=== PATIENT | female | born 1965 | race Caucasian/White ===

== ENCOUNTER 2020-09-20 07:42 | Outpatient (REF) | payer BC, SELFPAY ==
[2020-09-20 12:08] LABS: Alanine Aminotransferase 19 U/L (0-31); Alkaline Phosphatase 105 U/L (39-117); Anion Gap 14 (12-20); Aspartate Amino Transferase 20 U/L (5-31); Bilirubin Total 0.4 mg/dL (0.0-1.0); Blood Urea Nitrogen 12 mg/dL (9-16); Carbon Dioxide 26 mmol/L (22-29); Chloride 103 mmol/L (96-108); Cholesterol 165 mg/dL; Estimated Glomerular Filt Rate > 60; Glucose Fasting 215 mg/dL (60-99); HDL Cholesterol 42 mg/dL; LDL Cholesterol Calculated 73 mg/dl; Potassium 4.7 mmol/l (3.3-5.1); Sodium 138 mmol/L (135-145); Total Protein 6.6 g/dL (6.5-8.0); Triglycerides 250 mg/dL
[2020-09-20 12:29] LABS: Vitamin D 25-OH Total 38.4 ng/mL (>30)
[2020-09-20 12:39] LABS: Creatinine Urine 179.74 mg/dL; Microalbum/Creatinine Ratio Ur 31.1 ug/mg cr
== END 2020-09-20 07:43 | disposition home or self-care (01) ==
LOC: HO.HMGCLDS 07:42
PROVIDERS: PCP Internal Medicine; Visit Provider Internal Medicine
DX: E11.65 Type 2 diabetes mellitus with hyperglycemia (principal); E89.40 Asymptomatic postprocedural ovarian failure; E78.5 Hyperlipidemia, unspecified; I10 Essential (primary) hypertension
CPT/HCPCS: 80053; 80061; 82043; 82306

== ENCOUNTER 2020-10-05 15:12 | Outpatient (REF) | payer BC, SELFPAY ==
[2020-10-05 16:39] LABS: MANUAL DIFF FLAG NO
[2020-10-05 16:48] LABS: Basophils Percent Auto 0.4 % (0-2); Eosinophils Absolute Auto 0.2 X10*3/uL (0.0-0.4); Eosinophils Percent Auto 2.4 % (0-4); Hematocrit 39.3 % (37-47); Hemoglobin 13.3 g/dl (12.0-16.0); Imm Gran Abs Auto 0.04 X10*3/uL (0.00-0.03); Imm Gran Pct Auto 0.5 % (0.0-0.4); Lymphocytes Absolute Auto 1.9 X10*3/uL (1.2-4.9); Lymphocytes Percent Auto 22.2 % (20-40); Mean Corpuscular HGB Conc 33.8 g/dl (31.0-35.0); Mean Corpuscular Hemoglobin 29.1 pg (27.0-33.0); Mean Platelet Volume 9.9 fL (9.4-12.3); Monocytes Absolute Auto 0.9 X10*3/uL (0.1-1.2); Monocytes Percent Auto 10.9 % (2-11); Neutrophils Absolute Auto 5.4 X10*3/uL (2.0-8.3); Neutrophils Percent Auto 63.6 % (45-73); Platelet Count 289 X10*3/uL (160-400); Red Blood Count 4.57 X10*6/uL (4.20-5.50); Red Cell Distribution Width 12.4 % (11.0-16.0); White Blood Count 8.4 X10*3/uL (4.8-10.8)
[2020-10-05 17:05] LABS: Anion Gap 17 (12-20); Blood Urea Nitrogen 15 mg/dL (9-16); Calcium 9.6 mg/dL (8.4-10.2); Carbon Dioxide 25 mmol/L (22-29); Chloride 103 mmol/L (96-108); Estimated Glomerular Filt Rate > 60; Glucose Random 98 mg/dL (60-115); Potassium 5.1 mmol/l (3.3-5.1); Sodium 140 mmol/L (135-145)
== END 2020-10-05 15:13 | disposition home or self-care (01) ==
LOC: HO.HMGCLDS 15:12
PROVIDERS: PCP Internal Medicine; Visit Provider Nurse Practitioner Family
DX: R10.9 Unspecified abdominal pain (principal); Z13.9 Encounter for screening, unspecified
CPT/HCPCS: 36415; 80048; 85025

== ENCOUNTER 2020-10-07 11:13 | Outpatient (REF) | payer BC, SELFPAY ==
--- NOTE | 2020-10-07 11:16 | US_ITS ---
EXAMINATION: US RETROPERITONEAL LIMITED (RENAL ONLY) CLINICAL INFORMATION: Left flank pain. COMPARISON: CT abdomen and pelvis without and with contrast 05/09/2012 TECHNIQUE: Ultrasound of the kidneys and bladder is performed. FINDINGS: RIGHT KIDNEY: 11.1 x 6.3 x 4.8 cm (SAG x AP x TRV). The kidney is normal in size, contour, and echogenicity. Renal cortical thickness is normal. No calculi or focal parenchymal lesions. No hydronephrosis. LEFT KIDNEY: 14.1 x 6.2 x 4.6 cm (SAG x AP x TRV). There is mild to moderate left hydronephrosis. There is mild proximal hydroureter. Obstructing calculus is not identified by ultrasound. No visible intrarenal calculi. No perinephric fluid. The kidney is normal in size, contour, and echogenicity. Renal cortical thickness is normal. No calculi or focal parenchymal lesions. BLADDER: Nondistended. Visualized lumen shows no debris or bladder calculus. US/US renal BI IMPRESSION: 1. Left: Mild to moderate left hydronephrosis and proximal hydroureter. No visible calculi by ultrasound. 2. Right kidney unremarkable. Bladder not distended.
== END 2020-10-07 11:14 | disposition home or self-care (01) ==
LOC: HO.HMGCX 11:13
PROVIDERS: PCP Internal Medicine; Visit Provider Nurse Practitioner Family
DX: R31.9 Hematuria, unspecified (principal); R10.9 Unspecified abdominal pain
CPT/HCPCS: 76775

== ENCOUNTER 2020-10-10 09:32 | Emergency (ER) | payer BC, SELFPAY ==
[2020-10-10 09:47] VITALS: BP 171/83; PULSE 87; RESP 20; TEMP 36.7; O2SAT 98; BMI 28.5
--- NOTE | 2020-10-10 10:00 | ED.ABDPAIN ---
HPI - Abdominal Pain General Chief Complaint: Abdominal Pain Stated Complaint: kidney pain Time Seen by Provider: 10/10/20 09:59 Source: patient Mode of arrival: ambulatory Limitations: no limitations History of Present Illness HPI narrative: patient with history of kidney stones had lithotripsy in the past last stone was 8 years ago been having pain in left flank area for last 10 days off and on for last few days is getting worse and since 04:00 o'clock in the morning pain got worse now radiating to the front with lewis hematuria patient denies any nausea or vomiting no fever no dysuria MD elicited complaint: flank pain Pertinent past history: kidney stones Onset (ago): day(s) (10) Pain Consistency: intermittent Location: L flank Severity: moderate Quality: stabbing Radiation: LLQ Migration to: no migration Exacerbating factors: nothing Context: history of similar episodes Associated symptoms: denies other symptoms Related Data Home Medications Medication Instructions Recorded Confirmed biotin 10,000 mcg capsule mcg PO 09/17/20 cholecalciferol (vitamin D3) 50 50 mcg PO DAILY 09/17/20 mcg (2,000 unit) capsule chromium picolinate 400 mcg tablet 800 mcg PO DAILY 09/17/20 cinnamon bark 500 mg capsule 1,000 mg PO DAILY 09/17/20 flu vac qs 2019(4 yr up)CD(PF) ml IM 09/17/20 multivit,mineral-folic acid 800 tab PO 09/17/20 mcg-vit K 100 mcg-herbal no.289 tablet pravastatin 80 mg tablet 80 mg PO DAILY 09/17/20 Previous Rx's Medication Instructions Recorded glipizide 5 mg tablet, extended 5 mg PO .BID with meals Days 09/17/20 release 24 hr #180 tab losartan 50 mg tablet 50 mg PO DAILY 90 Days #90 tab 09/17/20 metformin 1,000 mg tablet 1,000 mg PO BID 90 Days #180 tab 09/17/20 naproxen 500 mg tablet 500 mg PO BID PRN #60 tab 10/07/20 ondansetron 4 mg PO Q6-8H PRN #10 tab 10/10/20 oxycodone 5 mg PO Q6H PRN #20 tab 10/10/20 Allergies Allergy/AdvReac Type Severity Reaction Status Date / Time No Known Allergies Allergy Verified 09/17/20 11:05 Review of Systems Review of Systems REVIEW OF SYSTEMS: Pertinent positives and negatives are stated above in the history. GEN: no fevers, chills, fatigue HEENT: no nasal congestion, sore throat, ear pain NEURO: no headache, dizziness, focal weakness PULM: no cough, shortness of breath CV: no chest pain, palpitations, LE edema ABD: no nausea, vomiting, diarrhea : no dysuria, urgency, frequency SKIN: no rash ROS otherwise negative x 10 Physical Exam Vital Signs: Vital Signs: Last Vital Signs Temp 97.7 F 10/10/20 11:34 Pulse 81 10/10/20 11:34 Resp 18 10/10/20 11:34 BP 178/94 H 10/10/20 11:34 Pulse Ox 100 10/10/20 11:34 Body Mass Index 28.5 Appearance: Alert. Oriented X3. in moderate distress. Eyes: Pupils equal, round and reactive to light. ENT: Pharynx normal. Neck: Normal inspection. Neck supple. CVS: Normal heart rate and rhythm. Pulses normal. Respiratory: No respiratory distress. Breath sounds normal. Abdomen: Soft and nontender. tenderness + left flank area , bowel sounds are present no mass palpable no hernia palpable Skin: Skin warm and dry. Normal skin color. Normal skin turgor. Extremities: No lower extremity edema. Good range of movement Neuro: Oriented X 3. No motor deficit. No sensory deficit. MDM - Abdominal Pain MDM Narrative Medical decision making narrative: Patient with left flank pain with history of kidney stone hematuria in her urine. CT scan of the abdomen showed 4 mm distal left ureteric stone with moderate hydronephrosis patient received pain medication IV fluids feeling much better now will discharge her home on pain management and follow-up with urologist Differential Diagnosis Differential diagnosis: Likely calculus of kidney Medical Records Attestation: I reviewed the patient's medical records. Lab Data Attestation: I reviewed the patient's lab results. Result diagrams: 10/10/20 10:11 10/10/20 10:11 Labs: Lab Results 10/10/20 10/10/20 10/10/20 Range/Units 10:11 10:11 10:11 WBC 9.6 (4.8-10.8) X10*3/uL RBC 4.54 (4.20-5.50) X10*6/uL Hgb 13.2 (12.0-16.0) g/dl Hct 38.8 (37-47) % MCV 85.5 (80-98) fL MCH 29.1 (27.0-33.0) pg MCHC 34.0 (31.0-35.0) g/dl RDW 12.2 (11.0-16.0) % Plt Count 299 (160-400) X10*3/uL MPV 9.3 L (9.4-12.3) fL Immature Gran % (Auto) 0.5 H (0.0-0.4) % Neut % (Auto) 71.6 (45-73) % Lymph % (Auto) 17.3 L (20-40) % [place] % (Auto) 7.6 (2-11) % Eos % (Auto) 2.6 (0-4) % Baso % (Auto) 0.4 (0-2) % Lymph # (Auto) 1.7 (1.2-4.9) X10*3/uL [place] # (Auto) 0.7 (0.1-1.2) X10*3/uL Eos # (Auto) 0.3 (0.0-0.4) X10*3/uL Baso # (Auto) 0.0 (0.0-0.2) X10*3/uL Abs Immat Gran (auto) 0.05 H (0.00-0.03) X10*3/uL Absolute Neuts (auto) 6.9 (2.0-8.3) X10*3/uL Absolute Nucleated RBC 0.000 (0.0-0.012) X10*3/uL Nucleated RBC % (auto) 0.0 (0.0-0.2) /100WBC PT 10.5 L (10.8-13.0) SEC INR 0.9 (0.9-1.1) Sodium 138 (135-145) mmol/L Potassium 4.5 (3.3-5.1) mmol/l Chloride 100 (96-108) mmol/L Carbon Dioxide 24 (22-29) mmol/L Anion Gap 19 (12-20) BUN 21 H (9-16) mg/dL Creatinine 1.14 (0.5-1.4) mg/dL Estim Creat Clear Calc 44.2 Estimated GFR 49 Random Glucose 272 H D (60-115) mg/dL Calcium 9.5 (8.4-10.2) mg/dL Urine Color Urine Appearance Urine pH (5.0-8.0) Ur Specific [place] (1.005-1.025) Urine Protein (NEG-TRACE) MG/DL Urine Glucose (UA) (NEG) MG/DL Urine Ketones (NEG) MG/DL Urine Blood (NEG) Urine Nitrite (NEG) Ur Leukocyte Esterase (NEG) Urine RBC (0) /HPF Urine WBC (0-4) /HPF Ur Squamous Epith Cells /LPF Urine Bacteria /LPF 10/10/20 Range/Units 11:37 WBC (4.8-10.8) X10*3/uL RBC (4.20-5.50) X10*6/uL Hgb (12.0-16.0) g/dl Hct (37-47) % MCV (80-98) fL MCH (27.0-33.0) pg MCHC (31.0-35.0) g/dl RDW (11.0-16.0) % Plt Count (160-400) X10*3/uL MPV (9.4-12.3) fL Immature Gran % (Auto) (0.0-0.4) % Neut % (Auto) (45-73) % Lymph % (Auto) (20-40) % [place] % (Auto) (2-11) % Eos % (Auto) (0-4) % Baso % (Auto) (0-2) % Lymph # (Auto) (1.2-4.9) X10*3/uL [place] # (Auto) (0.1-1.2) X10*3/uL Eos # (Auto) (0.0-0.4) X10*3/uL Baso # (Auto) (0.0-0.2) X10*3/uL Abs Immat Gran (auto) (0.00-0.03) X10*3/uL Absolute Neuts (auto) (2.0-8.3) X10*3/uL Absolute Nucleated RBC (0.0-0.012) X10*3/uL Nucleated RBC % (auto) (0.0-0.2) /100WBC PT (10.8-13.0) SEC INR (0.9-1.1) Sodium (135-145) mmol/L Potassium (3.3-5.1) mmol/l Chloride (96-108) mmol/L Carbon Dioxide (22-29) mmol/L Anion Gap (12-20) BUN (9-16) mg/dL Creatinine (0.5-1.4) mg/dL Estim Creat Clear Calc Estimated GFR Random Glucose (60-115) mg/dL Calcium (8.4-10.2) mg/dL Urine Color YELLOW Urine Appearance CLOUDY Urine pH 6.5 (5.0-8.0) Ur Specific [place] 1.020 (1.005-1.025) Urine Protein NEG (NEG-TRACE) MG/DL Urine Glucose (UA) >=1000 H (NEG) MG/DL Urine Ketones NEG (NEG) MG/DL Urine Blood 3+ H (NEG) Urine Nitrite NEG (NEG) Ur Leukocyte Esterase NEG (NEG) Urine RBC TNTC H (0) /HPF Urine WBC 0-2 (0-4) /HPF Ur Squamous Epith Cells NONE /LPF Urine Bacteria NONE /LPF Discharge Plan Discharge Clinical Impression: Kidney stone on left side Patient Disposition: Home, Self-Care Instructions: Kidney Stones (ED) Additional Instructions: Take Flomax daily as advised till you have pain. Pain medication as prescribed. Follow-up with urologist Prescriptions: New oxycodone 5 mg tablet 5 mg PO Q6H PRN (Reason: pain) Qty: 20 RF: 0 ondansetron 4 mg tablet,disintegrating 4 mg PO Q6-8H PRN (Reason: nausea and vomiting) Qty: 10 RF: 0 No Action naproxen 500 mg tablet 500 mg PO BID PRN (Reason: pain) Qty: 60 RF: 0 pravastatin 80 mg tablet 80 mg PO DAILY RF: 0 Flucelvax Quad [id number] (PF) 60 mcg (15 mcg x 4)/0.5 mL syringe IM RF: 0 Alive Once Daily Women 50 Plus 800-100 mcg tablet PO RF: 0 cholecalciferol (vitamin D3) 50 mcg (2,000 unit) capsule 50 mcg PO DAILY RF: 0 biotin 10,000 mcg capsule PO RF: 0 cinnamon bark [Cinnamon] 500 mg capsule 1,000 mg PO DAILY RF: 0 chromium picolinate 400 mcg tablet 800 mcg PO DAILY RF: 0 glipizide 5 mg tablet extended release 24hr 5 mg PO .BID with meals 90 Days Qty: 180 RF: 0 metformin 1,000 mg tablet 1,000 mg PO BID 90 Days Qty: 180 RF: 0 losartan 50 mg tablet 50 mg PO DAILY 90 Days Qty: 90 RF: 0 Referrals: Case Castillo MD [Physician] - 3 days [facility] Past Medical History Medical History Diabetes mellitus with hyperglycemia, without long-term current use of insulin Dyslipidemia Essential hypertension Osteoarthritis of left knee Surgical menopause Uterine fibroid Surgical History History of partial hysterectomy Family History Family History Father Diabetes Hypertension Pacemaker Stroke Mother No problems noted. Brother Diabetes Heart disease Brother No problems noted. Sister Family hx-anemia Social History Social History Alcohol intake: never Smoking Status: Never smoker Use of substances other than those prescribed or required for medical reasons: No Advance Directives: No Advance Directives Information Provided: No
--- NOTE | 2020-10-10 10:05 | CT_ITS ---
EXAMINATION: CT ABDOMEN AND PELVIS WITHOUT CONTRAST CLINICAL INFORMATION: Left flank pain with history of stone right COMPARISON: None TECHNIQUE: Multidetector volumetric imaging was performed from the superior aspect of the liver through the pubic symphysis. Sagittal and coronal reformatted images were obtained on the technologist's workstation. This CT examination was performed using dose optimization techniques as appropriate, variously including the following: *Automated exposure control *Adjustment of mA and/or kV according to patient size (this includes techniques or standardized protocols for targeted exams where dose is matched to indication/reason for exam; i.e. extremities or head) *Use of iterative reconstruction technique DLP: 570 mGy-cm FINDINGS: LUNG BASES: The visualized lung bases are unremarkable. LIVER, GALLBLADDER, AND BILIARY TREE: The liver is normal in size, shape, and attenuation. No focal hepatic lesion or biliary ductal dilatation is present. The gallbladder is unremarkable with no evidence of radiopaque gallstones, gallbladder wall thickening, or obvious pericholecystic inflammatory changes. PANCREAS: Unremarkable. SPLEEN: Unremarkable. ADRENAL GLANDS: Unremarkable. KIDNEYS AND URETERS: The kidneys are normal in size, shape, and attenuation. No radiopaque renal calculi seen in the kidneys. There is a 4 mm obstructive left distal ureter radiopaque calculi with mild to moderate hydroureteronephrosis and mild left perinephric stranding. A small extrarenal right kidney pelvises seen there is mild right perinephric stranding. BLADDER: Unremarkable. GASTROINTESTINAL TRACT: There is scattered stool in the right colon without distention. The small bowel loops are normal caliber. Appendix is normal caliber. No inflammatory process seen the abdomen. The stomach is distended recently ingested food. ABDOMINAL WALL: No significant hernia is appreciated. LYMPH NODES: Normal. VASCULAR: Unremarkable. PELVIC VISCERA: The uterus is unremarkable. No adnexal mass or inguinal hernia seen OSSEOUS STRUCTURES: Grade 1 anterolisthesis L4 over L5. There is degenerative disc changes at L4-L5 disc level with mild ventral spondylosis throughout lumbar spine. CT/CT abdomen pelvis wo con IMPRESSION: 4 mm obstructive left distal ureteral stone with mild to moderate hydroureteronephrosis. There is bilateral perinephric stranding without any radiopaque renal calculi. Normal appendix.
[2020-10-10 10:16] LABS: Basophils Percent Auto 0.4 % (0-2); Eosinophils Absolute Auto 0.3 X10*3/uL (0.0-0.4); Eosinophils Percent Auto 2.6 % (0-4); Hematocrit 38.8 % (37-47); Hemoglobin 13.2 g/dl (12.0-16.0); Imm Gran Abs Auto 0.05 X10*3/uL (0.00-0.03); Imm Gran Pct Auto 0.5 % (0.0-0.4); Lymphocytes Absolute Auto 1.7 X10*3/uL (1.2-4.9); Lymphocytes Percent Auto 17.3 % (20-40); Mean Corpuscular Hemoglobin 29.1 pg (27.0-33.0); Mean Corpuscular Volume 85.5 fL (80-98); Mean Platelet Volume 9.3 fL (9.4-12.3); Monocytes Absolute Auto 0.7 X10*3/uL (0.1-1.2); Monocytes Percent Auto 7.6 % (2-11); Neutrophils Absolute Auto 6.9 X10*3/uL (2.0-8.3); Neutrophils Percent Auto 71.6 % (45-73); Platelet Count 299 X10*3/uL (160-400); Red Blood Count 4.54 X10*6/uL (4.20-5.50); Red Cell Distribution Width 12.2 % (11.0-16.0); White Blood Count 9.6 X10*3/uL (4.8-10.8)
[2020-10-10 10:17] LABS: MANUAL DIFF FLAG NO
[2020-10-10] MEDS: Morphine Sulfate 4 MG/ML CARTRIDGE IVPUSH (10:19)
[2020-10-10] MEDS: 0.9 % Sodium Chloride 1,000 ML 999 ML IVCONT (10:19)
[2020-10-10] MEDS: ondansetron HCL 4 MG/2 ML VIAL IVPUSH (10:20)
[2020-10-10] MEDS: Ketorolac Tromethamine 30 MG/ML VIAL IVPUSH (10:20)
[2020-10-10 10:21] LABS: INTERNATIONAL NORM RATIO 0.9 (0.9-1.1); Prothrombin Time 10.5 SEC (10.8-13.0)
[2020-10-10 10:42] LABS: Anion Gap 19 (12-20); Blood Urea Nitrogen 21 mg/dL (9-16); Calcium 9.5 mg/dL (8.4-10.2); Carbon Dioxide 24 mmol/L (22-29); Chloride 100 mmol/L (96-108); Creatinine Clr Calc Pharmacy 44.2; Estimated Glomerular Filt Rate 49; Glucose Random 272 mg/dL (60-115); Potassium 4.5 mmol/l (3.3-5.1); Sodium 138 mmol/L (135-145)
--- NOTE | 2020-10-10 10:51 | PC.NURSE ---
pt reports feeling better after the medication, pain at 5/10
[2020-10-10 10:52] VITALS: BP 183/87; RESP 18
[2020-10-10 11:34] VITALS: BP 178/94; PULSE 81; RESP 18; TEMP 36.5; O2SAT 100
--- NOTE | 2020-10-10 11:38 | PC.NURSE ---
patient a&ox3, c/o low abd/pelvic area pain7-06/14, pt ambulated to bathroom/urine obtained, vss-pt continues to be hypertensive, will continue to monitor.
[2020-10-10 11:49] LABS: Glucose Urine UA >=1000 MG/DL (NEG); Leukocyte Esterase Urine NEG (NEG); Nitrite Urine NEG (NEG); PH 6.5 (5.0-8.0); Urine Blood 3+ (NEG); Urine Ketones NEG (NEG); Urine Protein NEG (NEG-TRACE)
[2020-10-10 11:51] LABS: Appearance Urine CLOUDY; Color Urine YELLOW
[2020-10-10 11:58] LABS: RBC Urine TNTC /HPF (0); WBC Urine 0-2 /HPF (0-4)
[2020-10-10] MEDS: oxyCODONE HCl Immed Release 5 MG TABLET 10 MG PO (13:00)
== END 2020-10-10 13:30 | disposition home or self-care (01) ==
PROVIDERS: Emergency Provider Internal Medicine; PCP Internal Medicine
DX: N20.0 Calculus of kidney (principal); R10.32 Left lower quadrant pain; Z79.899 Other long term (current) drug therapy
CPT/HCPCS: 36415; 74176; 80048; 81001; 85025; 85610; 96361; 96374; 96375; 99284; J1885; J2270; J2405

== ENCOUNTER 2020-12-20 14:22 | Outpatient (REF) | payer BC, SELFPAY | END 2020-12-20 14:23 | disposition home or self-care (01) | LOC: HO.LAB 14:22 | PROVIDERS: Visit Provider Nurse Practitioner Family | DX: N39.0 Urinary tract infection, site not specified (principal) | CPT/HCPCS: 87086 ==

== ENCOUNTER 2020-12-22 07:58 | Outpatient (REF) | payer BC, SELFPAY ==
--- NOTE | ~2020-12-22 | MM_ITS ---
EXAMINATION: MM SCREENING DIGITAL BREAST TOMOSYNTHESIS, BILATERAL CLINICAL INFORMATION: Screening. Asymptomatic. The lifetime risk of breast cancer based on the Tyrer-Cuzick Model is 6%. COMPARISON: Mammography: 11/19/2019, 11/13/2018, 10/18/2017 TECHNIQUE: Digital breast tomosynthesis is performed in both the craniocaudal and mediolateral oblique views along with computer-aided detection (CAD). Synthesized 2D images are generated from the tomosynthesis. Additional left CC view is provided. FINDINGS: There are scattered areas of fibroglandular density (ACR BI-RADS breast composition Category b). There are no significant masses, abnormal calcifications, or other abnormalities. Parenchymal pattern is similar to prior studies. No significant changes. MM/MM tomosynthesis screening BI IMPRESSION: No mammographic evidence of malignancy. ASSESSMENT: BI-RADS 1: Negative RECOMMENDATION: Routine annual mammography screening. This patient's information was entered into a reminder system with a target due date for their next mammogram.
== END 2020-12-22 07:59 | disposition home or self-care (01) ==
LOC: HO.MAMMO 07:58
PROVIDERS: PCP Internal Medicine; Visit Provider Internal Medicine
DX: Z12.31 Encounter for screening mammogram for malignant neoplasm of breast (principal)
CPT/HCPCS: 77063; 77067

== ENCOUNTER 2020-12-24 07:36 | Emergency (ER) | payer BC, SELFPAY ==
--- NOTE | ~2020-12-24 | CT_ITS ---
EXAMINATION: CT ABDOMEN AND PELVIS WITHOUT CONTRAST CLINICAL INFORMATION: Left flank pain COMPARISON: Previous CT October 2020 TECHNIQUE: Multidetector volumetric imaging was performed from the superior aspect of the liver through the pubic symphysis. Sagittal and coronal reformatted images were obtained on the technologist's workstation. This CT examination was performed using dose optimization techniques as appropriate, variously including the following: *Automated exposure control *Adjustment of mA and/or kV according to patient size (this includes techniques or standardized protocols for targeted exams where dose is matched to indication/reason for exam; i.e. extremities or head) *Use of iterative reconstruction technique DLP: 503 mGy-cm FINDINGS: LUNG BASES: The visualized lung bases are unremarkable. LIVER, GALLBLADDER, AND BILIARY TREE: The liver is normal in size, shape, and attenuation. No focal hepatic lesion or biliary ductal dilatation is present. The gallbladder is unremarkable with no evidence of radiopaque gallstones, gallbladder wall thickening, or obvious pericholecystic inflammatory changes. PANCREAS: Unremarkable. SPLEEN: Unremarkable. ADRENAL GLANDS: Unremarkable. KIDNEYS AND URETERS: There is mild left hydronephrosis and ureteral dilatation from a 3 x 4 mm left distal ureteral stone. There has been little movement of the stone compared to October 2020 exam. The right kidney is unremarkable. BLADDER: Unremarkable. GASTROINTESTINAL TRACT: The small and large bowel are unremarkable. The appendix is unremarkable. ABDOMINAL WALL: No significant hernia is appreciated. LYMPH NODES: Normal. VASCULAR: There is evidence of mild atherosclerotic disease. PELVIC VISCERA: Unremarkable. OSSEOUS STRUCTURES: There is mild anterior subluxation of L3-L4 with respect L5 probably due to facet arthritis. There are degenerative changes of the spine. CT/CT abdomen pelvis wo con IMPRESSION: Mild left hydronephrosis and ureteral dilatation from a 3 x 4 mm left distal ureteral stone. There is been little distal movement of the stone compared to previous exam October 2020.
[2020-12-24 07:47] VITALS: BP 157/79; PULSE 103; RESP 16; TEMP 36.1; O2SAT 100; BMI 29.2
--- NOTE | 2020-12-24 08:06 | ED.ABDPAIN ---
HPI - Abdominal Pain General Chief Complaint: Abdominal Pain Stated Complaint: VOMITING 3 DAYS Time Seen by Provider: 12/24/20 08:03 Source: patient Mode of arrival: ambulatory Limitations: no limitations History of Present Illness HPI narrative: 55 yo female here with epigastric pain and n/v just dx with UTI on Sunday by PCP started on macrobid which she has been able to keep down her antibiotic but then noted L flank pain on Sunday has hx of stones took oxycodone she had at home since then has had epigastric pain n/v since but can keep her antibiotics down MD elicited complaint: abdominal pain and flank pain Pertinent past history: past UTI Onset (ago): day(s) (4 days ago ) Pain Consistency: intermittent Location: epigastric and L flank Severity: moderate Quality: stabbing Radiation: none Migration to: no migration Exacerbating factors: eating Relieving factors: vomiting Context: recent antibiotic use Associated symptoms: nausea and vomiting Related Data Home Medications Medication Instructions Recorded Confirmed biotin 10,000 mcg capsule mcg PO 09/17/20 cholecalciferol (vitamin D3) 50 50 mcg PO DAILY 09/17/20 mcg (2,000 unit) capsule chromium picolinate 400 mcg tablet 800 mcg PO DAILY 09/17/20 cinnamon bark 500 mg capsule 1,000 mg PO DAILY 09/17/20 flu vac qs 2019(4 yr up)CD(PF) ml IM 09/17/20 multivit,mineral-folic acid 800 tab PO 09/17/20 mcg-vit K 100 mcg-herbal no.289 tablet pravastatin 80 mg tablet 80 mg PO DAILY 09/17/20 Previous Rx's Medication Instructions Recorded naproxen 500 mg tablet 500 mg PO BID PRN #60 tab 10/07/20 ondansetron 4 mg PO Q6-8H PRN #10 tab 10/10/20 oxycodone 5 mg PO Q6H PRN #20 tab 10/10/20 glipizide 5 mg tablet, extended 5 mg PO BID #60 tab 12/06/20 release 24 hr losartan 50 mg tablet 50 mg PO DAILY #30 tab 12/07/20 metformin 1,000 mg tablet 1,000 mg PO BID #60 tab 12/07/20 nitrofurantoin macrocrystal 100 mg 100 mg PO BID 7 Days #14 cap 12/20/20 capsule cyclobenzaprine 10 mg PO TID PRN #14 tab 12/24/20 metoclopramide HCl [Reglan] 10 mg PO Q6H PRN #20 tab 12/24/20 omeprazole 20 mg PO DAILY 10 Days #10 cap 12/24/20 ondansetron 4 mg PO Q8H PRN #20 tab 12/24/20 tamsulosin 0.4 mg PO DAILY 5 Days #5 cap 12/24/20 Allergies Allergy/AdvReac Type Severity Reaction Status Date / Time No Known Allergies Allergy Verified 09/17/20 11:05 Review of Systems Review of Systems Constitutional : No Weight loss, No Fever, No Chills ENT/Mouth : No sore throat, No Rhinorrhea Eyes: No Swelling, No Redness Cardiovascular : No Chest Pain, No SOB, NoEdema Respiratory : No Cough, No Sputum, No Wheezing Gastrointestinal : Positive Nausea, Positive Vomiting, no Diarrhea, positive abdominal Pain, No Hematochezia, No Melena Genitourinary : pos Dysuria, pos Urinary Frequency, No Hematuria, No Urgency Musculoskeletal : No joint pain, No Myalgias, No Joint Swelling Skin : No Skin Lesions, No rash Neuro : No Weakness, No Numbness, No Dizziness, No Headache Psych : No Anxiety/Panic, No Depression Heme/Lymph: No Bruising, No Lymphadenopathy Endocrine : No Polyuria, No Polydipsia All other systems reviewed and are negative. Physical Exam Vital Signs: Vital Signs: Last Vital Signs Temp 97.0 F 12/24/20 07:47 Pulse 85 12/24/20 13:13 Resp 16 12/24/20 13:12 BP 161/85 H 12/24/20 13:13 Pulse Ox 97 12/24/20 13:13 Body Mass Index 29.2 Appearance: Alert. Oriented X3. No acute distress. Eyes: Pupils equal, round and reactive to light. ENT: Pharynx normal. Neck: Normal inspection. Neck supple. CVS: Normal heart rate and rhythm. Pulses normal. Respiratory: No respiratory distress. Breath sounds normal. Abdomen: Soft and epigastric ttp no rebound or guarding. Skin: Skin warm and dry. Normal skin color. Normal skin turgor. Extremities: No lower extremity edema. No calf ttp Neuro: Oriented X 3. No motor deficit. No sensory deficit. Course Course Course Narrative: no movement of stone, normal renal function, she feels much better - will let Urology know as she will need a definitive procedure to correct her pain Dr. Castillo to come evaluate the patient feels better able to tolerate PO, patient states she is going to follow up next week MDM - Abdominal Pain MDM Narrative Medical decision making narrative: 55 yo female with hx of UTI, DM, HTN, HPL here with recent UTI and start of L flank pain then developed epigastric pain with n/v - at this time will need labs, CT scan for renal colic, IVF and IV medications for nausea/reflux, repeat UA dispo per results and findings. Lab Data Result diagrams: 12/24/20 08:24 12/24/20 08:24 Labs: Lab Results 12/24/20 12/24/20 12/24/20 Range/Units 08:24 08:24 08:24 WBC 8.2 (4.8-10.8) X10*3/uL RBC 4.84 (4.20-5.50) X10*6/uL Hgb 13.9 (12.0-16.0) g/dl Hct 41.1 (37-47) % MCV 84.9 (80-98) fL MCH 28.7 (27.0-33.0) pg MCHC 33.8 (31.0-35.0) g/dl RDW 12.8 (11.0-16.0) % Plt Count 315 (160-400) X10*3/uL MPV 9.6 (9.4-12.3) fL Immature Gran % (Auto) 0.5 H (0.0-0.4) % Neut % (Auto) 78.7 H (45-73) % Lymph % (Auto) 13.8 L (20-40) % Alexander % (Auto) 6.7 (2-11) % Eos % (Auto) 0.2 (0-4) % Baso % (Auto) 0.1 (0-2) % Lymph # (Auto) 1.1 L (1.2-4.9) X10*3/uL Alexander # (Auto) 0.6 (0.1-1.2) X10*3/uL Eos # (Auto) 0.0 (0.0-0.4) X10*3/uL Baso # (Auto) 0.0 (0.0-0.2) X10*3/uL Abs Immat Gran (auto) 0.04 H (0.00-0.03) X10*3/uL Absolute Neuts (auto) 6.4 (2.0-8.3) X10*3/uL Absolute Nucleated RBC 0.000 (0.0-0.012) X10*3/uL Nucleated RBC % (auto) 0.0 (0.0-0.2) /100WBC Hold Blue Top SEE NOTE Sodium 135 (135-145) mmol/L Potassium 4.8 (3.3-5.1) mmol/L Chloride 93 L (96-108) mmol/L Carbon Dioxide 31 H (22-29) mmol/L Anion Gap 16 (12-20) BUN 22 H (9-16) mg/dL Creatinine 0.81 (0.5-1.4) mg/dL Estim Creat Clear Calc 63.2 Estimated GFR > 60 Random Glucose 316 H (60-115) mg/dL Calcium 11.1 H D (8.4-10.2) mg/dL Magnesium 1.7 (1.6-2.6) mg/dL Total Bilirubin 0.7 (0.0-1.0) mg/dL Direct Bilirubin 0.3 (0.0-0.5) mg/dL AST 18 (5-31) U/L ALT 21 (0-31) U/L Alkaline Phosphatase 77 D (39-117) U/L Total Protein 7.6 (6.5-8.0) g/dL Albumin 4.7 (3.5-5.0) g/dL Lipase 13 (8-78) U/L Urine Color Urine Appearance Urine pH (5.0-8.0) Ur Specific [place] (1.005-1.025) Urine Protein (NEG-TRACE) MG/DL Urine Glucose (UA) (NEG) MG/DL Urine Ketones (NEG) MG/DL Urine Blood (NEG) Urine Nitrite (NEG) Ur Leukocyte Esterase (NEG) Urine RBC (0) /HPF Urine WBC (0-4) /HPF Ur Squamous Epith Cells /LPF Urine Bacteria /LPF COVID-19 (VY) (Negative) COVID-19 Clin Com 12/24/20 12/24/20 Range/Units 08:24 11:20 WBC (4.8-10.8) X10*3/uL RBC (4.20-5.50) X10*6/uL Hgb (12.0-16.0) g/dl Hct (37-47) % MCV (80-98) fL MCH (27.0-33.0) pg MCHC (31.0-35.0) g/dl RDW (11.0-16.0) % Plt Count (160-400) X10*3/uL MPV (9.4-12.3) fL Immature Gran % (Auto) (0.0-0.4) % Neut % (Auto) (45-73) % Lymph % (Auto) (20-40) % Alexander % (Auto) (2-11) % Eos % (Auto) (0-4) % Baso % (Auto) (0-2) % Lymph # (Auto) (1.2-4.9) X10*3/uL Alexander # (Auto) (0.1-1.2) X10*3/uL Eos # (Auto) (0.0-0.4) X10*3/uL Baso # (Auto) (0.0-0.2) X10*3/uL Abs Immat Gran (auto) (0.00-0.03) X10*3/uL Absolute Neuts (auto) (2.0-8.3) X10*3/uL Absolute Nucleated RBC (0.0-0.012) X10*3/uL Nucleated RBC % (auto) (0.0-0.2) /100WBC Hold Blue Top Sodium (135-145) mmol/L Potassium (3.3-5.1) mmol/L Chloride (96-108) mmol/L Carbon Dioxide (22-29) mmol/L Anion Gap (12-20) BUN (9-16) mg/dL Creatinine (0.5-1.4) mg/dL Estim Creat Clear Calc Estimated GFR Random Glucose (60-115) mg/dL Calcium (8.4-10.2) mg/dL Magnesium (1.6-2.6) mg/dL Total Bilirubin (0.0-1.0) mg/dL Direct Bilirubin (0.0-0.5) mg/dL AST (5-31) U/L ALT (0-31) U/L Alkaline Phosphatase (39-117) U/L Total Protein (6.5-8.0) g/dL Albumin (3.5-5.0) g/dL Lipase (8-78) U/L Urine Color YELLOW Urine Appearance CLEAR Urine pH 6.0 (5.0-8.0) Ur Specific [place] 1.015 (1.005-1.025) Urine Protein NEG (NEG-TRACE) MG/DL Urine Glucose (UA) 500 H (NEG) MG/DL Urine Ketones 15 (NEG) MG/DL Urine Blood TRACE (NEG) Urine Nitrite NEG (NEG) Ur Leukocyte Esterase NEG (NEG) Urine RBC 1-4 (0) /HPF Urine WBC 5-9 H (0-4) /HPF Ur Squamous Epith Cells 1+ /LPF Urine Bacteria TRACE /LPF COVID-19 (VY) Negative (Negative) COVID-19 Clin Com See Note ECG Data Attestation: I personally reviewed and interpreted this ECG as follows: ECG interpretation date: 12/24/20 ECG interpretation time: 08:27 Interpretation: Rate: 79 Rhythm: NSR [place]: normal Normal P waves. Normal DIDI. Normal QRS complex. ST T wave : normal no VALENTÍN qTC: normal prior studies: no acute ischemia The study has been interpreted contemporaneously by me. . Discharge Plan Discharge Clinical Impression: Flank pain, acute, Ureterolithiasis Vomiting Qualifiers: Vomiting type: unspecified Vomiting Intractability: non-intractable Nausea presence: with nausea Qualified Code(s): R11.2 - Nausea with vomiting, unspecified Patient Disposition: Home, Self-Care Instructions: Renal Colic (ED) Additional Instructions: return to ED for any worsening symptoms or concerns continue your antibiotics Prescriptions: New cyclobenzaprine 10 mg tablet 10 mg PO TID PRN (Reason: muscle spasm) Qty: 14 RF: 0 tamsulosin 0.4 mg capsule 0.4 mg PO DAILY 5 Days Qty: 5 RF: 0 ondansetron 4 mg tablet,disintegrating 4 mg PO Q8H PRN (Reason: nausea and vomiting) Qty: 20 RF: 0 omeprazole 20 mg capsule,delayed release(DR/EC) 20 mg PO DAILY 10 Days Qty: 10 RF: 0 metoclopramide HCl [Reglan] 10 mg tablet 10 mg PO Q6H PRN (Reason: nausea and vomiting) Qty: 20 RF: 0 No Action naproxen 500 mg tablet 500 mg PO BID PRN (Reason: pain) Qty: 60 RF: 0 glipizide 5 mg tablet extended release 24hr 5 mg PO BID Qty: 60 RF: 2 metformin 1,000 mg tablet 1,000 mg PO BID Qty: 60 RF: 2 losartan 50 mg tablet 50 mg PO DAILY Qty: 30 RF: 2 oxycodone 5 mg tablet 5 mg PO Q6H PRN (Reason: pain) Qty: 20 RF: 0 ondansetron 4 mg tablet,disintegrating 4 mg PO Q6-8H PRN (Reason: nausea and vomiting) Qty: 10 RF: 0 nitrofurantoin macrocrystal 100 mg capsule 100 mg PO BID 7 Days Qty: 14 RF: 0 pravastatin 80 mg tablet 80 mg PO DAILY RF: 0 Flucelvax Quad 2911-2725 (PF) 60 mcg (15 mcg x 4)/0.5 mL syringe IM RF: 0 Alive Once Daily Women 50 Plus 800-100 mcg tablet PO RF: 0 cholecalciferol (vitamin D3) 50 mcg (2,000 unit) capsule 50 mcg PO DAILY RF: 0 biotin 10,000 mcg capsule PO RF: 0 cinnamon bark [Cinnamon] 500 mg capsule 1,000 mg PO DAILY RF: 0 chromium picolinate 400 mcg tablet 800 mcg PO DAILY RF: 0 Referrals: Case Castillo MD [Physician] - 3 days (Sunday) Stand Alone Forms: Work/School Release [facility] Past Medical History Attestation statement: The following information was validated with the patient. Medical History Diabetes mellitus with hyperglycemia, without long-term current use of insulin Dyslipidemia Essential hypertension Osteoarthritis of left knee Surgical menopause Uterine fibroid Surgical History History of partial hysterectomy Family History Family History Father Diabetes Hypertension Pacemaker Stroke Mother No problems noted. Brother Diabetes Heart disease Brother No problems noted. Sister Family hx-anemia Social History Social History Alcohol intake: never Smoking Status: Never smoker Use of substances other than those prescribed or required for medical reasons: No Advance Directives: No Advance Directives Information Provided: Yes
--- NOTE | 2020-12-24 08:21 | ECG_ITS ---
Test Reason : EDMD Blood Pressure : / mmHG Vent. Rate : 079 BPM Atrial Rate : 079 BPM P-R Int : 134 ms QRS Dur : 080 ms QT Int : 384 ms P-R-T Axes : 041 -02 006 degrees QTc Int : 440 ms Normal sinus rhythm Normal ECG No previous ECGs available Referred By: Stefanie Jung Electronically Signed By:Troy Hunt
[2020-12-24 08:35] LABS: MANUAL DIFF FLAG NO
[2020-12-24 08:37] LABS: Basophils Percent Auto 0.1 % (0-2); Eosinophils Percent Auto 0.2 % (0-4); Hematocrit 41.1 % (37-47); Hemoglobin 13.9 g/dl (12.0-16.0); Imm Gran Abs Auto 0.04 X10*3/uL (0.00-0.03); Imm Gran Pct Auto 0.5 % (0.0-0.4); Lymphocytes Absolute Auto 1.1 X10*3/uL (1.2-4.9); Lymphocytes Percent Auto 13.8 % (20-40); Mean Corpuscular HGB Conc 33.8 g/dl (31.0-35.0); Mean Corpuscular Hemoglobin 28.7 pg (27.0-33.0); Mean Corpuscular Volume 84.9 fL (80-98); Mean Platelet Volume 9.6 fL (9.4-12.3); Monocytes Absolute Auto 0.6 X10*3/uL (0.1-1.2); Monocytes Percent Auto 6.7 % (2-11); Neutrophils Absolute Auto 6.4 X10*3/uL (2.0-8.3); Neutrophils Percent Auto 78.7 % (45-73); Platelet Count 315 X10*3/uL (160-400); Red Blood Count 4.84 X10*6/uL (4.20-5.50); Red Cell Distribution Width 12.8 % (11.0-16.0); White Blood Count 8.2 X10*3/uL (4.8-10.8)
[2020-12-24] MEDS: diphenhydrAMINE HCL 50 MG/ML VIAL 25 MG IVPUSH (08:50)
[2020-12-24] MEDS: Famotidine/PF 20 MG/2 ML VIAL IVPUSH (08:50)
[2020-12-24] MEDS: Metoclopramide HCl 10 MG/2 ML VIAL 5 MG IVPUSH (08:50)
[2020-12-24] MEDS: 0.9 % Sodium Chloride 1,000 ML 999 ML IVCONT ×2 (08:50→11:18)
[2020-12-24 08:56] LABS: COVID-19 Test Negative (Negative); IDNOW Serial# 9DD0AD1C
[2020-12-24 09:16] LABS: Alanine Aminotransferase 21 U/L (0-31); Albumin Level 4.7 g/dL (3.5-5.0); Alkaline Phosphatase 77 U/L (39-117); Anion Gap 16 (12-20); Aspartate Amino Transferase 18 U/L (5-31); Bilirubin Direct 0.3 mg/dL (0.0-0.5); Bilirubin Total 0.7 mg/dL (0.0-1.0); Blood Urea Nitrogen 22 mg/dL (9-16); Calcium 11.1 mg/dL (8.4-10.2); Carbon Dioxide 31 mmol/L (22-29); Chloride 93 mmol/L (96-108); Creatinine Clr Calc Pharmacy 63.2; Estimated Glomerular Filt Rate > 60; Glucose Random 316 mg/dL (60-115); Lipase 13 U/L (8-78); Magnesium 1.7 mg/dL (1.6-2.6); Potassium 4.8 mmol/L (3.3-5.1); Sodium 135 mmol/L (135-145); Total Protein 7.6 g/dL (6.5-8.0)
[2020-12-24 11:22] VITALS: BP 166/80; PULSE 89; RESP 15; O2SAT 97
[2020-12-24 11:50] LABS: Glucose Urine UA 500 MG/DL (NEG); Leukocyte Esterase Urine NEG (NEG); Nitrite Urine NEG (NEG); Specific Gravity - Urine 1.015 (1.005-1.025); Urine Blood TRACE (NEG); Urine Ketones 15 MG/DL (NEG); Urine Protein NEG (NEG-TRACE)
[2020-12-24 11:52] LABS: Appearance Urine CLEAR; Color Urine YELLOW
[2020-12-24 12:05] LABS: Bacteria Urine TRACE /LPF; Squamous Epithelial Cell Urine 1+ /LPF; UACC CULT YES
[2020-12-24 13:12] VITALS: RESP 16
[2020-12-24] MEDS: Morphine Sulfate 4 MG/ML CARTRIDGE IVPUSH (13:12)
[2020-12-24 13:13] VITALS: BP 161/85; PULSE 85; O2SAT 97
--- NOTE | 2020-12-24 13:47 | P.CNUR_ITS ---
History of Present Illness Consult details Consult date: 12/24/20 Narrative: Mayte is a 55-year-old female Had presented back in October with left-sided flank pain Concern regarding UTI Original imaging showed distal ureteric stone Repeat imaging today with distal ureteric stone Discussed with Mayte Recommend intervention based on failure to progress Will be organized for outpatient retrograde ureteroscopy laser lithotripsy stent placement Review of Systems Review of Systems: Yes all other systems are reviewed and are negative PMFSH Past Medical History Medical History Diabetes mellitus with hyperglycemia, without long-term current use of insulin Dyslipidemia Essential hypertension Osteoarthritis of left knee Surgical menopause Uterine fibroid Family History Family History Father Diabetes Hypertension Pacemaker Stroke Mother No problems noted. Brother Diabetes Heart disease Brother No problems noted. Sister Family hx-anemia Surgical History Surgical History History of partial hysterectomy Social History Social History Alcohol intake: never Smoking Status: Never smoker Use of substances other than those prescribed or required for medical reasons: No Advance Directives: No Advance Directives Information Provided: Yes Meds Allergies Allergy/AdvReac Type Severity Reaction Status Date / Time No Known Allergies Allergy Verified 09/17/20 11:05 Home Medications Medication Instructions Recorded Confirmed Last Taken Type biotin 10,000 mcg capsule mcg PO 09/17/20 Unknown History cholecalciferol (vitamin D3) 50 50 mcg PO DAILY 09/17/20 Unknown History mcg (2,000 unit) capsule chromium picolinate 400 mcg tablet 800 mcg PO DAILY 09/17/20 Unknown History cinnamon bark 500 mg capsule 1,000 mg PO DAILY 09/17/20 Unknown History flu vac qs 2019(4 yr up)CD(PF) ml IM 09/17/20 Unknown History multivit,mineral-folic acid 800 tab PO 09/17/20 Unknown History mcg-vit K 100 mcg-herbal no.289 tablet pravastatin 80 mg tablet 80 mg PO DAILY 09/17/20 Unknown History Physical Exam Vital Signs: Vital Signs: Last Vital Signs Temp 97.0 F 12/24/20 07:47 Pulse 85 12/24/20 13:13 Resp 16 12/24/20 13:12 BP 161/85 H 12/24/20 13:13 Pulse Ox 97 12/24/20 13:13 Body Mass Index 29.2 Const: General: cooperative, healthy appearing, comfortable and no acute distress Nutritional Appearance: average body habitus Orientation/consciousness: oriented to person, oriented to place and oriented to time Eyes: General: appearance normal, both eyes and all related structures Chest: Chest palpation & inspection: normal inspection of the chest Resp: Effort & Inspection: normal respiratory effort Cardio: Rate: regular rate GI: Inspection: Yes normal to inspection Skin: Hair: normal Neuro: General: oriented to person, oriented to place and oriented to time Extrem: General: Yes normal to inspection Results Labs Result diagrams: 12/24/20 08:24 12/24/20 08:24 Labs: Abnormal lab results 12/24/20 12/24/20 12/24/20 Range/Units 08:24 08:24 11:20 Immature Gran % (Auto) 0.5 H (0.0-0.4) % Neut % (Auto) 78.7 H (45-73) % Lymph % (Auto) 13.8 L (20-40) % Lymph # (Auto) 1.1 L (1.2-4.9) X10*3/uL Abs Immat Gran (auto) 0.04 H (0.00-0.03) X10*3/uL Chloride 93 L (96-108) mmol/L Carbon Dioxide 31 H (22-29) mmol/L BUN 22 H (9-16) mg/dL Random Glucose 316 H (60-115) mg/dL Calcium 11.1 H D (8.4-10.2) mg/dL Urine Glucose (UA) 500 H (NEG) MG/DL Urine WBC 5-9 H (0-4) /HPF Short CBC 12/24/20 Range/Units 08:24 WBC 8.2 (4.8-10.8) X10*3/uL Hgb 13.9 (12.0-16.0) g/dl Hct 41.1 (37-47) % Plt Count 315 (160-400) X10*3/uL BMP 12/24/20 08:24 Sodium 135 Potassium 4.8 Chloride 93 L Carbon Dioxide 31 H BUN 22 H Creatinine 0.81 Calcium 11.1 H D Liver Function 02/19/21 Range/Units 08:24 Total Bilirubin 0.7 (0.0-1.0) mg/dL Direct Bilirubin 0.3 (0.0-0.5) mg/dL AST 18 (5-31) U/L ALT 21 (0-31) U/L Alkaline Phosphatase 77 D (39-117) U/L Albumin 4.7 (3.5-5.0) g/dL Urine 12/24/20 Range/Units 11:20 Urine Color YELLOW Urine Appearance CLEAR Urine pH 6.0 (5.0-8.0) Ur Specific [place] 1.015 (1.005-1.025) Urine Protein NEG (NEG-TRACE) MG/DL Urine Glucose (UA) 500 H (NEG) MG/DL All other labs normal. KIDNEYS AND URETERS: There is mild left hydronephrosis and ureteral dilatation from a 3 x 4 mm left distal ureteral stone. There has been little movement of the stone compared to October 2020 exam. The right kidney is unremarkable. Assessment and Plan (1) Ureterolithiasis: Status: Acute Left distal ureteric stone plan for procedure Ureteroscopy We discussed the nature of the decision and reasonable alternatives for performing the above surgery. Interventions include chemical dissolution, ESWL, ureteroscopy with laser lithotripsy and stent placement, PCNL. Options such as medical therapy were discussed. The relative uncertainties and benefits related to each alternate procedure were adequately discussed. General surgical risks including, but not limited to, belen n, bleeding, infection, myocardial infarction, pulmonary embolus, deep vein thrombosis and cerebrovascular accident which may result in further hospitalization were discussed. Full disclosure of the procedure as well as all major risks, benefits and complications were discussed including but not limited to damage to the urethra, bladder and kidney infection, damage to the ureter, stent migration or malposition, scarring to the renal pelvis, remnant stone fragments, subsequent stone passage with need for secondary procedures. The overall secondary procedure rate is approximately 10-15%. The success rate of the procedure was discussed. Success of the procedure in the short-term does not necessarily guarantee that long-term success will be maintained. Suitable follow up will need to be maintained. The patient showed understanding of discussion and wishes to proceed with - cystoscopy, retrograde, ureteroscopy, possible lithotripsy/stone basketing and stent on the left side
[2020-12-24 14:01] VITALS: BP 144/76; PULSE 87; RESP 14; O2SAT 97
== END 2020-12-24 14:08 | disposition home or self-care (01) ==
PROVIDERS: Emergency Provider Emergency Medicine; PCP Internal Medicine
DX: N20.1 Calculus of ureter (principal); R10.13 Epigastric pain; R11.2 Nausea with vomiting, unspecified; Z20.822 Contact with and (suspected) exposure to COVID-19; Z79.899 Other long term (current) drug therapy
CPT/HCPCS: 36415; 74176; 80048; 80076; 81001; 83690; 83735; 85025; 87086; 87635; 93005; 99284; J1200; J2270; J2765

== ENCOUNTER 2020-12-30 07:25 | Outpatient (REF) | payer BC, SELFPAY ==
[2020-12-30 11:55] LABS: Alanine Aminotransferase 12 U/L (0-31); Anion Gap 13 (12-20); Aspartate Amino Transferase 12 U/L (5-31); Blood Urea Nitrogen 17 mg/dL (9-16); Calcium 8.8 mg/dL (8.4-10.2); Carbon Dioxide 27 mmol/L (22-29); Chloride 106 mmol/L (96-108); Cholesterol 138 mg/dL; Estimated Glomerular Filt Rate > 60; Glucose Fasting 164 mg/dL (60-99); HDL Cholesterol 31 mg/dL; LDL Cholesterol Calculated 74 mg/dl; Potassium 4.1 mmol/L (3.3-5.1); Sodium 142 mmol/L (135-145); Triglycerides 168 mg/dL
[2020-12-30 12:02] LABS: Vitamin D 25-OH Total 39.6 ng/mL (>30)
[2020-12-30 12:03] LABS: Estimated Average Glucose 169 mg/dL; Hemoglobin A1c % 7.5 %
== END 2020-12-30 07:26 | disposition home or self-care (01) ==
LOC: HO.HMGCLDS 07:25
PROVIDERS: PCP Internal Medicine; Visit Provider Internal Medicine
DX: E11.65 Type 2 diabetes mellitus with hyperglycemia (principal); E78.5 Hyperlipidemia, unspecified; E89.40 Asymptomatic postprocedural ovarian failure; I10 Essential (primary) hypertension
CPT/HCPCS: 36415; 80048; 80061; 82306; 83036; 84450; 84460

== ENCOUNTER 2021-01-03 10:02 | Day surgery (SDC) | payer BC, SELFPAY ==
--- NOTE | 2020-12-31 13:34 | P.CONAN_ITS ---
Documented by User: Floresita Kinsey 12/31/20 13:38 HPI - Anesthesia Eval Consult details Narrative: 55yo F for Cystoscopy, Ureteroroscopy, Retro, Laser PMFSH Active Problems Active Problems: All Active Problems (Updated 12/27/20 @ 15:16 by Catalina Tavares MD) Nephrolithiasis (Acute) UTI (urinary tract infection) (Acute) Hematuria (Acute) Flank pain, acute (Acute) Osteoarthritis of left knee (Acute) Diabetes mellitus with hyperglycemia, without long-term current use of insulin (Acute) Surgical menopause (Acute) Dyslipidemia (Acute) Essential hypertension (Acute) Past Medical History Medical History Diabetes mellitus with hyperglycemia, without long-term current use of insulin Dyslipidemia Essential hypertension Nephrolithiasis Osteoarthritis of left knee Surgical menopause Uterine fibroid Family History Family History Father Diabetes Hypertension Pacemaker Stroke Mother No problems noted. Brother Diabetes Heart disease Brother No problems noted. Sister Family hx-anemia Surgical History Surgical History History of partial hysterectomy Social History Social History Alcohol intake: never Smoking Status: Never smoker Use of substances other than those prescribed or required for medical reasons: No Advance Directives: No Advance Directives Information Provided: Yes Meds Allergies Allergy/AdvReac Type Severity Reaction Status Date / Time No Known Allergies Allergy Verified 01/03/21 10:17 Home Medications Medication Instructions Recorded Confirmed Last Taken Type biotin 10,000 mcg capsule mcg PO 09/17/20 12/31/20 Unknown History cholecalciferol (vitamin D3) 50 50 mcg PO DAILY 09/17/20 12/31/20 Unknown History mcg (2,000 unit) capsule chromium picolinate 400 mcg tablet 800 mcg PO DAILY 09/17/20 12/31/20 Unknown History cinnamon bark 500 mg capsule 1,000 mg PO DAILY 09/17/20 12/31/20 Unknown History flu vac qs 2019(4 yr up)CD(PF) ml IM 09/17/20 12/31/20 Unknown History multivit,mineral-folic acid 800 tab PO 09/17/20 12/31/20 Unknown History mcg-vit K 100 mcg-herbal no.289 tablet pravastatin 80 mg tablet 80 mg PO DAILY 09/17/20 12/31/20 Unknown History Exam Exam Date and Time: December 31, 2020 1334 Pertinent Lab Results Pertinent Lab Results: Laboratory Tests 12/24/20 12/30/20 08:24 07:29 WBC 8.2 Hgb 13.9 Hct 41.1 Plt Count 315 Sodium 142 Potassium 4.1 Chloride 106 Carbon Dioxide 27 BUN 17 H Creatinine 0.73 Narrative Narrative: EKG 12/2020 Normal sinus rhythm Normal ECG No previous ECGs available Assessment and Plan Assessment Anesthesia Assessment: Chart Reviewed Documented by User: Susana Anti 01/03/21 11:14 [facility] Past Medical History Medical History Diabetes mellitus with hyperglycemia, without long-term current use of insulin Dyslipidemia Essential hypertension Nephrolithiasis Osteoarthritis of left knee Surgical menopause Uterine fibroid Family History Family History Father Diabetes Hypertension Pacemaker Stroke Mother No problems noted. Brother Diabetes Heart disease Brother No problems noted. Sister Family hx-anemia Surgical History Surgical History History of partial hysterectomy Social History Social History Alcohol intake: never Smoking Status: Never smoker Use of substances other than those prescribed or required for medical reasons: No Advance Directives: No Advance Directives Information Provided: Yes Meds Allergies Allergy/AdvReac Type Severity Reaction Status Date / Time No Known Allergies Allergy Verified 01/03/21 10:17 Home Medications Medication Instructions Recorded Confirmed Last Taken Type biotin 10,000 mcg capsule mcg PO 09/17/20 12/31/20 Unknown History cholecalciferol (vitamin D3) 50 50 mcg PO DAILY 09/17/20 12/31/20 Unknown H istory mcg (2,000 unit) capsule chromium picolinate 400 mcg tablet 800 mcg PO DAILY 09/17/20 12/31/20 Unknown History cinnamon bark 500 mg capsule 1,000 mg PO DAILY 09/17/20 12/31/20 Unknown History flu vac qs 2019(4 yr up)CD(PF) ml IM 09/17/20 12/31/20 Unknown History multivit,mineral-folic acid 800 tab PO 09/17/20 12/31/20 Unknown History mcg-vit K 100 mcg-herbal no.289 tablet pravastatin 80 mg tablet 80 mg PO DAILY 09/17/20 12/31/20 Unknown History
[2021-01-03] VITALS (7 sets, daily range): BP systolic 131–160; BP diastolic 77–90; PULSE 78–97; RESP 15–18; TEMP 36.1–36.6; O2SAT 97–99; BMI 28.5
--- NOTE | ~2021-01-03 | FL_ITS ---
EXAMINATION: XR FLUOROSCOPY WITH IMAGES CLINICAL INFORMATION: Left distal ureteral stone. COMPARISON: None. TECHNIQUE: Fluoroscopy performed by Dr. Case Castillo. Fluoroscopy time: 25.2 seconds DAP: 7.76 mGycm2 Images: 2 FINDINGS: Contrast-filled distal ureter reveals mild irregularity involving the left distal ureter with a small filling defect close to the left UVJ from known distal ureteral stone. FL/FL guidance in OR IMPRESSION: Small filling defect consistent with stone close to left UVJ. Mild irregularity along the left distal ureter lateral wall, likely spasm.
[2021-01-03 10:22] LABS: Glucose, Whole Blood 165 mg/dL (60-115)
[2021-01-03] MEDS: levoFLOXacin 500 MG TABLET PO (10:41)
[2021-01-03] MEDS: Lactated Ringers 1,000 ML 100 ML IVCONT (10:42)
--- NOTE | 2021-01-03 11:16 | HO.ANESPROP2 ---
[facility] Active Problems Active Problems: All Active Problems (Updated 12/27/20 @ 15:16 by Catalina Tavares MD) Nephrolithiasis (Acute) UTI (urinary tract infection) (Acute) Hematuria (Acute) Flank pain, acute (Acute) Osteoarthritis of left knee (Acute) Diabetes mellitus with hyperglycemia, without long-term current use of insulin (Acute) Surgical menopause (Acute) Dyslipidemia (Acute) Essential hypertension (Acute) Past Medical History Medical History Diabetes mellitus with hyperglycemia, without long-term current use of insulin Dyslipidemia Essential hypertension Nephrolithiasis Osteoarthritis of left knee Surgical menopause Uterine fibroid Family History Family History Father Diabetes Hypertension Pacemaker Stroke Mother No problems noted. Brother Diabetes Heart disease Brother No problems noted. Sister Family hx-anemia Surgical History Surgical History History of partial hysterectomy Social History Social History Alcohol intake: never Smoking Status: Never smoker Use of substances other than those prescribed or required for medical reasons: No Advance Directives: No Advance Directives Information Provided: Yes Meds Allergies Allergy/AdvReac Type Severity Reaction Status Date / Time No Known Allergies Allergy Verified 01/03/21 10:17 Active Medications: Current Medications Generic Name Dose Route Start Last Admin Trade Name Freq PRN Reason Stop Dose Admin Lactated Ringer's 1,000 mls @ 100 mls/hr 01/03/21 10:15 01/03/21 10:42 Lr IVCONT 100 mls/hr .Q10H ALLISON Administration Home Medications Medication Instructions Recorded Confirmed Last Taken Type biotin 10,000 mcg capsule mcg PO 09/17/20 12/31/20 Unknown History cholecalciferol (vitamin D3) 50 50 mcg PO DAILY 09/17/20 12/31/20 Unknown History mcg (2,000 unit) capsule chromium picolinate 400 mcg tablet 800 mcg PO DAILY 09/17/20 12/31/20 Unknown History cinnamon bark 500 mg capsule 1,000 mg PO DAILY 09/17/20 12/31/20 Unknown History flu vac qs 2019(4 yr up)CD(PF) ml IM 09/17/20 12/31/20 Unknown History multivit,mineral-folic acid 800 tab PO 09/17/20 12/31/20 Unknown History mcg-vit K 100 mcg-herbal no.289 tablet pravastatin 80 mg tablet 80 mg PO DAILY 09/17/20 12/31/20 Unknown History Exam Exam Date and Time: January 03, 2021 1116 Height,Weight and Vital Signs: Height 4 ft 11 in Weight 63.957 kg Last Vital Signs Temp 97.0 F 01/03/21 10:27 Pulse 90 01/03/21 10:27 Resp 18 01/03/21 10:27 BP 153/90 H 01/03/21 10:27 Pulse Ox 98 01/03/21 10:27 Pertinent Lab Results Pertinent Lab Results: Laboratory Tests 01/03/21 10:17 POC Glucose 165 H Airway Mallampati Class: II TM Dist: >3cm Neck ROM: Full Loose/Missing/Broken Teeth: No Heart: RRR Lungs: CTA Assessment and Plan Assessment Anesthesia Assessment: Anesthesia Plan Discussed and Chart Reviewed Final Anesthetic Review NPO: Yes ASA Class: II Final Preanesthetic Review: Meds/Allgs Chart Reviewed, Consent Obtained/Reviewed and Anes Risks/Benef Reviewed Patient Risk: Low Procedure Risk: Low Anesthetic Plan Anesthetic Plan: GA Disposition: Standard PACU
--- NOTE | 2021-01-03 11:31 | MHC.SHP ---
Pre-Procedural Eval Section A The patient is an INPATIENT: No Changes since office visit: No Cold of Flu in the past 2 weeks, No New Medical Problems, No Changes in Medication and No Patient answered all questions The History & Physical has been completed within 30 days and I have reviewed it.: Yes Section B Chief Complaint: kidney stone Allergies: Allergies Allergy/AdvReac Type Severity Reaction Status Date / Time No Known Allergies Allergy Verified 01/03/21 10:17 Plan Diagnosis/Plan: Unchanged I have reviewed the history and physical and performed a pertinent physical examination on my patient. No changes have occurred unless specified. Cystoscopy, left retrograde, left ureteroscopy laser lithotripsy stent placement
--- NOTE | 2021-01-03 12:23 | PM.OP ---
Brief Operative Note Date of Service: 01/03/21 Pre-op diagnosis: Distal left ureteric stone Post-op diagnosis: same Procedure: 1. Cystoscopy left retrograde 2. rigid ureteroscopy laser lithotripsy 3. Left stent placement Implants: Left 6 [place] by 22 cm double-J stent Surgeon: Case Castillo MD Anesthesia: GLMA Estimated blood loss (mL): 0 Pathology: none sent Condition: stable Disposition: same day
--- NOTE | 2021-01-03 12:24 | P.OP_ITS ---
Operative Note Operative Note Date of Service: 01/03/21 Narrative: PreOperative Diagnosis: Left distal ureteric stone Post Operative Diagnosis: Left distal ureteric stone Procedure: - cystoscopy, left retrograde - ureteroscopy, laser lithotripsy - stent placement Surgeon: Dr Case Castillo Anesthesia: General Indications for procedure: This is a 55-year-old female. Persistent pain on her left side for a month. Interval imaging showed persistent 6 mm distal left ureteric stone. Recommended intervention with ureteroscopy laser lithotripsy. She is aware the risks and benefits. Procedure: After informed consent was verified patient was brought to the operating placed in supine position. Anesthesia was administered per protocol. Patient was placed in modified dorsal lithotomy position and prepped and draped in a sterile fashion. Safety pause time-out and side of surgery confirmed. Antibiotics confirmed. At a 22 Vietnamese cystoscope was placed per urethra. No abnormality seen of the bladder. You could see bunching of the tissue at the left distal ureteric orifice. This seemed to be consistent with a stone that was distal and causing inflammation. Retrograde examination was performed. Filling defects seen within the left distal ureter. Sensor guidewire placed without difficulty. The cystoscope was removed. A rigid ureterscope was passed alongside the wire and the stone was encountered. Using a 360 micron fiber the stone was broken into small pieces. There was not enough debris to basket. The ureter was examined up to the mid point and no other stones were seen. The rigid scope was removed. A 6 Vietnamese by 22 cm double-J stent was placed without difficulty. She tolerated procedure well was extubated in operating room and transferred in stable condition to the recovery area Pathology: Stones Drains: 6 Vietnamese by 22 cm double-J stent
[2021-01-03] MEDS: Acetaminophen 325 MG TABLET 650 MG PO (12:58)
[2021-01-03] MEDS: Phenazopyridine HCL 100 MG TABLET PO (12:59)
== END 2021-01-03 13:43 | disposition home or self-care (01) ==
PROVIDERS: PCP Internal Medicine; Visit Provider Urology
PROC: (CPT 52356; principal; 2021-01-03 12:00)
DX: N20.1 Calculus of ureter (principal); Z87.442 Personal history of urinary calculi; I10 Essential (primary) hypertension; E11.65 Type 2 diabetes mellitus with hyperglycemia; Z79.84 Long term (current) use of oral hypoglycemic drugs; Z79.899 Other long term (current) drug therapy
CPT/HCPCS: 52356; 82947; C1769; C2617; J1100; J1885; J2250; J2405; J3010; Q9967

== ENCOUNTER → 2021-01-12 14:42 | Outpatient (BNVA) | payer BC, SELFPAY | PROVIDERS: PCP Internal Medicine; Visit Provider Urology | DX: Z46.6 Encounter for fitting and adjustment of urinary device (principal) | CPT/HCPCS: 52310; 81002 ==

== ENCOUNTER 2021-01-13 | Outpatient (REF) | payer BC, SELFPAY | END 2021-01-13 00:01 | disposition home or self-care (01) | LOC: HO.LNP | PROVIDERS: Visit Provider Urology | DX: Z46.6 Encounter for fitting and adjustment of urinary device (principal); N39.0 Urinary tract infection, site not specified | CPT/HCPCS: 87086 ==

== ENCOUNTER 2021-02-03 07:52 | Outpatient (REF) | payer BC, SELFPAY ==
--- NOTE | ~2021-02-03 | US_ITS ---
EXAMINATION: US RETROPERITONEAL LIMITED (RENAL ONLY) CLINICAL INFORMATION: Calculus of kidney. COMPARISON: CT abdomen and pelvis 12/24/2020. Renal ultrasound 10/07/2020. KUB 04/30/2012. TECHNIQUE: Real-time imaging of the kidneys. FINDINGS: RIGHT KIDNEY: 11.8 x 5.4 x 4.6 cm (SAG x AP x TRV). The kidney is normal in size, contour, and echogenicity. Renal cortical thickness is normal. No calculi or focal parenchymal lesions. No hydronephrosis. LEFT KIDNEY: 11.8 x 5.5 x 5.0 cm (SAG x AP x TRV). The kidney is normal in size, contour, and echogenicity. Renal cortical thickness is normal. No calculi or focal parenchymal lesions. No hydronephrosis. US/US renal BI IMPRESSION: Normal appearance of the kidneys. No residual hydronephrosis. No renal calculi are visualized..
== END 2021-02-03 07:53 | disposition home or self-care (01) ==
LOC: HO.US 07:52
PROVIDERS: Visit Provider Urology
DX: N20.0 Calculus of kidney (principal)
CPT/HCPCS: 76775

== ENCOUNTER 2021-04-13 07:45 | Outpatient (REF) | payer BC, SELFPAY ==
[2021-04-13 11:37] LABS: Estimated Average Glucose 169 mg/dL; Hemoglobin A1c % 7.5 %
[2021-04-13 12:21] LABS: Alanine Aminotransferase 11 U/L (0-31); Anion Gap 14 (12-20); Aspartate Amino Transferase 15 U/L (5-31); Blood Urea Nitrogen 20 mg/dL (9-16); Calcium 9.3 mg/dL (8.4-10.2); Carbon Dioxide 27 mmol/L (22-29); Chloride 105 mmol/L (96-108); Cholesterol 164 mg/dL; Estimated Glomerular Filt Rate > 60; Glucose Fasting 160 mg/dL (60-99); HDL Cholesterol 37 mg/dL; LDL Cholesterol Calculated 86 mg/dl; Potassium 4.5 mmol/L (3.3-5.1); Sodium 141 mmol/L (135-145); Triglycerides 208 mg/dL
== END 2021-04-13 07:46 | disposition home or self-care (01) ==
LOC: HO.HMGCLDS 07:45
PROVIDERS: PCP Internal Medicine; Visit Provider Internal Medicine
DX: E11.65 Type 2 diabetes mellitus with hyperglycemia (principal); E78.5 Hyperlipidemia, unspecified; I10 Essential (primary) hypertension
CPT/HCPCS: 36415; 80048; 80061; 83036; 84450; 84460

== ENCOUNTER → 2021-12-13 10:15 | Outpatient (BNVA) | payer BC, SELFPAY | PROVIDERS: PCP Internal Medicine ==

== ENCOUNTER 2022-01-04 14:57 | Outpatient (REF) | payer BC, SELFPAY ==
--- NOTE | ~2022-01-04 | MM_ITS ---
EXAMINATION: MM SCREENING DIGITAL BREAST TOMOSYNTHESIS, BILATERAL CLINICAL INFORMATION: Screening. Asymptomatic. The lifetime risk of breast cancer based on the Tyrer-Cuzick Model is 5%. COMPARISON: Mammography: 12/22/2020, 11/19/2019, 11/13/2018, 10/18/2017 TECHNIQUE: Digital breast tomosynthesis is performed in both the craniocaudal and mediolateral oblique views along with computer-aided detection (CAD). Synthesized 2D images are generated from the tomosynthesis. FINDINGS: There are scattered areas of fibroglandular density (ACR BI-RADS breast composition Category b). There are no significant masses, abnormal calcifications, or other abnormalities. Parenchymal pattern is similar to prior studies. There is no developing density or architectural abnormality. The axilla and skin contours are unremarkable. No significant changes. MM/MM tomosynthesis screening BI IMPRESSION: No mammographic evidence of malignancy. ASSESSMENT: BI-RADS 1: Negative RECOMMENDATION: Routine annual mammography screening. This patient's information was entered into a reminder system with a target due date for their next mammogram.
== END 2022-01-04 14:58 | disposition home or self-care (01) ==
LOC: HO.MAMMO 14:57
PROVIDERS: PCP Internal Medicine; Visit Provider Internal Medicine
DX: Z12.31 Encounter for screening mammogram for malignant neoplasm of breast (principal)
CPT/HCPCS: 77063; 77067

== ENCOUNTER 2022-04-23 09:58 | Emergency (ER) | payer BC, SELFPAY ==
[2022-04-23 10:17] VITALS: BP 166/86; PULSE 90; RESP 18; TEMP 36.6; O2SAT 98; BMI 29.2
--- NOTE | 2022-04-23 11:22 | ED.EAR ---
HPI - Ear Problem General Chief complaint: Ear Problems Stated complaint: possible ear infection Time Seen by Provider: 04/23/22 11:13 Source: patient Mode of arrival: ambulatory History of Present Illness HPI Narrative: 56-year-old female presenting to the ED complaining of right-sided throat pain and swelling radiating to right ear x3 days. Reports pain when swallowing. Denies drainage from ear, hearing loss, fever/chills, inability to swallow, SOB MD Complaint: ear pain Location: right ear Duration: constant Related Data Home Medications Medication Instructions Recorded Confirmed biotin 10,000 mcg capsule mcg PO 09/17/20 04/15/21 cholecalciferol (vitamin D3) 50 50 mcg PO DAILY 09/17/20 04/15/21 mcg (2,000 unit) capsule cinnamon bark 500 mg capsule 1,000 mg PO DAILY 09/17/20 04/15/21 (Cinnamon) flu vac qs 2019(4 yr up)CD(PF) ml IM 09/17/20 04/15/21 multivit,mineral-folic acid 800 tab PO 09/17/20 04/15/21 mcg-vit K 100 mcg-herbal no.289 tablet (Alive Once Daily Women 50 Plus) Previous Rx's Medication Instructions Recorded omeprazole 20 mg capsule,delayed 20 mg PO DAILY 10 days #10 caps 12/24/20 release glipizide 5 mg tablet, extended 10 mg PO BID 90 days #360 tabs 03/25/21 release 24 hr pyridoxine (vitamin B6) 50 mg 50 mg PO DAILY 90 days #90 caps 12/13/21 capsule losartan 50 mg tablet 50 mg PO DAILY #90 tabs 01/03/22 pravastatin 80 mg tablet 80 mg PO DAILY #90 tabs 01/03/22 metformin 1,000 mg tablet 1,000 mg PO BID #180 tabs 02/21/22 empagliflozin 10 mg tablet 10 mg PO QAM #90 tabs 04/04/22 (Jardiance) amoxicillin 875 mg-potassium 1 tab PO BID 7 days #14 tabs 04/23/22 clavulanate 125 mg tablet Allergies Allergy/AdvReac Type Severity Reaction Status Date / Time No Known Allergies Allergy Verified 07/19/21 16:41 Review of Systems Review of Systems: Constitutional: No Fever, No Chills, No Fatigue, No Malaise ENT/Mouth: + Ear Pain, No Nasal Congestion, No Sinus Pain, No Hoarseness, + sore throat, No Rhinorrhea, + pain with Swallowing Eyes: No Eye Pain, No Swelling, No Redness Cardiovascular: No Chest Pain, No SOB, No Dyspnea on Exertion, No Orthopnea, No Edema, No Palpitations Respiratory: No Cough, No Sputum, No Dyspnea Gastrointestinal: No Nausea, No Vomiting, No Diarrhea, No Constipation, No Abdominal pain Musculoskeletal: No joint pain, No Myalgias, No Joint Swelling Skin: No Skin Lesions, No rash Neuro: No Weakness, No Dizziness, No Headache Yes all other systems are reviewed and are negative [facility] Past Medical History Attestation statement: The following information was validated with the patient. Medical History Uterine fibroid Surgical History History of partial hysterectomy Family History Family History Father Diabetes Hypertension Pacemaker Stroke Mother No problems noted. Brother Diabetes Heart disease Brother No problems noted. Sister Family hx-anemia Social History Social History Alcohol intake: never Advance Directives: No Advance Directives Information Provided: No Physical Exam Vital Signs: Vital Signs: Last Vital Signs Temp 98 F 04/23/22 10:17 Pulse 90 04/23/22 10:17 Resp 18 04/23/22 10:17 BP 166/86 H 04/23/22 10:17 Pulse Ox 98 04/23/22 10:17 O2 Del Method 04/23/22 10:17 BMI result Body Mass Index 29.2 Const: General: cooperative, healthy appearing and no acute distress Orientation/consciousness: patient oriented x3 Limitations: no limitations HEENT: Head: Yes normal to inspection and Yes atraumatic Ears: hearing grossly normal bilaterally, external ears normal, mastoids normal and TM abnormal dull on the right General nose exam: Normal external nose present Face and sinus: Yes normal facial exam Mouth: Normal oral and palatal mucosa present, no audible dysphonia and no drooling Teeth and gingiva: dentition normal Throat: Yes posterior oropharynx normal, Yes tonsils normal, No peritonsillar mass and No uvula laterally displaced Eyes: General: appearance normal, both eyes and all related structures EOM: EOMs intact bilaterally Neck: Other: + right-sided submandibular lymphadenopathy with mild tenderness to palpation. No erythema/fluctuance or induration Neck: Yes supple and No anterior neck swelling Resp: Effort & Inspection: normal respiratory effort, not labored, no respiratory distress and no stridor Auscultation: clear to auscultation bilaterally and no crackles Cardio: Rate: regular rate Heart sounds: S1 normal heart sound present and S2 normal heart sound present Skin: Rashes: no rashes Wounds: no wounds Neuro: General: patient oriented x3 and tone normal Gait exam (Neuro): Normal gait present Extrem: General: Yes normal to inspection MDM - Ear MDM Narrative Medical decision making narrative: 56-year-old female presenting to the ED complaining of right-sided throat pain and swelling radiating to right ear x3 days. On exam vital signs stable, NAD/nontoxic appearing, physical exam as above with appreciable unilateral lymphadenopathy. Oropharynx WNL, no evidence of TRAVELING ENGINEER or mastoiditis Plan: Antibiotics, PCP follow-up Medical Records Attestation: I reviewed the patient's medical records. Lab Data Attestation: I reviewed the patient's lab results. Discharge Plan Discharge Clinical Impression: Lymphadenopathy Patient Disposition: Home, Self-Care Instructions: Lymphadenopathy (ED) Additional Instructions: you have one sided inflamed lymph nodes Take Tylenol and Motrin for pain and swelling Augmentin is an antibiotic please take as prescribed. If area becomes more swollen, painful, you have difficulty or inability to swallow or developed fever please return to the emergency department Prescriptions: New amoxicillin-pot clavulanate 875-125 mg tablet 1 tab PO BID 7 Days Qty: 14 0RF No Action glipizide 5 mg tablet extended release 24hr 10 mg PO BID 90 Days Qty: 360 3RF pravastatin 80 mg tablet 80 mg PO DAILY Qty: 90 3RF losartan 50 mg tablet 50 mg PO DAILY Qty: 90 3RF metformin 1,000 mg tablet 1,000 mg PO BID Qty: 180 0RF Rx Instructions: Please call to schedule PCP appt for more refills Jardiance 10 mg tablet 10 mg PO QAM Qty: 90 1RF omeprazole 20 mg capsule,delayed release(DR/EC) 20 mg PO DAILY 10 Days Qty: 10 0RF flu vac qs 2020(4 yr up)CD(PF) 60 mcg (15 mcg x 4)/0.5 mL syringe IM Alive Once Daily Women 50 Plus 800-100 mcg tablet PO cholecalciferol (vitamin D3) 50 mcg (2,000 unit) capsule 50 mcg PO DAILY biotin 10,000 mcg capsule PO cinnamon bark [Cinnamon] 500 mg capsule 1,000 mg PO DAILY pyridoxine (vitamin B6) 50 mg capsule 50 mg PO DAILY 90 Days Qty: 90 0RF Referrals: Catalina Tavares MD [Primary Care Provider] - 3 days
== END 2022-04-23 11:37 | disposition home or self-care (01) ==
PROVIDERS: Emergency Provider Emergency Medicine Emergency Medical Services; PCP Internal Medicine
DX: H92.01 Otalgia, right ear (principal); R59.0 Localized enlarged lymph nodes
CPT/HCPCS: 99282

== ENCOUNTER 2022-05-15 08:21 | Outpatient (REF) | payer BC, SELFPAY ==
[2022-05-15 08:47] LABS: COVID-19 Test Positive (Negative); IDNOW Serial# 16C4AD1C
== END 2022-05-15 08:22 | disposition home or self-care (01) ==
LOC: HO.LAB 08:21
PROVIDERS: Visit Provider Internal Medicine
DX: Z20.822 Contact with and (suspected) exposure to COVID-19 (principal)
CPT/HCPCS: 87635; C9803

== ENCOUNTER 2022-07-26 07:49 | Outpatient (REF) | payer BC, SELFPAY ==
[2022-07-26 11:31] LABS: Estimated Average Glucose 160 mg/dL; Hemoglobin A1c % 7.2 %
[2022-07-26 11:56] LABS: Creatinine Urine 138.27 mg/dL; Microalbum/Creatinine Ratio Ur 8.6 ug/mg cr
[2022-07-26 11:57] LABS: Alanine Aminotransferase 17 U/L (0-31); Albumin Level 4.2 g/dL (3.5-5.0); Alkaline Phosphatase 71 U/L (39-117); Anion Gap 17 (12-20); Aspartate Amino Transferase 18 U/L (5-31); Bilirubin Total 0.5 mg/dL (0.0-1.0); Blood Urea Nitrogen 15 mg/dL (9-16); Carbon Dioxide 23 mmol/L (22-29); Chloride 105 mmol/L (96-108); Cholesterol 164 mg/dL; Estimated Glomerular Filt Rate > 60; Glucose Fasting 176 mg/dL (60-99); HDL Cholesterol 37 mg/dL; LDL Cholesterol Calculated 90 mg/dl; Potassium 4.8 mmol/L (3.3-5.1); Sodium 140 mmol/L (135-145); Total Protein 6.6 g/dL (6.5-8.0); Triglycerides 185 mg/dL
[2022-07-26 12:01] LABS: Vitamin D 25-OH Total 50.2 ng/mL (>30)
== END 2022-07-26 07:50 | disposition home or self-care (01) ==
LOC: HO.HMGCLDS 07:49
PROVIDERS: PCP Internal Medicine; Visit Provider Internal Medicine
DX: E78.5 Hyperlipidemia, unspecified (principal); E89.40 Asymptomatic postprocedural ovarian failure; I10 Essential (primary) hypertension; E11.65 Type 2 diabetes mellitus with hyperglycemia
CPT/HCPCS: 36415; 80053; 80061; 82043; 82306; 83036

== ENCOUNTER 2022-10-23 07:48 | Outpatient (REF) | payer BC, SELFPAY ==
[2022-10-23 11:43] LABS: Estimated Average Glucose 166 mg/dL; Hemoglobin A1c % 7.4 %
[2022-10-23 12:44] LABS: Alanine Aminotransferase 15 U/L (0-31); Aspartate Amino Transferase 15 U/L (5-31); Cholesterol 159 mg/dL; HDL Cholesterol 39 mg/dL; LDL Cholesterol Calculated 84 mg/dl; Triglycerides 184 mg/dL
== END 2022-10-23 07:49 | disposition home or self-care (01) ==
LOC: HO.HMGCLDS 07:48
PROVIDERS: PCP Internal Medicine; Visit Provider Internal Medicine
DX: E11.65 Type 2 diabetes mellitus with hyperglycemia (principal); E78.5 Hyperlipidemia, unspecified; I10 Essential (primary) hypertension
CPT/HCPCS: 36415; 80061; 83036; 84450; 84460

== ENCOUNTER 2022-11-14 12:21 | Outpatient (AMB) | payer BC, SELFPAY ==
--- OUTSIDE RECORDS SUMMARY | 2022-11-14 12:22 | XMS_ITS ---
:1965 Author Care Team Providers Name Role Phone Nara Berrios Primary Care Provider Unavailable Allergies Code Code System Name Reaction Severity Status Onset NKDA ? Medications Name Status Start Date Stop Date ? ? Afluria Qd (36 mos up)(PF)60 mcg (15 mcg x4)/0.5 Active ? Not available mL IM syringe glipizide ER 5 mg tablet, extended release 24 hr Active ? Not available losartan 25 mg tablet Active ? Not availa ble metformin 1,000 mg tablet Active ? Not av ailable metformin 500 mg tablet Completed ? 12/10/19 20 multivitamin Active ? Not available naproxen 500 mg tablet Active ? Not avail able pravastatin 80 mg tablet Active ? Not catrina ilable prednisone 20 mg tablet Completed ? 06/10/20 19 Vitamin D3 50 mcg (2,000 unit) capsule Active ? Not available Take 1 capsule every day by oral route. Problems Name Status Onset Date Source ? Pre-existing Type 2 Diabetes Mellitus Active 06/24/2018 ? Hypercholesterolemia Active 06/24/2018 ? Essential Hypertension Active 06/24/2018 ? Type 2 Diabetes Mellitus Active 06/10/2019 ? Procedures Date Name Performed by ? 10/11/2017 Mammogram, Screening Information not catrina ilable 12/10/2019 XR, Knee [facility] (Imag ing) [place] [address] (Work Place) Results Lab Results Date Name Specimen Result Interpretation Description Value Range Status Address ? 12/10/2019 HbA1C (Hemoglobin ? No observation ? ? ? [facility] a1C), Blood recorded. [facility] : Sudarshan Ordonez 08/13/2019 HbA1C (Hemoglobin ? A1C 7.5 ? ? a1C), Blood 08/12/2019 CMP, Serum or ? No observation ? ? ? [facility] Plasma recorded. [facility] : [address] Sudarshan Kaufman 08/12/2019 LDL, Serum ? Ldl 70 ? ? 08/12/2019 Microalbumin, ? No observation ? ? ? [facility] Urine recorded. [facility] : [address], [place] 08/12/2019 Lipid Panel, Blood ? No observation ? ? ? [facility] recorded. [facility] : [address], [place] 08/12/2019 HbA1C (Hemoglobin ? No observation ? ? ? [facility] a1C), Blood recorded. [facility] : [address], [place] 08/12/2019 CMP, Serum or ? No observation ? ? ? [facility] Plasma recorded. [facility] : [address], [place] Past Encounters None recorded. Social History Tobacco Smoking Status Never Smoker Vaccine List Vaccine Type influenza, injectable, quadrivalent 08/17/2020 Plan of Care Reminders Provider Appointments None recorded. ? ? Lab None recorded. ? ? Referral None recorded. ? ? Procedures None recorded. ? ? Surgeries None recorded. ? ? Imaging None recorded. ? ? Vitals 12/10/2019 09:15AM FOLLOW UP 15 Height Weight BMI Blood Pressure 4 ft 11 in 146.2 lbs 29.5 kg/m2 144/82 mm[Hg] 06/10/2019 01:45PM FOLLOW UP 15 Height Weight BMI Blood Pressure 4 ft 11 in 146.9 lbs 29.7 kg/m2 132/70 mm[Hg] 07/29/2018 01:30PM SDV Height Weight BMI Blood Pressure 4 ft 11 in 147 lbs 29.7 kg/m2 130/70 mm[Hg] 07/12/2018 11:45AM FOLLOW UP 15 Height Weight BMI Blood Pressure 4 ft 11 in 145.6 lbs 29.4 kg/m2 130/74 mm[Hg]
--- NOTE | 2022-11-14 12:33 | MHC.PC.OV ---
Vital Signs 11/14/22 12:34 Height 4 ft 11 in Weight 143 lb BMI 28.8 BP 140/64 H Blood Pressure Location Rt brachial Position Sitting Pulse 89 Pulse Source Pulse Oximeter Pulse Oximetry (%) 96 Oxygen Delivery Method Room Air Intake Visit Reasons: discuss lab results Intake Note: Pt is here today to discuss recent lab results Allergies No Known Allergies Allergy (Verified 12/28/23 00:41) Medication List - Last Reconciled 11/14/22 by Catalina Tavares MD biotin mcg PO cholecalciferol (vitamin D3) 50 mcg PO DAILY cinnamon bark (Cinnamon) 1,000 mg PO DAILY empagliflozin (Jardiance) 10 mg PO QAM flu vac qs 2019(4 yr up)CD(PF) mL IM glipizide ER 10 mg (2 x 5 mg) PO BID 90 days losartan 50 mg PO DAILY metformin 1,000 mg PO BID mv-mn-folic ac-vit K-herb 289 800-100 mcg (Alive Once Daily Women 50 Plus) tabs PO omeprazole 20 mg PO DAILY 10 days pravastatin 80 mg PO DAILY Tobacco use date assessed: 11/14/22 HPI discuss lab results HPI Details 58-year-old lady with diabetes mellitus, hypertension, and dyslipidemia, here today for her follow-up. She has been compliant with taking medications but admits to had following her diet and has not been getting any regular exercise. Recent fasting labs done showed higher hemoglobin A1c as compared to last check now at 7.4%, lipids however showed LDL cholesterol at goal of less than 100 mg/dL. Blood pressure today is also not at goal of less than 130/90. Otherwise has been feeling well, with no new complaints at present time [facility] Medical History Dermatochalasis of both eyelids Diabetes mellitus, without long-term current use of insulin Hx of acute otitis media Nephrolithiasis Osteoarthritis of left knee Diabetes mellitus with hyperglycemia, without long-term current use of insulin Uterine fibroid Surgical menopause Dyslipidemia Essential hypertension Surgical History History of partial hysterectomy Family History Father Diabetes Hypertension Pacemaker Stroke Mother No problems noted. Brother Diabetes Heart disease Brother Mental health disorder Sister Family hx-anemia Maternal Uncle Substance use disorder Social History Housing: House Alcohol intake: never Comment: medicated, see MAR Patient Tobacco Use Status: Never used Tobacco e-Cigarette/Vaping Use: Never Used service: No Current occupational status: employed Cognitive needs: No Hearing needs: No Vision needs: Yes Questionnaire PHQ-9 Over the last 2 weeks, how often have you been bothered by any of the following problems? Depression Screening Interpretation: Negative Source: Developed by Drs. Nael Antonio, Zeina Jaime, Willam Ochoa and colleagues, with an educational maría elena from [employer]. Thrive Questionnaire Date Thrive assessed: 05/04/22 ALMITA-7 AMB Questionnaire ALMITA-7 Date ALMITA - 7 assessed: 05/04/22 Source: Developed by Drs. Nael Antonio, Zeina Jaime, Willam Ochoa and colleagues, with an educational maría elena from [employer]. Review of Systems Const Denies fatigue, Denies fever(s), Denies headache(s) and Denies malaise Eyes Details: goes to Dr Jean for her eye exam Denies change in vision ENT Denies dizziness, Denies headache(s) and Denies nasal congestion Card Reports no additional complaints Resp Reports no additional complaints GI Reports no additional complaints Reports no additional complaints Musc Reports no additional complaints and Denies tingling Neuro Denies dizziness, Denies headache(s), Denies tingling and Denies paresthesias Endo Denies fatigue, Denies polyphagia, Denies polydipsia and Denies polyuria Bro/Lymph Reports no additional complaints Physical exam (Primary Care) Vital Signs: Last Vital Signs Pulse 89 11/14/22 12:34 BP 140/64 H 11/14/22 12:34 Pulse Ox 96 11/14/22 12:34 Oxygen Delivery Method Room Air 11/14/22 12:34 BMI result Body Mass Index 28.8 Tobacco/Smoking Status: Tobacco use Status Tobacco use date assessed 11/14/22 11/14/22 12:41 Patient Tobacco Use Status Never used Tobacco 11/14/22 12:41 e-Cigarette/Vaping Use Never Used 11/14/22 12:41 Depression Screening Interpretation: Negative Thrive Assessment: Date of Thrive Assessment Date Thrive assessed 05/04/22 11/14/22 12:41 Const Other: Alert oriented x3, no acute distress noted ambulatory normal gait Orientation/consciousness: patient oriented x3 [facility] General nose exam: Normal external nose present Face and sinus: Yes face symmetric Mouth: Normal oral and palatal mucosa present, oropharynx normal and moist mucous membranes Eyes General: appearance normal, both eyes and all related structures Neck Neck: Yes no lymphadenopathy and Yes supple Thyroid: Thyroid normal Resp Auscultation: clear to auscultation bilaterally GI Palpation (GI): Soft to palpation, nontender, no guarding and no masses General: Yes no CVA tenderness Back/Spine/Pelvis Back: no CVA tenderness and No back tenderness Skin General skin exam: no rashes or lesions noted Neuro General: patient oriented x3, gait normal, moves all extremities, Normal light touch and pain sensation, no focal motor deficits, CN's II-XI intact bilaterally and normal sensation to monofilament Extrem General: Yes full ROM, Yes no joint enlargement, Yes no pedal edema and Yes normal gait Immunizations pneumoc 20-kevin conj-dip cr(PF) 0.5 mL IM syringe Performing Provider: Catalina Tavares MD Performing Location: [facility] Administered by: Vickie Flores CMA on 11/14/22 13:13 Dose Route Admin Location Dispensed Lot Number Expiration Date NDC Fire Extinguisher [employer] 0.5 mL IM Right Deltoid 0.5 mL [id number] 02/03/24 [id number] [employer] VIS Given Date VIS Provided VIS Publication Date 11/14/22 Single Vaccine 21 Eligibility Eligibility Date Funding Source Not [facility] Eligible 11/14/22 Private Results Reviewed Results Reviewed: Laboratory Tests 06/12/23 10/06/23 07:36 08:00 Estimat Average Glucose 154 166 Hemoglobin A1c % 7.0 7.4 H Name: Mayte Flanagan Age/Sex: 58/F : 1965 Unit#: [id number] Attend Dr: Catalina Tavares MD Re10/06/23 Status: DEP REF Location: [facility] Disch: SPEC : [id number] TERRANCE: 10/06/23 STATUS: COMP REQ : [id number] RECD: 10/06/[address] [facility] DR: Catalina Tavares MD COMP: 10/06/23 ENTERED: 10/06/23 [facility] DR: ORDERED: Met Prof Fast, AST, ALT, Lipid Panel, Vitamin D 25-OH Test Result Flag Reference Sodium 142 135-145 mmol/L Potassium 5.3 # H 3.3-5.1 mmol/L CL 106 96-108 mmol/L CO2 28 22-29 mmol/L Gap 13 12-20 BUN 13 9-16 mg/dL Creat 0.73 0.5-1.4 mg/dL EGFR > 60 NOTE: For -[place] individuals, multiply the result by 1.210. Chronic Kidney Disease: Estimated GFR < 60 mL/min/1.73m2 Severe Kidney Disease: Estimated GFR < 15 mL/min/1.73m2 FBS 164 H 60-99 mg/dL A fasting glucose of 126 mg/dl or greater on more than one occasion is considered diagnostic of diabetes. CA 9.5 8.4-10.2 mg/dL AST (GOT) 17 5-31 U/L ALT (GPT) 17 0-31 U/L Triglyceride 175 H <150 mg/dL Desirable Triglyceride: less than 150 mg/dL Borderline High Triglyceride 150-199 mg/dL High Triglyceride: 200-499 mg/dL Very High Triglyceride: greater than or equal to 5OO mg/dL Cholesterol 154 <200 mg/dL Desirable Cholesterol: less than 200 mg/dL Borderline High Cholesterol: 200-239 mg/dL High Cholesterol: greater than 239 mg/dL LDL Calculated 82 <100 mg/dL Desirable LDL: less than 100 mg/dL Near Optimal/Above Optimal LDL: 110-129 mg/dL Borderline High LDL: 130-159 mg/dL High LDL: 160-189 mg/dL Very High LDL: greater than or equal to 190 mg/dL HDL 37 L >40 mg/dL Desirable HDL: greater than 40 mg/dL Note: This HDL assay may give artificially low results in patients with liver disease. Vit D 25-OH Tot 144.3 >30 ng/mL Health Based Reference Values* < 20 ng/mL Deficient 20-30 ng/mL Insufficient > 30 ng/mL Sufficient Assessment and Plan Assessment & Plan (1) Diabetes mellitus with hyperglycemia, without long-term current use of insulin: Code(s): E11.65 - Type 2 diabetes mellitus with hyperglycemia Plan: Continue with metformin and glipizide, increased dose of empagliflozin to 25 mg daily to be taken once a day in a.m. an hour before breakfast and only with glass of water. Stressed importance of adhering to recommended diet and getting regular exercise. Up-to-date with her diabetes retinopathy screening. Pneumonia vaccine given today (2) Dyslipidemia: Code(s): E78.5 - Hyperlipidemia, unspecified Plan: . Continue with pravastatin 80 mg at bedtime and Johnston 3 fatty acid supplements , in addition to adherence to low-cholesterol diet and regular exercise, at least 30 minutes 3 to 4 times a week. Advised patient to make healthy food choices, eat more fruits, vegetables, whole grains, wild caught fish and low-fat dairy. Limit amount of meat and fried or fatty food products, as well as processed foods and fast foods. Follow-up scheduled with repeat fasting lipid panel in 3 months. (3) Essential hypertension: Code(s): I10 - Essential (primary) hypertension Plan: Blood pressure not at goal of less than 130/80. Continue losartan at 50 mg once a day. Reinforced importance of following a low sodium diet, getting regular exercise, and lowering stress levels. Orders: Orders Pneumococcal 20 Immunization 11/14/22 Z23 - Encounter for immunization Hemoglobin A1c 3 Months E11.65 - Type 2 diabetes mellitus with hyperglycemia, E89.40 - Asymptomatic postprocedural ovarian failure, E78.5 - Hyperlipidemia, unspecified, I10 - Essential (primary) hypertension Alanine Aminotransferase 3 Months E11.65 - Type 2 diabetes mellitus with hyperglycemia, E89.40 - Asymptomatic postprocedural ovarian failure, E78.5 - Hyperlipidemia, unspecified, I10 - Essential (primary) hypertension Aspartate Amino Transferase 3 Months E11.65 - Type 2 diabetes mellitus with hyperglycemia, E89.40 - Asymptomatic postprocedural ovarian failure, E78.5 - Hyperlipidemia, unspecified, I10 - Essential (primary) hypertension Vitamin D 25-OH Total 3 Months E11.65 - Type 2 diabetes mellitus with hyperglycemia, E89.40 - Asymptomatic postprocedural ovarian failure, E78.5 - Hyperlipidemia, unspecified, I10 - Essential (primary) hypertension Lipid Panel 3 Months E11.65 - Type 2 diabetes mellitus with hyperglycemia, E89.40 - Asymptomatic postprocedural ovarian failure, E78.5 - Hyperlipidemia, unspecified, I10 - Essential (primary) hypertension Microalbumin, Random (w Creat) 3 Months E11.65 - Type 2 diabetes mellitus with hyperglycemia, E89.40 - Asymptomatic postprocedural ovarian failure, E78.5 - Hyperlipidemia, unspecified, I10 - Essential (primary) hypertension Basic Metabolic Panel Fasting 3 Months E11.65 - Type 2 diabetes mellitus with hyperglycemia, E89.40 - Asymptomatic postprocedural ovarian failure, E78.5 - Hyperlipidemia, unspecified, I10 - Essential (primary) hypertension Medications: Changed From empagliflozin 10 mg PO QAM 90 tabs 1RF E11.65 - Type 2 diabetes mellitus with hyperglycemia To empagliflozin 25 mg PO QAM 90 tabs 3RF E11.65 - Type 2 diabetes mellitus with hyperglycemia Coding Level of Care Code Est Pt Level 4 (45035) Diagnoses Diabetes mellitus with hyperglycemia, without long-term current use of insulin E11.65 Dyslipidemia E78.5 Essential hypertension I10
[2022-11-14 12:34] VITALS: BP 140/64; PULSE 89; O2SAT 96; BMI 28.8
== END 2022-11-14 13:13 | disposition home or self-care (01) ==
LOC: HO.HMGC 12:21
PROVIDERS: PCP Internal Medicine; Visit Provider Internal Medicine
DX: E11.65 Type 2 diabetes mellitus with hyperglycemia (principal); E78.5 Hyperlipidemia, unspecified; I10 Essential (primary) hypertension
CPT/HCPCS: 99499

== ENCOUNTER 2022-12-06 08:43 | Outpatient (REF) | payer BC, SELFPAY ==
--- NOTE | ~2022-12-06 | US_ITS ---
EXAMINATION: US RETROPERITONEAL LIMITED (RENAL ONLY) CLINICAL INFORMATION: Calculus of kidney. COMPARISON: Ultrasound retroperitoneal limited (renal only) 02/03/2021. CT abdomen and pelvis without contrast 12/24/2020. Ultrasound retroperitoneal limited (renal only) 10/07/2020. TECHNIQUE: Real-time imaging of the kidneys. FINDINGS: RIGHT KIDNEY: 11.4 x 6.2 x 4.8 cm (SAG x AP x TRV). The kidney appears unremarkable in size, contour, and echogenicity. Renal cortical thickness is normal. No calculi or focal parenchymal lesion identified. No evidence of hydronephrosis. LEFT KIDNEY: 12.1 x 5.4 x 4.3 cm (SAG x AP x TRV). The kidney appears unremarkable in size, contour, and echogenicity. Renal cortical thickness is normal. No calculi or focal parenchymal lesion identified. No evidence of hydronephrosis. US/US renal BI IMPRESSION: Unremarkable renal ultrasound examination..
== END 2022-12-06 08:44 | disposition home or self-care (01) ==
LOC: HO.HMGCX 08:43
PROVIDERS: PCP Internal Medicine
DX: N20.0 Calculus of kidney (principal)
CPT/HCPCS: 76775

== ENCOUNTER → 2022-12-14 10:07 | Outpatient (BNVA) | payer BC, SELFPAY | PROVIDERS: PCP Internal Medicine; Visit Provider Nurse Practitioner Family | DX: Z13.89 Encounter for screening for other disorder (principal) ==

== ENCOUNTER 2023-01-13 09:57 | Outpatient (REF) | payer BC, SELFPAY ==
--- NOTE | ~2023-01-13 | MM_ITS ---
EXAMINATION: MM SCREENING DIGITAL BREAST TOMOSYNTHESIS, BILATERAL CLINICAL INFORMATION: Screening. Asymptomatic. The lifetime risk of breast cancer based on the Tyrer-Cuzick Model is 5%. COMPARISON: Mammography: 01/04/2022, 12/22/2020, 11/19/2019 TECHNIQUE: Digital breast tomosynthesis is performed in both the craniocaudal and mediolateral oblique views along with computer-aided detection (CAD). Synthesized 2D images are generated from the tomosynthesis. FINDINGS: There are scattered areas of fibroglandular density (ACR BI-RADS breast composition Category b). There are no significant masses, abnormal calcifications, or other abnormalities. No architectural abnormality or developing density or significant change from prior studies. The axilla are unremarkable. MM/MM tomosynthesis screening BI IMPRESSION: No mammographic evidence of malignancy. ASSESSMENT: BI-RADS 1: Negative RECOMMENDATION: Routine annual mammography screening. This patient's information was entered into a reminder system with a target due date for their next mammogram.
== END 2023-01-13 09:58 | disposition home or self-care (01) ==
LOC: HO.MAMMO 09:57
PROVIDERS: PCP Internal Medicine; Visit Provider Internal Medicine
DX: Z12.31 Encounter for screening mammogram for malignant neoplasm of breast (principal)
CPT/HCPCS: 77063; 77067

== ENCOUNTER 2023-02-09 08:11 | Outpatient (REF) | payer BC, SELFPAY ==
[2023-02-09 12:07] LABS: Estimated Average Glucose 163 mg/dL; Hemoglobin A1c % 7.3 %
[2023-02-09 12:18] LABS: Microalbum/Creatinine Ratio Ur 10.2 ug/mg cr
[2023-02-09 12:31] LABS: Alanine Aminotransferase 18 U/L (0-31); Anion Gap 12 (12-20); Aspartate Amino Transferase 17 U/L (5-31); Blood Urea Nitrogen 15 mg/dL (9-16); Calcium 9.2 mg/dL (8.4-10.2); Carbon Dioxide 27 mmol/L (22-29); Chloride 106 mmol/L (96-108); Cholesterol 173 mg/dL; Estimated Glomerular Filt Rate > 60; Glucose Fasting 157 mg/dL (60-99); HDL Cholesterol 39 mg/dL; LDL Cholesterol Calculated 74 mg/dl; Potassium 4.9 mmol/L (3.3-5.1); Sodium 140 mmol/L (135-145); Triglycerides 303 mg/dL; Vitamin D 25-OH Total 53.2 ng/mL (>30)
== END 2023-02-09 08:12 | disposition home or self-care (01) ==
LOC: HO.HMGCLDS 08:11
PROVIDERS: PCP Internal Medicine; Visit Provider Internal Medicine
DX: E11.65 Type 2 diabetes mellitus with hyperglycemia (principal); E78.5 Hyperlipidemia, unspecified; E89.40 Asymptomatic postprocedural ovarian failure; I10 Essential (primary) hypertension
CPT/HCPCS: 36415; 80048; 80061; 82043; 82306; 83036; 84450; 84460

== ENCOUNTER 2023-06-12 07:23 | Outpatient (REF) | payer BC, SELFPAY ==
[2023-06-12 11:45] LABS: Estimated Average Glucose 154 mg/dL
[2023-06-12 12:46] LABS: Alanine Aminotransferase 17 U/L (0-31); Anion Gap 13 (12-20); Aspartate Amino Transferase 18 U/L (5-31); Blood Urea Nitrogen 14 mg/dL (9-16); Calcium 9.3 mg/dL (8.4-10.2); Carbon Dioxide 27 mmol/L (22-29); Chloride 103 mmol/L (96-108); Cholesterol 172 mg/dL; Estimated Glomerular Filt Rate > 60; Glucose Fasting 170 mg/dL (60-99); HDL Cholesterol 39 mg/dL; LDL Cholesterol Calculated 90 mg/dl; Potassium 4.3 mmol/L (3.3-5.1); Sodium 139 mmol/L (135-145); Triglycerides 218 mg/dL
== END 2023-06-12 07:24 | disposition home or self-care (01) ==
LOC: HO.HMGCLDS 07:23
PROVIDERS: PCP Internal Medicine; Visit Provider Internal Medicine
DX: E11.65 Type 2 diabetes mellitus with hyperglycemia (principal); E78.5 Hyperlipidemia, unspecified; I10 Essential (primary) hypertension
CPT/HCPCS: 36415; 80048; 80061; 83036; 84450; 84460

== ENCOUNTER 2023-06-13 13:11 | Outpatient (AMB) | payer BC, SELFPAY ==
--- NOTE | 2023-06-13 13:24 | A.OFFPC_ITS ---
Vital Signs 06/13/23 13:28 Height 4 ft 11 in Weight 142 lb BMI 28.7 BP 128/60 Blood Pressure Location Lt brachial Position Sitting Pulse 90 Pulse Source Pulse Oximeter Pulse Oximetry (%) 97 Oxygen Delivery Method Room Air Intake Visit Reasons: follow up labs Intake Note: Pt is here today to f/u labs Allergies No Known Allergies Allergy (Verified 06/13/23 13:44) Medication List - Last Reconciled 06/13/23 by Catalina Tavares MD biotin mcg PO cholecalciferol (vitamin D3) 50 mcg PO DAILY cinnamon bark (Cinnamon) 1,000 mg PO DAILY empagliflozin 25 mg PO QAM glipizide ER 10 mg (2 x 5 mg) PO BID 90 days losartan 50 mg PO DAILY metformin 1,000 mg PO BID mv-mn-folic ac-vit K-herb 289 800-100 mcg (Alive Once Daily Women 50 Plus) tabs PO omeprazole 20 mg PO DAILY 10 days pravastatin 80 mg PO DAILY Tobacco use date assessed: 06/13/23 Dental Screening Dental Screen Date: 06/13/23 Did you have a dental visit in the last 12 months?: Yes Did you have a dental problem in the last 6 months where you did not have access to dental care?: No Was dental information given to patient?: Patient has dentist HPI follow up labs HPI Details 57-year-old lady with diabetes mellitus, hypertension, and dyslipidemia, here today for follow-up. She has been compliant with taking her medications, follows recommended diet and has been still walking regularly for exercise. She had recent fasting labs done which showed hemoglobin A1c, lipids within normal limits except for slightly elevated triglycerides . She is up-to-date with her diabetes retinopathy screening, and is up-to-date with all her vaccines except for PFSH Medical History (Updated 06/13/23 @ 13:45 by Catalina Tavares MD) Diabetes mellitus with hyperglycemia, without long-term current use of insulin Diabetes mellitus, without long-term current use of insulin Dyslipidemia Essential hypertension Hx of acute otitis media Nephrolithiasis Osteoarthritis of left knee Surgical menopause Uterine fibroid Surgical History History of partial hysterectomy Family History Father Diabetes Hypertension Pacemaker Stroke Mother No problems noted. Brother Diabetes Heart disease Brother Mental health disorder Sister Family hx-anemia Maternal Uncle Substance use disorder Social History Housing: House Alcohol intake: never Patient Tobacco Use Status: Never used Tobacco e-Cigarette/Vaping Use: Never Used service: No Current occupational status: employed Cognitive needs: No Hearing needs: No Vision needs: No Questionnaire Thrive Questionnaire Date Thrive assessed: 06/13/23 I am a: Patient What is your living situation today?: I have a steady place to live Within the past 12 months, did the food you bought not last and you didn't have the money to get more?: Never true Within the past 12 months, did you worry whether your food would run out before you got money to buy more?: Never true Do you have trouble paying for medicines?: No Do you have trouble getting transportation to medical appointments?: No Do you have trouble paying your heating and electricity bill?: No Do you have trouble taking care of your child, family member or friend?: No Do you have trouble with day-to-day activities such as bathing, preparing meals, shopping, managing finances, etc.?: No Are you currently unemployed and looking for a job?: No Are you interested in more education?: No ALMITA-7 AMB Questionnaire ALMITA-7 Date ALMITA - 7 assessed: 06/13/23 Feeling nervous, anxious, or on edge: 0 = Not at all Not being able to stop or control worryin = Not at all Worrying too much about different things: 0 = Not at all Trouble relaxin = Not at all Being so restless that it is hard to sit still: 0 = Not at all Becoming easily annoyed or irritable: 0 = Not at all Feeling afraid as if something awful might happen: 0 = Not at all Total ALMITA-7 score (0-4 normal; 5-9 mild; 10-14 moderate; 15-21 severe): 0 Source: Developed by Drs. Nael Antonio, Zeina Jaime, Willam Ochoa and colleagues, with an educational maría elena from [employer] ALMITA-7 Assessment Billing ALMITA-7 Assessment Tool: ALMITA-7 Assessment [id number] Review of Systems Const Denies chills, Denies fatigue, Denies fever(s), Denies headache(s) and Denies malaise Eyes Details: goes to Dr Jean for her eye exam Denies change in vision ENT Denies dysphagia, Denies dizziness, Denies headache(s) and Denies nasal congestion Card Reports no additional complaints Resp Reports no additional complaints GI Denies dysphagia Reports no additional complaints Skin/Breast Reports as per HPI Neuro Denies dizziness and Denies headache(s) Psych Reports no additional complaints Endo Denies fatigue Bro/Lymph Reports no additional complaints Physical exam (Primary Care) Vital Signs: Last Vital Signs Pulse 90 06/13/23 13:28 BP 128/60 06/13/23 13:28 Pulse Ox 97 06/13/23 13:28 Oxygen Delivery Method Room Air 06/13/23 13:28 BMI result Body Mass Index 28.7 Tobacco/Smoking Status: Tobacco use Status Tobacco use date assessed 06/13/23 06/13/23 13:30 Patient Tobacco Use Status Never used Tobacco 06/13/23 13:30 e-Cigarette/Vaping Use Never Used 06/13/23 13:30 Thrive Assessment: Date of Thrive Assessment Date Thrive assessed 06/13/23 06/13/23 13:30 Const Other: Alert oriented x3, no acute distress noted ambulatory normal gait Orientation/consciousness: patient oriented x3 HENMT Ears: TM's normal bilaterally and EAC's normal General nose exam: Normal external nose present Face and sinus: Yes face symmetric Mouth: Normal oral and palatal mucosa present, oropharynx normal and moist mucous membranes Eyes General: appearance normal, both eyes and all related structures Neck Neck: Yes no lymphadenopathy and Yes supple Thyroid: Thyroid normal Chest Breast/axilla palpation: normal palpation of the breasts Resp Auscultation: clear to auscultation bilaterally Cardio Other: S1-S2 present regular rate and rhythm GI Palpation (GI): Soft to palpation, nontender, no guarding and no masses General: Yes no CVA tenderness Back/Spine/Pelvis Back: no CVA tenderness and No back tenderness Skin General skin exam: no rashes or lesions noted Neuro General: patient oriented x3, gait normal, moves all extremities, Normal light touch and pain sensation, no focal motor deficits, CN's II-XI intact bilaterally and normal sensation to monofilament Extrem General: Yes full ROM, Yes no joint enlargement, Yes no pedal edema and Yes normal gait Results Reviewed Results Reviewed: ENTERED: 06/12/23 KVNG GRACE: ORDERED: Met Prof Fast, AST, ALT, Lipid Panel Test Result Flag Reference Site Sodium 139 135-145 mmol/L Potassium 4.3 3.3-5.1 mmol/L CL 103 96-108 mmol/L CO2 27 22-29 mmol/L Gap 13 12-20 BUN 14 9-16 mg/dL Creat 0.65 0.5-1.4 mg/dL EGFR > 60 NOTE: For -[place] individuals, multiply the result by 1.210. Chronic Kidney Disease: Estimated GFR < 60 mL/min/1.73m2 Severe Kidney Disease: Estimated GFR < 15 mL/min/1.73m2 FBS 170 H 60-99 mg/dL A fasting glucose of 126 mg/dl or greater on more than one occasion is considered diagnostic of diabetes. CA 9.3 8.4-10.2 mg/dL AST (GOT) 18 5-31 U/L ALT (GPT) 17 0-31 U/L Triglyceride 218 mg/dL Desirable Triglyceride: less than 150 mg/dL Borderline High Triglyceride 150-199 mg/dL High Triglyceride: 200-499 mg/dL Very High Triglyceride: greater than or equal to 5OO mg/dL Chol 172 mg/dL Desirable Cholesterol: less than 200 mg/dL Borderline High Cholesterol: 200-239 mg/dL High Cholesterol: greater than 239 mg/dL LDL Calculated 90 mg/dl Desirable LDL: less than 100 mg/dL Near Optimal/Above Optimal LDL: 110-129 mg/dL Borderline High LDL: 130-159 mg/dL High LDL: 160-189 mg/dL Very High LDL: greater than or equal to 190 mg/dL HDL 39 mg/dL Desirable HDL: greater than 40 mg/dL Assessment and Plan Assessment & Plan (1) Diabetes mellitus, without long-term current use of insulin: Code(s): E11.9 - Type 2 diabetes mellitus without complications Plan: Recent lab results reviewed with patient, with sugar and hemoglobin A1c stable and at goal. Continue taking metformin a 1000 mg twice a day and empagliflozin 25 mg daily in a.m. as well as glipizide ER 10 mg twice a day continue to check fasting blood sugar at home, maintain log and bring to next appointment for review. Reinforced diabetic diet and regular exercise with patient. Counseled regarding importance of yearly diabetes retinopathy screening. Patient advised to inspect feet daily, for any signs of injury, callus or infection. Compliance with diet and regular exercise again stressed. Blood pressure goal is less than 130/80, goal LDL is less than 100 and goal hemoglobin A1c is less than 7% follow-up appointment made in-4--months, after fasting labs done. (2) Dyslipidemia: Code(s): E78.5 - Hyperlipidemia, unspecified Plan: Reviewed recent fasting lipid profile with patient with LDL cholesterol at goal . Continue with pravastatin 80 mg at bedtime , in addition to adherence to low-cholesterol diet and regular exercise, at least 30 minutes 3 to 4 times a week. Advised patient to make healthy food choices, eat more fruits, vegetables, whole grains, wild caught fish and low-fat dairy. Limit amount of meat and fried or fatty food products, as well as processed foods and fast foods. Follow-up scheduled with repeat fasting lipid panel in 4 months. (3) Essential hypertension: Code(s): I10 - Essential (primary) hypertension Plan: Blood pressure at goal of less than 130/80. Continue with current medication. Reinforced importance of following a low sodium diet, getting regular exercise, and lowering stress levels. Orders: Orders Alanine Aminotransferase 10/05/23 E11.9 - Type 2 diabetes mellitus without complications, E78.5 - Hyperlipidemia, unspecified, E89.40 - Asymptomatic postprocedural ovarian failure, I10 - Essential (primary) hypertension Aspartate Amino Transferase 10/05/23 E11.9 - Type 2 diabetes mellitus without complications, E78.5 - Hyperlipidemia, unspecified, E89.40 - Asymptomatic postprocedural ovarian failure, I10 - Essential (primary) hypertension Basic Metabolic Panel Fasting 10/05/23 E11.9 - Type 2 diabetes mellitus without complications, E78.5 - Hyperlipidemia, unspecified, E89.40 - Asymptomatic postprocedural ovarian failure, I10 - Essential (primary) hypertension Hemoglobin A1c 10/05/23 E11.9 - Type 2 diabetes mellitus without complications, E78.5 - Hyperlipidemia, unspecified, E89.40 - Asymptomatic postprocedural ovarian failure, I10 - Essential (primary) hypertension Lipid Panel 10/05/23 E11.9 - Type 2 diabetes mellitus without complications, E78.5 - Hyperlipidemia, unspecified, E89.40 - Asymptomatic postprocedural ovarian failure, I10 - Essential (primary) hypertension Vitamin D 25-OH Total 10/05/23 E11.9 - Type 2 diabetes mellitus without complications, E78.5 - Hyperlipidemia, unspecified, E89.40 - Asymptomatic postprocedural ovarian failure, I10 - Essential (primary) hypertension Coding Level of Care Code Est Pt Level 3 (93861) Diagnoses Diabetes mellitus, without long-term current use of insulin E11.9 Dyslipidemia E78.5 Essential hypertension I10 Additional Codes ALMITA-7 Assessment Billing - ALMITA-7 Assessment Tool: ALMITA-7 Assessment 03710 ([id number])
[2023-06-13 13:28] VITALS: BP 128/60; PULSE 90; O2SAT 97; BMI 28.7
== END 2023-06-13 14:01 | disposition home or self-care (01) ==
PROVIDERS: PCP Internal Medicine; Visit Provider Internal Medicine
DX: E11.9 Type 2 diabetes mellitus without complications (principal); E78.5 Hyperlipidemia, unspecified; I10 Essential (primary) hypertension
CPT/HCPCS: 99213

== ENCOUNTER 2023-10-06 07:55 | Outpatient (REF) | payer BC, SELFPAY ==
[2023-10-06 11:30] LABS: Estimated Average Glucose 166 mg/dL; Hemoglobin A1c % 7.4 % (<6.0)
[2023-10-06 11:38] LABS: Alanine Aminotransferase 17 U/L (0-31); Anion Gap 13 (12-20); Aspartate Amino Transferase 17 U/L (5-31); Blood Urea Nitrogen 13 mg/dL (9-16); Calcium 9.5 mg/dL (8.4-10.2); Carbon Dioxide 28 mmol/L (22-29); Chloride 106 mmol/L (96-108); Cholesterol 154 mg/dL (<200); Estimated Glomerular Filt Rate > 60; Glucose Fasting 164 mg/dL (60-99); HDL Cholesterol 37 mg/dL (>40); LDL Cholesterol Calculated 82 mg/dL (<100); Potassium 5.3 mmol/L (3.3-5.1); Sodium 142 mmol/L (135-145); Triglycerides 175 mg/dL (<150)
[2023-10-06 11:56] LABS: Vitamin D 25-OH Total 144.3 ng/mL (>30)
== END 2023-10-06 07:56 | disposition home or self-care (01) ==
LOC: HO.HMGCLDS 07:55
PROVIDERS: PCP Internal Medicine; Visit Provider Internal Medicine
DX: E11.9 Type 2 diabetes mellitus without complications (principal); I10 Essential (primary) hypertension; E89.40 Asymptomatic postprocedural ovarian failure; E78.5 Hyperlipidemia, unspecified
CPT/HCPCS: 36415; 80048; 80061; 82306; 83036; 84450; 84460

== ENCOUNTER 2023-10-15 09:16 | Outpatient (AMB) | payer BC, SELFPAY ==
[2023-10-15 09:36] VITALS: BP 132/76; PULSE 93; O2SAT 98; BMI 28.3
--- NOTE | 2023-10-15 09:36 | A.OFFPC_ITS ---
Vital Signs 10/15/23 09:36 Height 4 ft 11 in Weight 140 lb BMI 28.3 BP 132/76 Blood Pressure Location Rt brachial Position Sitting Pulse 93 Pulse Source Pulse Oximeter Pulse Oximetry (%) 98 Oxygen Delivery Method Room Air Intake Visit Reasons: Annual PE Intake Note: Pt is here for her Annual PE Allergies No Known Allergies Allergy (Verified 10/15/23 10:04) Medication List - Last Reconciled 10/15/23 by Catalina Tavares MD biotin mcg PO cholecalciferol (vitamin D3) 50 mcg PO DAILY cinnamon bark (Cinnamon) 1,000 mg PO DAILY empagliflozin 25 mg PO QAM glipizide ER 10 mg (2 x 5 mg) PO BID 90 days losartan 50 mg PO DAILY metformin 1,000 mg PO BID mv-mn-folic ac-vit K-herb 289 800-100 mcg (Alive Once Daily Women 50 Plus) tabs PO omega 5-yai-uxh-fish oil 60-90-500 mg (Fish Oil) 1 cap PO DAILY omeprazole 20 mg PO DAILY 10 days pravastatin 80 mg PO DAILY Tobacco use date assessed: 10/15/23 Dental Screening Dental Screen Date: 10/15/23 Did you have a dental visit in the last 12 months?: Yes Did you have a dental problem in the last 6 months where you did not have access to dental care?: No Was dental information given to patient?: Patient has dentist HPI Annual PE HPI0 Details 58-year-old lady here today for her phys ical exam. She is currently up-to-date with her screening mammogram, and colonoscopy done in 2014 due again in 2024. No longer gets cervical cancer screenings due to well partial hysterectomy done in 1999 due to uterine fibroid. She has hypertension hyperlipidemia, and diabetes mellitus. Has been trying to follow recommended diet and has been compliant with her medications. Recent labs however showed hemoglobin A1c still elevated at 7.4%. With fasting lipid panel showing normal LDL cholesterol but mildly elevated triglyceride levels. She has been feeling well, with no complaints at present time. [facility] Medical History Diabetes mellitus, without long-term current use of insulin Hx of acute otitis media Nephrolithiasis Osteoarthritis of left knee Diabetes mellitus with hyperglycemia, without long-term current use of insulin Uterine fibroid Surgical menopause Dyslipidemia Essential hypertension Surgical History History of partial hysterectomy Family History Father Diabetes Hypertension Pacemaker Stroke Mother No problems noted. Brother Diabetes Heart disease Brother Mental health disorder Sister Family hx-anemia Maternal Uncle Substance use disorder Social History Housing: House Alcohol intake: never Comment: medicated, see MAR Patient Tobacco Use Status: Never used Tobacco e-Cigarette/Vaping Use: Never Used service: No Current occupational status: employed Cognitive needs: No Hearing needs: No Vision needs: No Female Reproductive History Menstrual Menopause type: surgical Questionnaire PHQ-9 Over the last 2 weeks, how often have you been bothered by any of the following problems? 1. Little interest or pleasure in doing things: not at all 2. Feeling down, depressed, or hopeless: not at all 3. Trouble falling or staying asleep, or sleeping too much: not at all 4. Feeling tired or having little energy: not at all 5. Poor appetite or overeating: not at all 6. Feeling bad about yourself - or that you are a failure or have let yourself or your family down: several days 7. Trouble concentrating on things, such as reading the newspaper or watching television: not at all 8. Moving or speaking so slowly that other people could have noticed. Or the opposite - being so fidgety or restless that you have been moving around a lot more than usual: not at all 9. Thoughts that you would be better off or of hurting yourself in some way : not at all Total score: 1 Depression Screening Interpretation: Negative Depression Screening Done: Yes 08314 - PHQ-9 Billing: Yes Source: Developed by Drs. Nael Antonio, Zeina Jaime, Willam Ochoa and colleagues, with an educational maría elena from [employer] Thrive Questionnaire Date Thrive assessed: 10/15/23 I am a: Patient What is your living situation today?: I have a steady place to live Within the past 12 months, did the food you bought not last and you didn't have the money to get more?: Never true Within the past 12 months, did you worry whether your food would run out before you got money to buy more?: Never true Do you have trouble paying for medicines?: No Do you have trouble getting transportation to medical appointments?: No Do you have trouble paying your heating and electricity bill?: No Do you have trouble taking care of your child, family member or friend?: Yes Do you have trouble with day-to-day activities such as bathing, preparing meals, shopping, managing finances, etc.?: No Are you currently unemployed and looking for a job?: No Are you interested in more education?: No Please select the resources that you would like help with: Care for elder or disabled AUDIT C Alcohol Use Questionnaire (AUDIT-C) 1. How often do you have a drink containing alcohol?: Monthly or less 2. How many drinks containing alcohol do you have on a typical day when you are drinking?: 1 or 2 3. How often do you have six or more drinks on one occasion?: Never Total Score: 1 ALMITA-7 AMB Questionnaire ALMITA-7 Date ALMITA - 7 assessed: 06/13/23 Feeling nervous, anxious, or on edge: 0 = Not at all Not being able to stop or control worryin = Not at all Worrying too much about different things: 0 = Not at all Trouble relaxin = Not at all Being so restless that it is hard to sit still: 0 = Not at all Becoming easily annoyed or irritable: 0 = Not at all Feeling afraid as if something awful might happen: 0 = Not at all Total ALMITA-7 score (0-4 normal; 5-9 mild; 10-14 moderate; 15-21 severe): 0 Source: Developed by Drs. Nael Antonio, Zeina Jaime, Willam Ochoa and colleagues, with an educational maría elena from [employer] ALMITA-7 Assessment Billing ALMITA-7 Assessment Tool: ALMITA-7 Assessment [id number] Review of Systems Const Denies chills, Denies fatigue, Denies fever(s), Denies headache(s) and Denies malaise Eyes Details: goes to Dr Fu for her diabetes eye exam , UTD with her diabetes retinopathy screening Denies change in vision ENT Denies dysphagia, Denies dizziness, Denies headache(s) and Denies nasal congestion Card Reports no additional complaints Resp Reports no additional complaints GI Denies dysphagia Reports no additional complaints Musc Reports no additional complaints Skin/Breast Details: sees dr quionnes yearly Denies breast pain and Denies breast mass Neuro Denies dizziness and Denies headache(s) Psych Reports no additional complaints Endo Denies fatigue Bro/Lymph Reports no additional complaints Aller/Immun Reports no additional complaints Physical exam (Primary Care) Vital Signs: Last Vital Signs Pulse 93 10/15/23 09:36 BP 132/76 10/15/23 09:36 Pulse Ox 98 10/15/23 09:36 Oxygen Delivery Method Room Air 10/15/23 09:36 BMI result Body Mass Index 28.3 Tobacco/Smoking Status: Tobacco use Status Tobacco use date assessed 10/15/23 10/15/23 09:43 Patient Tobacco Use Status Never used Tobacco 10/15/23 09:36 e-Cigarette/Vaping Use Never Used 10/15/23 09:36 PHQ-9: PHQ-9 Score PHQ-9: Total score 1 12/01/23 22:46 Depression Screening Interpretation: Negative Thrive Assessment: Date of Thrive Assessment Date Thrive assessed 10/15/23 10/15/23 10:19 Const Other: Alert oriented x3, no acute distress noted ambulatory normal gait Orientation/consciousness: patient oriented x3 HENMT Ears: TM's normal bilaterally and EAC's normal General nose exam: Normal external nose present Face and sinus: Yes face symmetric Mouth: Normal oral and palatal mucosa present, oropharynx normal and moist mucous membranes Eyes General: appearance normal, both eyes and all related structures Neck Neck: Yes no lymphadenopathy and Yes supple Thyroid: Thyroid normal Chest Breast/axilla palpation: normal palpation of the breasts Resp Auscultation: clear to auscultation bilaterally Cardio Other: S1-S2 present regular rate and rhythm GI Palpation (GI): Soft to palpation, nontender, no guarding and no masses General: Yes no CVA tenderness Back/Spine/Pelvis Back: no CVA tenderness and No back tenderness Skin General skin exam: no rashes or lesions noted Neuro General: patient oriented x3, gait normal, moves all extremities, Normal light touch and pain sensation, no focal motor deficits, CN's II-XI intact bilaterally and normal sensation to monofilament Extrem General: Yes full ROM, Yes no joint enlargement, Yes no pedal edema and Yes normal gait Psych Appearance: grossly normal and well kempt Mental Status: mental status grossly normal Speech and movement: Normal speech and movement present Affect: normal affect Results Reviewed Results Reviewed: Name: Mayte Flanagan Age/Sex: 58/F : 1965 Unit#: [id number] Attend Dr: Catalina Tavares MD Re10/06/23 Status: DEP [facility] Disch: SPEC : [id number] TERRANCE: 10/06/23 STATUS: COMP REQ : [id number] RECD: 10/06/[address]: Catalina Tavares MD COMP: 10/06/23 ENTERED: 10/06/[address]: ORDERED: Met Prof Fast, AST, ALT, Lipid Panel, Vitamin D 25-OH Test Result Flag Reference Site Sodium 142 135-145 mmol/L Potassium 5.3 # H 3.3-5.1 mmol/L CL 106 96-108 mmol/L CO2 28 22-29 mmol/L Gap 13 12-20 BUN 13 9-16 mg/dL Creat 0.73 0.5-1.4 mg/dL EGFR > 60 NOTE: For -Stateless individuals, multiply the result by 1.210. Chronic Kidney Disease: Estimated GFR < 60 mL/min/1.73m2 Severe Kidney Disease: Estimated GFR < 15 mL/min/1.73m2 FBS 164 H 60-99 mg/dL A fasting glucose of 126 mg/dl or greater on more than one occasion is considered diagnostic of diabetes. CA 9.5 8.4-10.2 mg/dL AST (GOT) 17 5-31 U/L ALT (GPT) 17 0-31 U/L Triglyceride 175 H <150 mg/dL Desirable Triglyceride: less than 150 mg/dL Borderline High Triglyceride 150-199 mg/dL High Triglyceride: 200-499 mg/dL Very High Triglyceride: greater than or equal to 5OO mg/dL Cholesterol 154 <200 mg/dL Desirable Cholesterol: less than 200 mg/dL Borderline High Cholesterol: 200-239 mg/dL High Cholesterol: greater than 239 mg/dL LDL Calculated 82 <100 mg/dL Desirable LDL: less than 100 mg/dL Near Optimal/Above Optimal LDL: 110-129 mg/dL Borderline High LDL: 130-159 mg/dL High LDL: 160-189 mg/dL Very High LDL: greater than or equal to 190 mg/dL HDL 37 L >40 mg/dL Desirable HDL: greater than 40 mg/dL Note: This HDL assay may give artificially low results in patients with liver disease. Vit D 25-OH Tot 144.3 >30 ng/mL Health Based Reference Values* < 20 ng/mL Deficient 20-30 ng/mL Insufficient > 30 ng/mL Sufficient Laboratory Tests 06/12/23 10/06/23 07:36 08:00 Estimat Average Glucose 154 166 Hemoglobin A1c % 7.0 7.4 H Assessment and Plan Assessment & Plan (1) Annual visit for general adult medical examination with abnormal findings: Code(s): Z00.01 - Encounter for general adult medical examination with abnormal findings Plan: Recent fasting lab results reviewed with patient Recommended dental visit every 6 months and regular eye exams, yearly, currently up-to-date.. Take adequate calcium in diet and vitamin-D 3 at 2000 IU per cap once a day, in addition to weight-bearing exercises to help maintain good muscle tone and weight control. Instructed to do self-breast exam, continue with yearly mammogram. Up-to-date with her screening colonoscopy done in 2014, due again in 2024. She is up-to- date with her COVID vaccine including booster, flu vaccine and pneumonia vaccination. (2) Diabetes mellitus with hyperglycemia, without long-term current use of insulin: Code(s): E11.65 - Type 2 diabetes mellitus with hyperglycemia Qualifiers: Diabetes mellitus type: type 2 Qualified Code(s): E11.65 - Type 2 diabetes mellitus with hyperglycemia Plan: Recent lab results reviewed with patient, with sugar and hemoglobin A1c not at goal continued on metformin 1000 mg 1 tablet twice a day and empagliflozin 25 mg 1 tablet in a.m.. Reinforced diabetic diet and regular exercise with patient. She is up-to-date with her yearly diabetes retinopathy screening. Patient advised to inspect feet daily, for any signs of injury, callus or infection. Compliance with diet and regular exercise again stressed. Blood pressure goal is less than 130/80, goal LDL is less than 100 and goal hemoglobin A1c is less than 7% follow-up appointment made in--3-months, after fasting labs done. (3) Essential hypertension: Code(s): I10 - Essential (primary) hypertension Plan: Blood pressure stable controlled on losartan 50 mg daily will continue (4) Dyslipidemia: Code(s): E78.5 - Hyperlipidemia, unspecified Plan: Reviewed recent fasting lipid profile with patient with LDL cholesterol within normal limits but mildly elevated triglycerides and low HDL. Continue with [place] 3 fatty acid supplements pravastatin 80 mg at bedtime.. Reinforced importance of adherence to low-cholesterol diet and regular exercise, at least 30 minutes 3 to 4 times a week. Advised patient to make healthy food choices, eat more fruits, vegetables, whole grains, wild caught fish and low-fat dairy. Limit amount of meat and fried or fatty food products, as well as processed foods and fast foods. Follow-up scheduled with repeat fasting lipid panel in 3 months. Orders: Orders Lipid Panel 01/07/24 E11.9 - Type 2 diabetes mellitus without complications, E11.65 - Type 2 diabetes mellitus with hyperglycemia, I10 - Essential (primary) hypertension, E78.5 - Hyperlipidemia, unspecified, E89.40 - Asymptomatic postprocedural ovarian failure, Z00.01 - Encounter for general adult medical examination with abnormal findings Basic Metabolic Panel Fasting 01/07/24 E11.9 - Type 2 diabetes mellitus without complications, E11.65 - Type 2 diabetes mellitus with hyperglycemia, I10 - Essential (primary) hypertension, E78.5 - Hyperlipidemia, unspecified, E89.40 - Asymptomatic postprocedural ovarian failure, Z00.01 - Encounter for general adult medical examination with abnormal findings Alanine Aminotransferase 01/07/24 E11.9 - Type 2 diabetes mellitus without complications, E11.65 - Type 2 diabetes mellitus with hyperglycemia, I10 - Essential (primary) hypertension, E78.5 - Hyperlipidemia, unspecified, E89.40 - Asymptomatic postprocedural ovarian failure, Z00.01 - Encounter for general adult medical examination with abnormal findings Aspartate Amino Transferase 01/07/24 E11.9 - Type 2 diabetes mellitus without complications, E11.65 - Type 2 diabetes mellitus with hyperglycemia, I10 - Essential (primary) hypertension, E78.5 - Hyperlipidemia, unspecified, E89.40 - Asymptomatic postprocedural ovarian failure, Z00.01 - Encounter for general adult medical examination with abnormal findings Hemoglobin A1c 01/07/24 E11.9 - Type 2 diabetes mellitus without complications, E11.65 - Type 2 diabetes mellitus with hyperglycemia, I10 - Essential (primary) hypertension, E78.5 - Hyperlipidemia, unspecified, E89.40 - Asymptomatic postprocedural ovarian failure, Z00.01 - Encounter for general adult medical examination with abnormal findings Microalbumin, Random (w Creat) 01/07/24 E11.9 - Type 2 diabetes mellitus without complications, E11.65 - Type 2 diabetes mellitus with hyperglycemia, I10 - Essential (primary) hypertension, E78.5 - Hyperlipidemia, unspecified, E89.40 - Asymptomatic postprocedural ovarian failure, Z00.01 - Encounter for general adult medical examination with abnormal findings Vitamin D 25-OH Total 01/07/24 E11.9 - Type 2 diabetes mellitus without complications, E11.65 - Type 2 diabetes mellitus with hyperglycemia, I10 - Essential (primary) hypertension, E78.5 - Hyperlipidemia, unspecified, E89.40 - Asymptomatic postprocedural ovarian failure, Z00.01 - Encounter for general adult medical examination with abnormal findings Medications: Changed From metformin Please call to schedule PCP appt for more refills 1,000 mg PO BID 180 tabs 3RF To metformin Please call to schedule PCP appt for more refills 1,000 mg PO BID 180 tabs 3RF Refilled empagliflozin 25 mg PO QAM 90 tabs 3RF E11.65 - Type 2 diabetes mellitus with hyperglycemia glipizide ER 10 mg (2 x 5 mg) PO BID 360 tabs 3RF 90 days E11.65 - Type 2 diabetes mellitus with hyperglycemia losartan 50 mg PO DAILY 90 tabs 3RF I10 - Essential (primary) hypertension pravastatin 80 mg PO DAILY 90 tabs 3RF Coding Level of Care Code Est Pt Prev Care 40-64y(34704) Diagnoses Annual visit for general adult medical examination with abnormal findings Z00.01 Type 2 diabetes mellitus with hyperglycemia, without long-term current use of insulin E11.65 Diabetes mellitus type: type 2 Essential hypertension I10 Dyslipidemia E78.5 Additional Codes ALMITA-7 Assessment Billing - ALMITA-7 Assessment Tool: ALMITA-7 Assessment [id number] ([id number])
== END 2023-10-15 11:26 | disposition home or self-care (01) ==
PROVIDERS: PCP Internal Medicine; Visit Provider Internal Medicine
DX: Z00.00 Encounter for general adult medical examination without abnormal findings (principal); E11.65 Type 2 diabetes mellitus with hyperglycemia; I10 Essential (primary) hypertension; E78.5 Hyperlipidemia, unspecified
CPT/HCPCS: 99396

== ENCOUNTER → 2023-11-28 07:33 | Outpatient (REF) | payer BC, SELFPAY ==
--- NOTE | 2023-11-28 07:40 | ECG_ITS ---
Test Reason : Z01.818 Blood Pressure : / mmHG Vent. Rate : 084 BPM Atrial Rate : 084 BPM P-R Int : 136 ms QRS Dur : 084 ms QT Int : 394 ms P-R-T Axes : 047 -06 013 degrees QTc Int : 465 ms Normal sinus rhythm Normal ECG When compared with ECG of 24-DEC-2020 08:24, No significant change was found Referred By: Catalina Tavares Electronically Signed By:Troy Hunt
== END ==
LOC: HO.CARD 07:33
PROVIDERS: PCP Internal Medicine; Visit Provider Internal Medicine
DX: Z01.818 Encounter for other preprocedural examination (principal); I10 Essential (primary) hypertension; E11.65 Type 2 diabetes mellitus with hyperglycemia; E78.5 Hyperlipidemia, unspecified
CPT/HCPCS: 93005

== ENCOUNTER → 2023-11-28 07:40 | Outpatient (BNV) | payer BC, SELFPAY | PROVIDERS: PCP Internal Medicine; Visit Provider Internal Medicine Cardiovascular Disease | DX: Z01.818 Encounter for other preprocedural examination (principal) | CPT/HCPCS: 93010 ==

== ENCOUNTER 2023-11-29 12:52 | Outpatient (REF) | payer BC, SELFPAY ==
--- NOTE | ~2023-11-29 | US_ITS ---
EXAMINATION: US RETROPERITONEAL LIMITED (RENAL ONLY) CLINICAL INFORMATION: Calculus of kidney. COMPARISON: Renal ultrasound 12/06/2022 and 02/03/2021. CT abdomen and pelvis without contrast 12/24/2020. TECHNIQUE: Real-time imaging of the kidneys. FINDINGS: RIGHT KIDNEY: 11.2 x 6.3 x 4.9 cm (SAG x AP x TRV). The kidney is normal in size, contour, and echogenicity. Renal cortical thickness is normal. No calculi or focal parenchymal lesions. No hydronephrosis. LEFT KIDNEY: 12.4 x 5.4 x 4.4 cm (SAG x AP x TRV). The kidney is normal in size, contour, and echogenicity. Renal cortical thickness is normal. No calculi or focal parenchymal lesions. No hydronephrosis. US/US renal BI IMPRESSION: Unremarkable examination.
== END 2023-11-29 12:53 | disposition home or self-care (01) ==
LOC: HO.HMGCX 12:52
PROVIDERS: PCP Internal Medicine; Visit Provider Nurse Practitioner Family
DX: N20.0 Calculus of kidney (principal)
CPT/HCPCS: 76775

== ENCOUNTER 2023-12-05 08:46 | Outpatient (AMB) | payer BC, SELFPAY ==
[2023-12-05 08:48] VITALS: BP 122/60; PULSE 89; O2SAT 99; BMI 28.7
--- NOTE | 2023-12-05 08:48 | A.OFFPC_ITS ---
Vital Signs 12/05/23 08:48 Height 4 ft 11 in Weight 142 lb BMI 28.7 BP 122/60 Blood Pressure Location Rt brachial Position Sitting Pulse 89 Pulse Source Pulse Oximeter Pulse Oximetry (%) 99 Intake Visit Reasons: Dr. Syed bilateral eye lid 12/12/23 Intake Note: Pt is here today for her pre-op for bilateral upper lid dermatochalasis, bilateral lower lid dermatochalasis Dr. Syed for 12/12/23 Allergies No Known Allergies Allergy (Verified 12/05/23 09:44) Medication List - Last Reconciled 12/05/23 by Catalina Tavares MD biotin mcg PO cholecalciferol (vitamin D3) 50 mcg PO DAILY cinnamon bark (Cinnamon) 1,000 mg PO DAILY empagliflozin 25 mg PO QAM glipizide ER 10 mg (2 x 5 mg) PO BID 90 days losartan 50 mg PO DAILY metformin 1,000 mg PO BID mv-mn-folic ac-vit K-herb 289 800-100 mcg (Alive Once Daily Women 50 Plus) tabs PO omega 9-cpq-lwh-fish oil 60-90-500 mg (Fish Oil) 1 cap PO DAILY omeprazole 20 mg PO DAILY 10 days pravastatin 80 mg PO DAILY Tobacco use date assessed: 12/05/23 Dental Screening Dental Screen Date: 12/05/23 Did you have a dental visit in the last 12 months?: Yes Did you have a dental problem in the last 6 months where you did not have access to dental care?: No Was dental information given to patient?: Patient has dentist HPI Dr. Syed bilateral eye lid 12/12/23 HPI Details 58-year-old lady with hypertension, diab etes mellitus, hyperlipidemia, here today for preoperative exam urination for surgical correction of dermatochalasia in both upper and lower lids bilateral, scheduled for 12/12/2023, requested by Dr. Syed. She has been feeling well, with no complaints at present time, recent hemoglobin A1c is at 7.4% with normal lipids. Blood pressure stable and controlled on present treatment. [facility] Medical History Dermatochalasis of both eyelids Diabetes mellitus, without long-term current use of insulin Hx of acute otitis media Nephrolithiasis Osteoarthritis of left knee Diabetes mellitus with hyperglycemia, without long-term current use of insulin Uterine fibroid Surgical menopause Dyslipidemia Essential hypertension Surgical History History of partial hysterectomy Family History Father Diabetes Hypertension Pacemaker Stroke Mother No problems noted. Brother Diabetes Heart disease Brother Mental health disorder Sister Family hx-anemia Maternal Uncle Substance use disorder Social History Housing: House Alcohol intake: never Comment: medicated, see MAR Patient Tobacco Use Status: Never used Tobacco e-Cigarette/Vaping Use: Never Used service: No Current occupational status: employed Cognitive needs: No Hearing needs: No Vision needs: Yes Questionnaire PHQ-9 Over the last 2 weeks, how often have you been bothered by any of the following problems? 1. Little interest or pleasure in doing things: not at all 2. Feeling down, depressed, or hopeless: not at all 3. Trouble falling or staying asleep, or sleeping too much: not at all 4. Feeling tired or having little energy: not at all 5. Poor appetite or overeating: not at all 6. Feeling bad about yourself - or that you are a failure or have let yourself or your family down: not at all 7. Trouble concentrating on things, such as reading the newspaper or watching television: not at all 8. Moving or speaking so slowly that other people could have noticed. Or the opposite - being so fidgety or restless that you have been moving around a lot more than usual: not at all 9. Thoughts that you would be better off or of hurting yourself in some way: not at all Total score: 0 Depression Screening Interpretation: Negative Depression Screening Done: Yes 88669 - PHQ-9 Billing: Yes Source: Developed by Drs. Nael Antonio, Zeina Jaime, Willam Ochoa and colleagues, with an educational maría elena from [employer]. Thrive Questionnaire Date Thrive assessed: 12/05/23 I am a: Patient What is your living situation today?: I have a steady place to live Within the past 12 months, did the food you bought not last and you didn't have the money to get more?: Never true Within the past 12 months, did you worry whether your food would run out before you got money to buy more?: Never true Do you have trouble paying for medicines?: No Do you have trouble getting transportation to medical appointments?: No Do you have trouble paying your heating and electricity bill?: No Do you have trouble taking care of your child, family member or friend?: No Do you have trouble with day-to-day activities such as bathing, preparing meals, shopping, managing finances, etc.?: No Are you currently unemployed and looking for a job?: No Are you interested in more education?: No THRIVE Score: 0 AUDIT C Alcohol Use Questionnaire (AUDIT-C) 1. How often do you have a drink containing alcohol?: Monthly or less 2. How many drinks containing alcohol do you have on a typical day when you are drinking?: 1 or 2 3. How often do you have six or more drinks on one occasion?: Never Total Score: 1 ALMITA-7 AMB Questionnaire ALMITA-7 Date ALMITA - 7 assessed: 12/05/23 Feeling nervous, anxious, or on edge: 0 = Not at all Not being able to stop or control worryin = Not at all Worrying too much about different things: 0 = Not at all Trouble relaxin = Not at all Being so restless that it is hard to sit still: 0 = Not at all Becoming easily annoyed or irritable: 0 = Not at all Feeling afraid as if something awful might happen: 0 = Not at all Total ALMITA-7 score (0-4 normal; 5-9 mild; 10-14 moderate; 15-21 severe): 0 Source: Developed by Drs. Nael Antonio, Zeina Jaime, Willam Ochoa and colleagues, with an educational maría elena from [employer]. ALMITA-7 Assessment Billing ALMITA-7 Assessment Tool: ALMITA-7 Assessment 33899 Review of Systems Const Denies chills, Denies fatigue, Denies fever(s), Denies headache(s) and Denies malaise Eyes Details: goes to Dr Alvarez for her diabetes eye exam , UTD with her diabetes retinopathy screening, decreased peripheral vision in both eyes Denies change in vision ENT Denies dysphagia, Denies dizziness, Denies headache(s) and Denies nasal congestion Card Reports no additional complaints Resp Reports no additional complaints GI Denies dysphagia Reports no additional complaints Musc Reports no additional complaints Skin/Breast Details: sees dr quinones yearly Denies breast pain and Denies breast mass Neuro Denies dizziness and Denies headache(s) Psych Reports no additional complaints Endo Denies fatigue Bro/Lymph Reports no additional complaints Aller/Immun Reports no additional complaints Physical exam (Primary Care) Vital Signs: Last Vital Signs Pulse 89 12/05/23 08:48 BP 122/60 12/05/23 08:48 Pulse Ox 99 12/05/23 08:48 BMI result Body Mass Index 28.7 Tobacco/Smoking Status: Tobacco use Status Tobacco use date assessed 12/05/23 12/05/23 08:52 Patient Tobacco Use Status Never used Tobacco 12/05/23 08:52 e-Cigarette/Vaping Use Never Used 12/05/23 08:52 Depression Screening Interpretation: Negative Thrive Assessment: Date of Thrive Assessment Date Thrive assessed 10/15/23 12/05/23 08:52 Const Other: Alert oriented x3, no acute distress noted ambulatory normal gait Orientation/consciousness: patient oriented x3 HENMT Ears: TM's normal bilaterally and EAC's normal General nose exam: Normal external nose present Face and sinus: Yes face symmetric Mouth: Normal oral and palatal mucosa present, oropharynx normal and moist mucous membranes Eyes General: appearance normal, both eyes and all related structures Neck Neck: Yes no lymphadenopathy and Yes supple Thyroid: Thyroid normal Chest Breast/axilla palpation: normal palpation of the breasts Resp Auscultation: clear to auscultation bilaterally Cardio Other: S1-S2 present regular rate and rhythm GI Palpation (GI): Soft to palpation, nontender, no guarding and no masses General: Yes no CVA tenderness Back/Spine/Pelvis Back: no CVA tenderness and No back tenderness Skin General skin exam: no rashes or lesions noted Neuro General: patient oriented x3, gait normal, moves all extremities, Normal light touch and pain sensation, no focal motor deficits, CN's II-XI intact bilaterally and normal sensation to monofilament Extrem General: Yes full ROM, Yes no joint enlargement, Yes no pedal edema and Yes normal gait Psych Appearance: grossly normal and well kempt Mental Status: mental status grossly normal Speech and movement: Normal speech and movement present Affect: normal affect Results Reviewed Results Reviewed: RUN: 12/05/2326 PAGE 1 [facility] [address] [place] [id number] Certified Nurses' Aide: Bala Campbell M.D. Specimen Inquiry Name: Mayte Flanagan Age/Sex: 58/F : 1965 Unit#: [id number] Attend Dr: Catalina Tavares MD Re10/06/23 Status: DEP REF Location: [facility] Disch: SPEC : [id number] TERRANCE: 10/06/23 STATUS: COMP REQ : [id number] RECD: 10/06/[address]: Catalina Tavares MD COMP: 10/06/23 ENTERED: 10/06/[address]: ORDERED: Met Prof Fast, AST, ALT, Lipid Panel, Vitamin D 25-OH Test Result Flag Reference Sodium 142 135-145 mmol/L Potassium 5.3 # H 3.3-5.1 mmol/L CL 106 96-108 mmol/L CO2 28 22-29 mmol/L Gap 13 12-20 BUN 13 9-16 mg/dL Creat 0.73 0.5-1.4 mg/dL EGFR > 60 NOTE: For -[place] Citizen individuals, multiply the result by 1.210. Chronic Kidney Disease: Estimated GFR < 60 mL/min/1.73m2 Severe Kidney Disease: Estimated GFR < 15 mL/min/1.73m2 FBS 164 H 60-99 mg/dL A fasting glucose of 126 mg/dl or greater on more than one occasion is considered diagnostic of diabetes. CA 9.5 8.4-10.2 mg/dL AST (GOT) 17 5-31 U/L ALT (GPT) 17 0-31 U/L Triglyceride 175 H <150 mg/dL Desirable Triglyceride: less than 150 mg/dL Borderline High Triglyceride 150-199 mg/dL High Triglyceride: 200-499 mg/dL Very High Triglyceride: greater than or equal to 5OO mg/dL Cholesterol 154 <200 mg/dL Desirable Cholesterol: less than 200 mg/dL Borderline High Cholesterol: 200-239 mg/dL High Cholesterol: greater than 239 mg/dL LDL Calculated 82 <100 mg/dL Desirable LDL: less than 100 mg/dL Near Optimal/Above Optimal LDL: 110-129 mg/dL Borderline High LDL: 130-159 mg/dL High LDL: 160-189 mg/dL Very High LDL: greater than or equal to 190 mg/dL HDL 37 L >40 mg/dL Desirable HDL: greater than 40 mg/dL Note: This HDL assay may give artificially low results in patients with liver disease. Vit D 25-OH Tot 144.3 >30 ng/mL Health Based Reference Values* < 20 ng/mL Deficient 20-30 ng/mL Insufficient > 30 ng/mL Sufficient Laboratory Tests 10/06/23 08:00 Estimat Average Glucose 166 Hemoglobin A1c % 7.4 H Assessment and Plan Assessment & Plan (1) Preoperative examination: Code(s): Z01.818 - Encounter for other preprocedural examination Plan: Pt is a 4 year old here for pre-op clearance for surgical correction of dermatochalasis of upper and lower lids bilateral. She has hypertension, hyperlipidemia, diabetes mellitus, stable and controlled on present treatment.. She deny having anypulmonary or cardiac symptoms, preop exam is unremarkable. EKG shows normal sinus with no acute ST-T changes . She has a low cardiac ri sk index for proposed surgery . She has been advised to hold of on taking her Dobbins 3 fatty acid supplement 1 week prior to scheduled surgery (2) Diabetes mellitus with hyperglycemia, without long-term current use of insulin: Code(s): E11.65 - Type 2 diabetes mellitus with hyperglycemia Qualifiers: Diabetes mellitus type: type 2 Qualified Code(s): E11.65 - Type 2 diabetes mellitus with hyperglycemia Plan: Hemoglobin A1c is at 7.4%, continued on empagliflozin, glipizide ER and metformin. Reinforced importance of following recommended diet and getting regular exercise. (3) Dyslipidemia: Code(s): E78.5 - Hyperlipidemia, unspecified Plan: Continue with pravastatin 80 mg at bedtime, currently also on Dobbins 3 fatty acid supplements (4) Essential hypertension: Code(s): I10 - Essential (primary) hypertension Plan: Blood pressure at goal of less than 130/80. Reinforced importance of following a low sodium diet, getting regular exercise, and lowering stress levels. Continue losartan 50 mg daily (5) Dermatochalasis of both eyelids: Code(s): H02.833 - Dermatochalasis of right eye, unspecified eyelid; H02.836 - Dermatochalasis of left eye, unspecified eyelid Qualifiers: Eyelid: both upper and lower Qualified Code(s): H02.831 - Dermatochalasis of right upper eyelid; H02.832 - Dermatochalasis of right lower eyelid; H02.834 - Dermatochalasis of left upper eyelid; H02.835 - Dermatochalasis of left lower eyelid Coding Level of Care Code Est Pt Level 4 (84755) Diagnoses Preoperative examination Z01.818 Type 2 diabetes mellitus with hyperglycemia, without long-term current use of insulin E11.65 Diabetes mellitus type: type 2 Dyslipidemia E78.5 Essential hypertension I10 Dermatochalasis of upper and lower eyelids of both eyes H02.831; H02.832; H02.834; H02.835 Eyelid: both upper and lower Additional Codes ALMITA-7 Assessment Billing - ALMITA-7 Assessment Tool: ALMITA-7 Assessment 21569 ([id number])
== END 2023-12-05 11:01 | disposition home or self-care (01) ==
PROVIDERS: PCP Internal Medicine; Visit Provider Internal Medicine
DX: Z01.818 Encounter for other preprocedural examination (principal); E11.65 Type 2 diabetes mellitus with hyperglycemia; E78.5 Hyperlipidemia, unspecified; I10 Essential (primary) hypertension; H02.831 Dermatochalasis of right upper eyelid; H02.832 Dermatochalasis of right lower eyelid; H02.834 Dermatochalasis of left upper eyelid; H02.835 Dermatochalasis of left lower eyelid
CPT/HCPCS: 99214

== ENCOUNTER 2023-12-10 09:19 | Outpatient (AMB) | payer BC, SELFPAY ==
--- NOTE | 2023-12-10 09:21 | A.OFFVIS_ITS ---
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 Required: No Accompanied by: Self / Same As Patient Allergies No Known Allergies Allergy (Verified 12/10/23 10:00) Medication List - Last Reconciled 12/10/23 by ROSAS Cadena biotin mcg PO cholecalciferol (vitamin D3) 50 mcg PO DAILY cinnamon bark (Cinnamon) 1,000 mg PO DAILY empagliflozin 25 mg PO QAM glipizide ER 10 mg (2 x 5 mg) PO BID 90 days losartan 50 mg PO DAILY metformin 1,000 mg PO BID mv-mn-folic ac-vit K-herb 289 800-100 mcg (Alive Once Daily Women 50 Plus) tabs PO omega 4-tmm-fqd-fish oil 60-90-500 mg (Fish Oil) 1 cap PO DAILY omeprazole 20 mg PO DAILY 10 days pravastatin 80 mg PO DAILY HPI HPI Comments History of Present Illness Details Mayte is a pleasant 58 year old female patient of Dr. Immanuel willson. She has a past medical history of diabetes, nephrolithiasis, osteoarthritis, uterine fibroids, dyslipidemia, and hypertension. She presents to the office today for a follow up of her nephrolithiasis. When asked she reports to be doing well. Recent renal imaging reviewed with the patient unremarkable renal ultrasound examination. When asked she denies flank pain, hematuria, urinary frequency, urinary urgency, incontinence, fever, and or chills. Patient offers no complaints or concerns at this time. She has a history of left sided ureteroscopy with left ureteric stone in 01/23. When asked patient reports drinking plenty of water daily. Encouraged to continue to do so. In office UA with 3+ glucose otherwsie WNL however patient on Jardiance. She otherwise denies any other issues or concerns . [facility] Medical History Dermatochalasis of both eyelids Diabetes mellitus, without long-term current use of insulin Hx of acute otitis media Nephrolithiasis Osteoarthritis of left knee Diabetes mellitus with hyperglycemia, without long-term current use of insulin Uterine fibroid Surgical menopause Dyslipidemia Essential hypertension Surgical History History of partial hysterectomy Family History Father Diabetes Hypertension Pacemaker Stroke Mother No problems noted. Brother Diabetes Heart disease Brother Mental health disorder Sister Family hx-anemia Maternal Uncle Substance use disorder Social History Housing: House Alcohol intake: never Comment: medicated, see MAR Patient Tobacco Use Status: Never used Tobacco e-Cigarette/Vaping Use: Never Used service: No Current occupational status: employed Cognitive needs: No Hearing needs: No Vision needs: Yes Review of Systems Eyes Reports no additional complaints ENT Reports no additional complaints Card Reports as per HPI Resp Reports no additional complaints GI Reports no additional complaints Reports as per HPI Musc Reports as per HPI Neuro Reports no additional complaints Psych Reports no additional complaints Endo Reports as per HPI Bro/Lymph Reports no additional complaints Aller/Immun Reports no additional complaints Physical Exam Const General: cooperative, healthy appearing, comfortable, no acute distress, well developed, alert and awake Orientation/consciousness: patient oriented x3 Limitations: no limitations HEENT Head: Yes normal to inspection, Yes normocephalic and Yes atraumatic Ears: hearing grossly normal bilaterally Eyes General: appearance normal, both eyes and all related structures Neck Neck: Yes normal visual inspection and Yes trachea midline Chest Chest palpation & inspection: normal inspection of the chest Resp Effort & Inspection: normal respiratory effort and able to speak in complete sentences Cardio Rate: regular rate GI Inspection: Yes normal to inspection General: Yes no CVA tenderness Back/Spine/Pelvis Back: no CVA tenderness Skin General skin exam: no rashes or lesions noted Neuro General: patient oriented x3 Extrem General: Yes normal to inspection Psych Appearance: grossly normal and well kempt Mental Status: mental status grossly normal Speech and movement: Normal speech and movement present and Clear speech present Affect: normal affect Attitude: cooperative Thought process: Normal thought process present Thought content: Normal thought content present Insight: Good insight present (Psych) Judgement: Good judgement present (Psych) Results AMB Urinalysis, Automated UA Leukoctes 0 Rocco/uL Last Edit by Meena Wheeler on 12/10/23 09:36 UA Nitrite Negative Last Edit by Meena Wheeler on 12/10/23 09:36 UA Urobilinogen 0.2 mg/dL Last Edit by Meena Trudiaurora on 12/10/23 09:36 UA Protein 0 mg/dL Last Edit by Meena Wheeler on 12/10/23 09:36 UA pH 6.0 Last Edit by Meena Wheeler on 12/10/23 09:36 UA Blood 0 Vamsi/uL Last Edit by Meena Wheeler on 12/10/23 09:36 UA Specific [place] 1.015 Last Edit by Meena Wheeler on 12/10/23 09:36 UA Ketone Negative Last Edit by Meena Wheeler on 12/10/23 09:36 UA Bilirubin 0 mg/dL Last Edit by Meena Wheeler on 12/10/23 09:36 UA Glucose 1000 mg/dL Last Edit by Meena Wheeler on 12/10/23 09:36 Results Reviewed Results Reviewed: Laboratory Last Values Urine pH (Auto) 6.0 12/10/23 09:26 Specific [place] (Auto) 1.015 12/10/23 09:26 Urine Protein (Auto) 0 mg/dL 12/10/23 09:26 Glucose (UA)(Auto) 1000 mg/dL 12/10/23 09:26 Urine Ketones (Auto) Negative 12/10/23 09:26 Urine Blood (Auto) 0 Vamsi/uL 12/10/23 09:26 Urine Nitrite (Auto) Negative 12/10/23 09:26 Urine Bilirubin (Auto) 0 mg/dL 12/10/23 09:26 Urine Urobilinogen (Auto) 0.2 mg/dL 12/10/23 09:26 Leukocyte Esterase (Auto) 0 Rocco/uL 12/10/23 09:26 Date of Service: 11/29/23 EXAMINATION: US RETROPERITONEAL LIMITED (RENAL ONLY) FINDINGS: RIGHT KIDNEY: 11.2 x 6.3 x 4.9 cm (SAG x AP x TRV). The kidney is normal in size, contour, and echogenicity. Renal cortical thickness is normal. No calculi or focal parenchymal lesions. No hydronephrosis. LEFT KIDNEY: 12.4 x 5.4 x 4.4 cm (SAG x AP x TRV). The kidney is normal in size, contour, and echogenicity. Renal cortical thickness is normal. No calculi or focal parenchymal lesions. No hydronephrosis. IMPRESSION: Unremarkable examination. Assessment & Plan Assessment & Plan (1) Nephrolithiasis: Code(s): N20.0 - Calculus of kidney Plan In office urinalysis with 3+ glucose otherwise within normal limits; Patient on Jardiance Recent renal ultrasound results reviewed with the patient; unremarkable; as noted above Continue with adequate amount of water daily. She denies any bothersome urinary issues or concerns. She reports be happy with current voiding parameters. Will obtain renal ultrasound in 1 year. Follow-up in 1 year with imaging to be completed prior; or sooner with any issues, concerns, and or questions Orders: Orders US renal BI 364 Days N20.0 - Calculus of kidney AMB Urinalysis Automated Today Z13.9 - Encounter for screening, unspecified Patient Instructions: The patient had an opportunity to ask questions regarding the treatment plan. All questions were answered. Physical exam, labs, and imaging were discussed and reviewed in detail. As well as risks, benefits, and discussion of treatment choices. No major barriers to understanding were identified. The patient expressed understanding and agreement with the above treatment plan. The patient was made aware they should contact our office by phone for worsening of their current condition, the appearance of new symptoms, or with any questions or concerns. Compliance is encouraged with any medications and follow up testing that is ordered. It is a privilege to be allowed the opportunity to participate in? your urological care.? Again, if you have any questions or concerns If you have any questions or concerns please do not hesitate to contact me. The office is [phone]. This note is constructed using voice recognition software. While every effort has been made to ensure accuracy coin rolling machine operator errors may have been included. Yours sincerely, ROSAS Cadena Coding Level of Care Code Est Pt Level 3 (56780) Diagnoses Nephrolithiasis N20.0
== END 2023-12-10 09:58 | disposition home or self-care (01) ==
PROVIDERS: PCP Internal Medicine; Visit Provider Nurse Practitioner Family
DX: N20.0 Calculus of kidney (principal); Z13.9 Encounter for screening, unspecified
CPT/HCPCS: 99213

== ENCOUNTER → 2023-12-10 09:19 | Outpatient (BNVA) | payer BC, SELFPAY | PROVIDERS: Visit Provider Nurse Practitioner Family | DX: N20.0 Calculus of kidney (principal) | CPT/HCPCS: 81003 ==

== ENCOUNTER 2024-02-02 09:30 | Outpatient (REF) | payer BC, SELFPAY | END 2024-02-02 09:31 | disposition home or self-care (01) | LOC: HO.MAMMO 09:30 | PROVIDERS: PCP Internal Medicine; Visit Provider Internal Medicine | DX: Z12.31 Encounter for screening mammogram for malignant neoplasm of breast (principal) | CPT/HCPCS: 77063; 77067 ==

== ENCOUNTER → 2024-02-02 09:45 | Outpatient (BNV) | payer BC, SELFPAY | PROVIDERS: PCP Internal Medicine; Visit Provider Radiology Diagnostic Radiology | DX: Z12.31 Encounter for screening mammogram for malignant neoplasm of breast (principal) | CPT/HCPCS: 77063; 77067 ==

== ENCOUNTER 2024-04-03 07:45 | Outpatient (REF) | payer BC, SELFPAY ==
[2024-04-03 10:47] LABS: Estimated Average Glucose 163 mg/dL; Hemoglobin A1c % 7.3 % (<6.0)
[2024-04-03 10:53] LABS: Alanine Aminotransferase 18 U/L (0-31); Anion Gap 13 (12-20); Aspartate Amino Transferase 18 U/L (5-31); Blood Urea Nitrogen 14 mg/dL (9-16); Calcium 8.8 mg/dL (8.4-10.2); Carbon Dioxide 25 mmol/L (22-29); Chloride 108 mmol/L (96-108); Cholesterol 158 mg/dL (<200); Estimated Glomerular Filt Rate > 60; Glucose Fasting 166 mg/dL (60-99); HDL Cholesterol 41 mg/dL (>40); LDL Cholesterol Calculated 81 mg/dL (<100); Potassium 4.9 mmol/L (3.3-5.1); Sodium 141 mmol/L (135-145); Triglycerides 183 mg/dL (<150)
[2024-04-03 11:14] LABS: Vitamin D 25-OH Total 81.2 ng/mL (>30)
[2024-04-03 11:21] LABS: Creatinine Urine 62.75 mg/dL; Microalbum/Creatinine Ratio Ur 15.9 ug/mg cr (<30)
== END 2024-04-03 07:46 | disposition home or self-care (01) ==
LOC: HO.HMGCLDS 07:45
PROVIDERS: PCP Internal Medicine; Visit Provider Internal Medicine
DX: Z00.01 Encounter for general adult medical examination with abnormal findings (principal); E11.65 Type 2 diabetes mellitus with hyperglycemia; I10 Essential (primary) hypertension; E78.5 Hyperlipidemia, unspecified; E89.40 Asymptomatic postprocedural ovarian failure
CPT/HCPCS: 36415; 80048; 80061; 82043; 82306; 82570; 83036; 84450; 84460

== ENCOUNTER 2024-04-08 07:55 | Outpatient (AMB) | payer BC, SELFPAY ==
--- NOTE | 2024-04-08 08:00 | MHC.PC.OV ---
Vital Signs 04/08/24 08:01 Height 4 ft 11 in Weight 140 lb BMI 28.3 BP 126/68 Blood Pressure Location Rt brachial Position Sitting Pulse 102 H Pulse Source Pulse Oximeter Pulse Oximetry (%) 98 Oxygen Delivery Method Room Air Intake Visit Reasons: 4 months F/U Intake Note: pt here for f/u lab results Allergies No Known Allergies Allergy (Verified 04/08/24 08:19) Medication List - Last Reconciled 04/08/24 by Catalina Tavares MD biotin mcg PO cholecalciferol (vitamin D3) 50 mcg PO DAILY cinnamon bark (Cinnamon) 1,000 mg PO DAILY empagliflozin 25 mg PO QAM glipizide ER 10 mg (2 x 5 mg) PO BID 90 days losartan 50 mg PO DAILY metformin 1,000 mg PO BID mv-mn-folic ac-vit K-herb 289 800-100 mcg (Alive Once Daily Women 50 Plus) tabs PO omega 0-nnx-aqk-fish oil 60-90-500 mg (Fish Oil) 1 cap PO DAILY omeprazole 20 mg PO DAILY 10 days pravastatin 80 mg PO DAILY Tobacco use date assessed: 04/08/24 Dental Screening Dental Screen Date: 04/08/24 Did you have a dental visit in the last 12 months?: Yes Did you have a dental problem in the last 6 months where you did not have access to dental care?: No Was dental information given to patient?: Patient has dentist HPI 4 months F/U HPI Details 58-year-old lady with diabetes mellitus, here today for follow-up. She is currently taking metformin a 1000 mg twice a day, empagliflozin 25 mg in the morning and glipizide ER 10 mg twice a day with meals. Latest hemoglobin A1c came back at 7.3%. Admits to not being very compliant with diet and not getting much exercise lately. She has hypertension currently on losartan 50 mg daily, with blood pressure stable and controlled on present treatment. Currently takes pravastatin 80 mg daily at night and Abbot 3 fatty acid supplements 1 capsule daily for hyperlipidemia, with recent fasting lipids showing LDL cholesterol at goal but triglycerides were elevated at 183 mg/dL. She sees Dr. Fu for her yearly diabetes retinopathy screening with non seen on last year's exam [facility] Medical History Dermatochalasis of both eyelids Diabetes mellitus, without long-term current use of insulin Hx of acute otitis media Nephrolithiasis Osteoarthritis of left knee Diabetes mellitus with hyperglycemia, without long-term current use of insulin Uterine fibroid Surgical menopause Dyslipidemia Essential hypertension Surgical History (Updated 04/08/24 @ 08:24 by Catalina Tavares MD) History of blepharoplasty History of partial hysterectomy Family History Father Diabetes Hypertension Pacemaker Stroke Mother No problems noted. Brother Diabetes Heart disease Brother Mental health disorder Sister Family hx-anemia Maternal Uncle Substance use disorder Social History Housing: House Alcohol intake: never Comment: medicated, see MAR Patient Tobacco Use Status: Never used Tobacco e-Cigarette/Vaping Use: Never Used service: No Current occupational status: employed Cognitive needs: No Hearing needs: No Vision needs: Yes Questionnaire PHQ-9 Over the last 2 weeks, how often have you been bothered by any of the following problems? Depression Screening Interpretation: Negative Depression Screening Done: Yes Source: Developed by Drs. Nael Antonio, Zeina Jaime, Willam Ochoa and colleagues, with an educational maría elena from [employer]. Thrive Questionnaire Date Thrive assessed: 12/05/23 ALMITA-7 AMB Questionnaire ALMITA-7 Date ALMITA - 7 assessed: 12/05/23 Source: Developed by Drs. Nael Antonio, Willam Brewster and colleagues, with an educational maría elena from [employer]. Review of Systems Const Denies fatigue, Denies fever(s), Denies headache(s) and Denies malaise Eyes Details: goes to Dr Fu for her diabetes eye exam , UTD with her diabetes retinopathy screening ENT Denies dysphagia, Denies dizziness, Denies headache(s) and Denies nasal congestion Card Reports no additional complaints Resp Reports no additional complaints GI Denies dysphagia Reports no additional complaints Musc Reports no additional complaints Neuro Denies dizziness and Denies headache(s) Endo Denies fatigue, Denies polyphagia, Denies polydipsia and Denies polyuria Bro/Lymph Reports no additional complaints Aller/Immun Reports no additional complaints Physical exam (Primary Care) Vital Signs: Last Vital Signs Pulse 102 H 04/08/24 08:01 BP 126/68 04/08/24 08:01 Pulse Ox 98 04/08/24 08:01 Oxygen Delivery Method Room Air 04/08/24 08:01 BMI result Body Mass Index 28.3 Tobacco/Smoking Status: Tobacco use Status Tobacco use date assessed 04/08/24 04/08/24 08:06 Patient Tobacco Use Status Never used Tobacco 04/08/24 08:06 e-Cigarette/Vaping Use Never Used 04/08/24 08:06 Depression Screening Interpretation: Negative Thrive Assessment: Date of Thrive Assessment Date Thrive assessed 12/05/23 04/08/24 08:06 Const Other: Alert oriented x3, no acute distress noted ambulatory normal gait Orientation/consciousness: patient oriented x3 HENMT Ears: TM's normal bilaterally and EAC's normal General nose exam: Normal external nose present Face and sinus: Yes face symmetric Mouth: Normal oral and palatal mucosa present, oropharynx normal and moist mucous membranes Eyes General: appearance normal, both eyes and all related structures Neck Neck: Yes no lymphadenopathy and Yes supple Resp Auscultation: clear to auscultation bilaterally Cardio Other: S1-S2 present regular rate and rhythm GI Palpation (GI): Soft to palpation, nontender, no guarding and no masses General: Yes no CVA tenderness Back/Spine/Pelvis Back: no CVA tenderness and No back tenderness Skin General skin exam: no rashes or lesions noted Neuro General: patient oriented x3, gait normal, moves all extremities, Normal light touch and pain sensation, no focal motor deficits, CN's II-XI intact bilaterally and normal sensation to monofilament Extrem Other: Bilateral bunion present General: Yes full ROM, Yes no joint enlargement, Yes no pedal edema and Yes normal gait Results Reviewed Results Reviewed: Laboratory Tests 04/03/24 04/03/24 07:52 08:00 Estimat Average Glucose 163 Hemoglobin A1c % 7.3 H Urine Creatinine 62.75 Urine Microalbumin 10.0 Microalb/Creat Ratio 15.9 Name: Mayte Flanagan Age/Sex: 58/F : 1965 Unit#: [id number] Attend Dr: Catalina Tavares MD Re04/03/24 Status: DEP REF Location: [facility] Disch: SPEC : [id number] TERRANCE: 04/03/24 STATUS: COMP REQ : [id number] RECD: 04/03/24-[address]: Catalina Tavares MD COMP: 04/03/24-4 ENTERED: 04/03/[address]: ORDERED: Met Prof Fast, AST, ALT, Lipid Panel, Vitamin D 25-OH Test Result Flag Reference Sodium 141 135-145 mmol/L Potassium 4.9 3.3-5.1 mmol/L CL 108 96-108 mmol/L CO2 25 22-29 mmol/L Gap 13 12-20 BUN 14 9-16 mg/dL Creat 0.66 0.5-1.4 mg/dL EGFR > 60 NOTE: For -[place]hut[place] individuals, multiply the result by 1.210. Chronic Kidney Disease: Estimated GFR < 60 mL/min/1.73m2 Severe Kidney Disease: Estimated GFR < 15 mL/min/1.73m2 FBS 166 H 60-99 mg/dL A fasting glucose of 126 mg/dl or greater on more than one occasion is considered diagnostic of diabetes. CA 8.8 # 8.4-10.2 mg/dL AST (GOT) 18 5-31 U/L ALT (GPT) 18 0-31 U/L Triglyceride 183 H <150 mg/dL Desirable Triglyceride: less than 150 mg/dL Borderline High Triglyceride 150-199 mg/dL High Triglyceride: 200-499 mg/dL Very High Triglyceride: greater than or equal to 5OO mg/dL Cholesterol 158 <200 mg/dL Desirable Cholesterol: less than 200 mg/dL Borderline High Cholesterol: 200-239 mg/dL High Cholesterol: greater than 239 mg/dL LDL Calculated 81 <100 mg/dL Desirable LDL: less than 100 mg/dL Near Optimal/Above Optimal LDL: 110-129 mg/dL Borderline High LDL: 130-159 mg/dL High LDL: 160-189 mg/dL Very High LDL: greater than or equal to 190 mg/dL HDL 41 >40 mg/dL Desirable HDL: greater than 40 mg/dL Note: This HDL assay may give artificially low results in patients with liver disease. Vit D 25-OH Tot 81.2 >30 ng/mL Health Based Reference Values* < 20 ng/mL Deficient 20-30 ng/mL Insufficient > 30 ng/mL Sufficient Assessment and Plan Assessment & Plan (1) Essential hypertension: Code(s): I10 - Essential (primary) hypertension Plan: Blood pressure at goal of less than 130/80. Continue with losartan 50 mg daily Reinforced importance of following a low sodium diet, getting regular exercise, and lowering stress levels. (2) Dyslipidemia: Code(s): E78.5 - Hyperlipidemia, unspecified Plan: Lipids are within goal except for elevated triglycerides continue with pravastatin 80 mg at bedtime and Abbot 3 fatty acid supplements, stressed importance of controlling diabetes (3) Diabetes mellitus, without long-term current use of insulin: Code(s): E11.9 - Type 2 diabetes mellitus without complications Plan: Hemoglobin A1c at 7.3%, continue with metformin, Jardiance and glipizide at same dose. Reinforced importance of following recommended diet and getting regular exercise. Up-to-date with her diabetes retinopathy screening. Recheck fasting labs again in 3 months. Orders: Orders Lipid Panel 07/07/24 E11.9 - Type 2 diabetes mellitus without complications, E78.5 - Hyperlipidemia, unspecified, I10 - Essential (primary) hypertension Hemoglobin A1c 07/07/24 E11.9 - Type 2 diabetes mellitus without complications, E78.5 - Hyperlipidemia, unspecified, I10 - Essential (primary) hypertension Alanine Aminotransferase 07/07/24 E11.9 - Type 2 diabetes mellitus without complications, E78.5 - Hyperlipidemia, unspecified, I10 - Essential (primary) hypertension Aspartate Amino Transferase 07/07/24 E11.9 - Type 2 diabetes mellitus without complications, E78.5 - Hyperlipidemia, unspecified, I10 - Essential (primary) hypertension Basic Metabolic Panel Fasting 07/07/24 E11.9 - Type 2 diabetes mellitus without complications, E78.5 - Hyperlipidemia, unspecified, I10 - Essential (primary) hypertension Coding Level of Care Code Est Pt Level 4 (35991) Diagnoses Essential hypertension I10 Dyslipidemia E78.5 Diabetes mellitus, without long-term current use of insulin E11.9
[2024-04-08 08:01] VITALS: BP 126/68; PULSE 102; O2SAT 98; BMI 28.3
== END 2024-04-08 08:39 | disposition home or self-care (01) ==
PROVIDERS: PCP Internal Medicine; Visit Provider Internal Medicine
DX: I10 Essential (primary) hypertension (principal); E78.5 Hyperlipidemia, unspecified; E11.9 Type 2 diabetes mellitus without complications
CPT/HCPCS: 99214

== ENCOUNTER 2024-04-14 08:03 | Outpatient (AMB) | payer BC, SELFPAY ==
[2024-04-14 08:06] VITALS: BP 122/74; PULSE 80; TEMP 36.9; O2SAT 98; BMI 28.3
--- NOTE | 2024-04-14 08:06 | AM.OFFWIN_ITS ---
Intake Vital Signs 04/14/24 08:06 Height 4 ft 11 in Weight 140 lb BMI 28.3 BP 122/74 Blood Pressure Location Rt brachial Position Sitting Pulse 80 Pulse Source Pulse Oximeter Temp 98.4 F Temp Source Oral Pulse Oximetry (%) 98 Intake Visit Reasons: EP ?RT ear infection Intake Note: pt is here for right ear infection Patient Tobacco Use Status: Never used Tobacco Allergies No Known Allergies Allergy (Verified 04/14/24 08:06) Do you need a note to return to daycare/school/sports/work: Yes HPI HPI Comments History of Present Illness Details Patient presents to the walkin today for sick visit c/o right ear itching since Sunday started after cleaning the gutters at her home today started with some throat irritation and feeling like she needs to clear her throat often denies fever, cough, congestion, runny nose, ear pain or drainage from the ear denies chest pain, shortness of breath, dizziness, weakness, nausea, vomiting or diarrhea PFSH Medical History (Updated 04/14/24 @ 08:33 by Mckenzie Joseph APRN, [employer]) Dermatochalasis of both eyelids Diabetes mellitus, without long-term current use of insulin Hx of acute otitis media Nephrolithiasis Osteoarthritis of left knee Diabetes mellitus with hyperglycemia, without long-term current use of insulin Uterine fibroid Surgical menopause Dyslipidemia Essential hypertension Surgical History (Updated 04/08/24 @ 08:24 by Catalina Tavares MD) History of blepharoplasty History of partial hysterectomy Family History Father Diabetes Hypertension Pacemaker Stroke Mother No problems noted. Brother Diabetes Heart disease Brother Mental health disorder Sister Family hx-anemia Maternal Uncle Substance use disorder Social History Housing: House Alcohol intake: never Comment: medicated, see MAR Patient Tobacco Use Status: Never used Tobacco e-Cigarette/Vaping Use: Never Used service: No Current occupational status: employed Cognitive needs: No Hearing needs: No Vision needs: Yes Review of Systems Const All systems reviewed & are unremarkable except as noted in HPI and below Physical Exam Vital Signs: Last Vital Signs Temp 98.4 F 04/14/24 08:06 Pulse 80 04/14/24 08:06 BP 122/74 04/14/24 08:06 Pulse Ox 98 04/14/24 08:06 BMI result Body Mass Index 28.3 General: awake, alert, oriented. Answers questions appropriately. Fully engaged in examination. Skin: warm, dry, intact HEENT: TMs intact bilaterally, without erythema or exudate. Posterior pharynx without erythema or exudate. Sclera without icterus or injection. Cardiac: External chest normal in appearance. Respiratory: No cough, audible wheezing or stridor. Abdomen: without gross distension. Neurological: Oriented to person, place, time and situation. Thought process intact. Psychiatric: Appropriate mood and affect. Good judgment and insight. Assessment & Plan Assessment & Plan (1) Seasonal allergies: Code(s): J30.2 - Other seasonal allergic rhinitis Plan OTC Claritin daily OTC decongestants as needed All questions and concerns were answered. Follow up with pcp or return here for any new or worsening symptoms Coding Level of Care Code Est Pt Level 3 (67719) Diagnoses Seasonal allergies J30.2
== END 2024-04-14 09:35 | disposition home or self-care (01) ==
PROVIDERS: PCP Internal Medicine; Visit Provider Registered Nurse Emergency
DX: J30.2 Other seasonal allergic rhinitis (principal)
CPT/HCPCS: 99213

== ENCOUNTER 2024-07-08 07:49 | Outpatient (REF) | payer BC, SELFPAY ==
[2024-07-08 10:30] LABS: Estimated Average Glucose 154 mg/dL
[2024-07-08 10:46] LABS: Alanine Aminotransferase 18 U/L (0-31); Anion Gap 14 (12-20); Aspartate Amino Transferase 16 U/L (5-31); Blood Urea Nitrogen 13 mg/dL (9-16); Calcium 9.6 mg/dL (8.4-10.2); Carbon Dioxide 26 mmol/L (22-29); Chloride 107 mmol/L (96-108); Cholesterol 148 mg/dL (<200); Estimated Glomerular Filt Rate > 60; Glucose Fasting 146 mg/dL (60-99); HDL Cholesterol 38 mg/dL (>40); LDL Cholesterol Calculated 71 mg/dL (<100); Potassium 4.6 mmol/L (3.3-5.1); Sodium 142 mmol/L (135-145); Triglycerides 196 mg/dL (<150)
== END 2024-07-08 07:50 | disposition home or self-care (01) ==
LOC: HO.HMGCLDS 07:49
PROVIDERS: PCP Internal Medicine; Visit Provider Internal Medicine
DX: E11.9 Type 2 diabetes mellitus without complications (principal); E78.5 Hyperlipidemia, unspecified; I10 Essential (primary) hypertension
CPT/HCPCS: 36415; 80048; 80061; 83036; 84450; 84460

== ENCOUNTER 2024-07-10 14:49 | Outpatient (AMB) | payer BC, SELFPAY ==
--- NOTE | 2024-07-10 15:18 | MHC.PC.OV ---
Vital Signs 07/10/24 15:25 Height 4 ft 11 in Weight 141 lb BMI 28.5 BP 120/82 Blood Pressure Location Lt brachial Position Sitting Pulse 68 Pulse Source Pulse Oximeter Pulse Oximetry (%) 98 Oxygen Delivery Method Room Air Intake Visit Reasons: 3 months F/U Intake Note: Patient here for DM f/u. Allergies No Known Allergies Allergy (Verified 07/10/24 15:45) Medication List - Last Reconciled 07/10/24 by Catalina Tavares MD biotin mcg PO cholecalciferol (vitamin D3) 50 mcg PO DAILY cinnamon bark (Cinnamon) 1,000 mg PO DAILY empagliflozin 25 mg PO QAM glipizide ER 10 mg (2 x 5 mg) PO BID 90 days losartan 50 mg PO DAILY metformin 1,000 mg PO BID mv-mn-folic ac-vit K-herb 289 800-100 mcg (Alive Once Daily Women 50 Plus) tabs PO omega 7-jef-uxg-fish oil 60-90-500 mg (Fish Oil) 1 cap PO DAILY omeprazole 20 mg PO DAILY 10 days pravastatin 80 mg PO DAILY Tobacco use date assessed: 04/08/24 Dental Screening Dental Screen Date: 04/08/24 HPI 3 months F/U HPI Details 58-year-old lady with past medical history for diabetes mellitus, hypertension and hyperlipidemia, here today for her follow-up. Has been compliant with taking her medications, and tries to follow recommended diet, stays active but no regular exercise. Some improvement in diabetes control now with hemoglobin A1c at 7%. Fasting lipids are within normal limits. She sees Dr. Fu for her routine eye exam. [facility] Medical History Dermatochalasis of both eyelids Diabetes mellitus, without long-term current use of insulin Hx of acute otitis media Nephrolithiasis Osteoarthritis of left knee Diabetes mellitus with hyperglycemia, without long-term current use of insulin Uterine fibroid Surgical menopause Dyslipidemia Essential hypertension Surgical History History of blepharoplasty History of partial hysterectomy Family History Father Diabetes Hypertension Pacemaker Stroke Mother No problems noted. Brother Diabetes Heart disease Brother Mental health disorder Sister Family hx-anemia Maternal Uncle Substance use disorder Social History Housing: House Alcohol intake: never Comment: medicated, see MAR Patient Tobacco Use Status: Never used Tobacco e-Cigarette/Vaping Use: Never Used service: No Current occupational status: employed Cognitive needs: No Hearing needs: No Vision needs: Yes Questionnaire PHQ-9 Over the last 2 weeks, how often have you been bothered by any of the following problems? 1. Little interest or pleasure in doing things: not at all 2. Feeling down, depressed, or hopeless: not at all 3. Trouble falling or staying asleep, or sleeping too much: not at all 4. Feeling tired or having little energy: not at all 5. Poor appetite or overeating: not at all 6. Feeling bad about yourself - or that you are a failure or have let yourself or your family down: not at all 7. Trouble concentrating on things, such as reading the newspaper or watching television: not at all 8. Moving or speaking so slowly that other people could have noticed. Or the opposite - being so fidgety or restless that you have been moving around a lot more than usual: not at all 9. Thoughts that you would be better off or of hurting yourself in some way: not at all Total score: 0 Depression Screening Interpretation: Negative Depression Screening Done: Yes 72102 - PHQ-9 Billing: Yes Source: Developed by Drs. Nael Antonio, Zeina Jiame, Willam Ochoa and colleagues, with an educational maría elena from [employer]_. Thrive Questionnaire Date Thrive assessed: 12/05/23 I am a: Patient What is your living situation today?: I have a steady place to live Within the past 12 months, did the food you bought not last and you didn't have the money to get more?: Never true Within the past 12 months, did you worry whether your food would run out before you got money to buy more?: Never true Do you have trouble paying for medicines?: No Do you have trouble getting transportation to medical appointments?: No Do you have trouble paying your heating and electricity bill?: No Do you have trouble taking care of your child, family member or friend?: No Do you have trouble with day-to-day activities such as bathing, preparing meals, shopping, managing finances, etc.?: No Are you currently unemployed and looking for a job?: No Are you interested in more education?: Yes Please select the resources that you would like help with: None Currently or been in a relationship where the following occur: No concerns reported THRIVE Score: 0 AUDIT C Alcohol Use Questionnaire (AUDIT-C) 1. How often do you have a drink containing alcohol?: Monthly or less 2. How many drinks containing alcohol do you have on a typical day when you are drinking?: 1 or 2 3. How often do you have six or more drinks on one occasion?: Never Total Score: 1 Score Reviewed/Action Taken: No ALMITA-7 AMB Questionnaire ALMITA-7 Date ALMITA - 7 assessed: 12/05/23 Feeling nervous, anxious, or on edge: 0 = Not at all Not being able to stop or control worryin = Not at all Worrying too much about different things: 0 = Not at all Trouble relaxin = Not at all Being so restless that it is hard to sit still: 0 = Not at all Becoming easily annoyed or irritable: 0 = Not at all Feeling afraid as if something awful might happen: 0 = Not at all Total ALMITA-7 score (0-4 normal; 5-9 mild; 10-14 moderate; 15-21 severe): 0 Source: Developed by Drs. Nael Antonio, Zeina Jaime, Willam Ochoa and colleagues, with an educational maría elena from [employer] ALMITA-7 Assessment Billing ALMITA-7 Assessment Tool: ALMITA-7 Assessment 35124 Review of Systems Const Denies fatigue, Denies fever(s), Denies headache(s) and Denies malaise Eyes Details: goes to Dr Fu for her diabetes eye exam , UTD with her diabetes retinopathy screening ENT Denies dysphagia, Denies dizziness, Denies headache(s) and Denies nasal congestion Card Reports no additional complaints Resp Reports no additional complaints GI Denies dysphagia Reports no additional complaints Musc Reports no additional complaints Skin/Breast Denies new lesions and Denies rash Neuro Denies dizziness and Denies headache(s) Endo Denies fatigue, Denies polyphagia, Denies polydipsia and Denies polyuria Bro/Lymph Reports no additional complaints Aller/Immun Reports no additional complaints Physical exam (Primary Care) Vital Signs: Last Vital Signs Pulse 68 07/10/24 15:25 BP 120/82 07/10/24 15:25 Pulse Ox 98 07/10/24 15:25 Oxygen Delivery Method Room Air 07/10/24 15:25 BMI result Body Mass Index 28.5 Tobacco/Smoking Status: Tobacco use Status Tobacco use date assessed 04/08/24 07/10/24 15:20 Patient Tobacco Use Status Never used Tobacco 07/10/24 15:20 e-Cigarette/Vaping Use Never Used 07/10/24 15:20 PHQ-9: PHQ-9 Score PHQ-9: Total score 0 07/10/24 15:41 Depression Screening Interpretation: Negative Thrive Assessment: Date of Thrive Assessment Date Thrive assessed 12/05/23 07/10/24 15:20 Currently or been in a relationship where the following occur: No concerns reported Const Other: Alert oriented x3, no acute distress noted ambulatory normal gait Orientation/consciousness: patient oriented x3 HENMT Ears: TM's normal bilaterally and EAC's normal General nose exam: Normal external nose present Face and sinus: Yes face symmetric Mouth: Normal oral and palatal mucosa present and moist mucous membranes Eyes General: appearance normal, both eyes and all related structures Neck Neck: Yes no lymphadenopathy and Yes supple Resp Auscultation: clear to auscultation bilaterally Cardio Other: S1-S2 present regular rate and rhythm GI Palpation (GI): Soft to palpation, nontender, no guarding and no masses General: Yes no CVA tenderness Back/Spine/Pelvis Back: no CVA tenderness and No back tenderness Skin General skin exam: no rashes or lesions noted Neuro General: patient oriented x3, gait normal, moves all extremities, Normal light touch and pain sensation, no focal motor deficits, CN's II-XI intact bilaterally and normal sensation to monofilament Extrem Other: Bilateral bunion present General: Yes full ROM, Yes no joint enlargement, Yes no pedal edema and Yes normal gait Results Reviewed Results Reviewed: mark: Estee Flanagann Age/Sex: 58/F : 1965 Unit#: [id number] Attend Dr: Catalina Tavares MD Re07/08/24 Status: DEP REF Location: [facility] Disch: SPEC : [id number] TERRANCE: 07/08/24 STATUS: COMP REQ : [id number] RECD: 07/08/24 [facility] DR: Catalina Tavares MD COMP: 07/08/24-1045 ENTERED: 07/08/24 [facility] DR: ORDERED: Met Prof Fast, AST, ALT, Lipid Panel Test Result Flag Reference Sodium 142 135-145 mmol/L Potassium 4.6 3.3-5.1 mmol/L CL 107 96-108 mmol/L CO2 26 22-29 mmol/L Gap 14 12-20 BUN 13 9-16 mg/dL Creat 0.69 0.5-1.4 mg/dL EGFR > 60 NOTE: For -Alger[place] individuals, multiply the result by 1.210. Chronic Kidney Disease: Estimated GFR < 60 mL/min/1.73m2 Severe Kidney Disease: Estimated GFR < 15 mL/min/1.73m2 FBS 146 H 60-99 mg/dL A fasting glucose of 126 mg/dl or greater on more than one occasion is considered diagnostic of diabetes. CA 9.6 # 8.4-10.2 mg/dL AST (GOT) 16 5-31 U/L ALT (GPT) 18 0-31 U/L Triglyceride 196 H <150 mg/dL Desirable Triglyceride: less than 150 mg/dL Borderline High Triglyceride 150-199 mg/dL High Triglyceride: 200-499 mg/dL Very High Triglyceride: greater than or equal to 5OO mg/dL Cholesterol 148 <200 mg/dL Desirable Cholesterol: less than 200 mg/dL Borderline High Cholesterol: 200-239 mg/dL High Cholesterol: greater than 239 mg/dL LDL Calculated 71 <100 mg/dL Desirable LDL: less than 100 mg/dL Near Optimal/Above Optimal LDL: 110-129 mg/dL Borderline High LDL: 130-159 mg/dL High LDL: 160-189 mg/dL Very High LDL: greater than or equal to 190 mg/dL HDL 38 L >40 mg/dL Desirable HDL: greater than 40 mg/dL Note: This HDL assay may give artificially low results in patients with liver disease. Laboratory Tests 07/08/24 07:55 Estimat Average Glucose 154 Hemoglobin A1c % 7.0 H Assessment and Plan Assessment & Plan (1) Diabetes mellitus, without long-term current use of insulin: Code(s): E11.9 - Type 2 diabetes mellitus without complications Plan: Hemoglobin A1c now at 7%, continue with glipizide ER 10 mg twice a day with meals, metformin a 1000 mg 1 tablet twice a day and Jardiance 25 mg in a.m. an hour before breakfast. Reinforced importance of following diabetic diet and getting regular exercise. Up-to-date with her diabetes retinopathy screening (2) Dyslipidemia: Code(s): E78.5 - Hyperlipidemia, unspecified Plan: Reviewed recent fasting lipid profile with patient with levels within normal limits except for elevated triglycerides . Continue fish oil capsules daily and pravastatin 80 mg at bedtime. , in addition to adherence to low-cholesterol diet and regular exercise, at least 30 minutes 3 to 4 times a week. Advised patient to make healthy food choices, eat more fruits, vegetables, whole grains, wild caught fish and low-fat dairy. Limit amount of meat and fried or fatty food products, as well as processed foods and fast foods. Follow-up scheduled with repeat fasting lipid panel in months. (3) Essential hypertension: Code(s): I10 - Essential (primary) hypertension Plan: Blood pressure at goal of less than 130/80. Continue with current medication. Reinforced importance of following a low sodium diet, getting regular exercise, and lowering stress levels. Coding Level of Care Code Est Pt Level 4 (11506) Complex EM visit Add On G2211 Diagnoses Diabetes mellitus, without long-term current use of insulin E11.9 Dyslipidemia E78.5 Essential hypertension I10 Additional Codes ALMITA-7 Assessment Billing - ALMITA-7 Assessment Tool: ALMITA-7 Assessment 21264 ([id number])
[2024-07-10 15:25] VITALS: BP 120/82; PULSE 68; O2SAT 98; BMI 28.5
== END 2024-07-10 16:01 | disposition home or self-care (01) ==
PROVIDERS: PCP Internal Medicine; Visit Provider Internal Medicine
DX: E11.69 Type 2 diabetes mellitus with other specified complication (principal); E78.5 Hyperlipidemia, unspecified; I10 Essential (primary) hypertension
CPT/HCPCS: 99214

== ENCOUNTER 2024-12-01 08:21 | Outpatient (REF) | payer OTHER, SELFPAY ==
--- NOTE | ~2024-12-01 | US_ITS ---
CLINICAL HISTORY: N20.0 - Calculus of kidney US Renal Comparison: None Findings: Right kidney normal size and echotexture, 12 cm length. Left kidney normal size and echotexture, 12 cm length. No hydronephrosis of either kidney. Normal color Doppler IMPRESSION: No kidney stone is noted. This document has been electronically signed by: Brandee Tate MD on 12/01/2024 13:00:01
--- OUTSIDE RECORDS SUMMARY | 2024-12-01 12:39 | XMS_ITS | Data Portability ---
Author Organization [facility] Home Service Address [address] [place] [address] Assessment No assessment recorded. Plan of Treatment Reminders Order Date Submit Date Provider Last Modified By Organization Details Last Modified Time Details Appointments None recorded. Lab glycohemog lobin, total, blood 2017 018 [facility], [address] [place] [address], [id number], 8 08:58:58 microalbum in/creatin ine, ratio panel, urine 2017 018 [facility], [address] [place] [address], 10146, 8 08:58:59 TSH + free T4, serum [address] [facility], [address] [place] [address], 21518, 8 06:53:08 glycohemog lobin, total, blood [address] [facility], [address] [place] [address], 77979, 9 13:29:25 glycohemog lobin, total, blood [address] [facility], [address] [place] [address], 51751, 9 07:26:13 glycohemog lobin, total, blood 2018 019 [facility], [address] [place] [address], 56250, 9 08:16:26 glycohemog lobin, total, blood 2018 019 [email or web address] [facility], [address] [place] [address], 92569, 9 10:21:54 glycohemog lobin, total, blood 2018 [email or web address] [place] [address] Laboratory, [address] [place] [address], 50978, 0 08:38:34 glycohemog lobin, total, blood 2019 [email or web address] [place] [address] Laboratory, [address] [place] [address], 19713, 0 08:16:32 glycohemog lobin, total, blood 2019 [email or web address] [place] [address] Laboratory, [address] [place] [address], 93225, 0 08:44:47 glycohemog lobin, total, blood 2019 020 [facility], [address] [place] [address], 29338, 0 08:50:44 glycohemog lobin, total, blood 2019 021 [facility], [address] [place] [address], 19339, 1 09:56:31 lipid panel, blood 2017 018 [facility], [address] [place] [address], 25605, 8 08:58:58 CBC 2017 018 [facility], [address] [place] [address], 43204, 8 08:58:59 lipid panel, blood [address] [facility], [address] [place] [address], 14939, 9 07:26:13 lipid panel, blood [address] [facility], [address] [place] [address], 95351, 9 09:07:59 lipid panel, blood 2018 020 [email or web address] 10 [facility], [address] [place] [address], 92934, 0 08:16:32 lipid panel, blood 2019 [facility] [address] [place] [address], 44514, 0 08:50:44 CMP, serum or plasma 2017 018 [facility], [address] [place] [address], 08567, 8 08:58:58 CMP, serum or plasma [address] [facility], [address] [place] [address], 46838, 9 13:29:25 CMP, serum or plasma [address] [facility], [address] [place] [address], 10470, 9 07:26:13 CMP, serum or plasma 2018 019 [facility], [address] [place] [address], 44836, 9 08:16:25 CMP, serum or plasma 2018 019 [email or web address] [facility], [address] [place] [address], 27219, 9 10:21:54 CMP, serum or plasma 2018 020 [email or web address] 10 [facility], [address] [place] [address], 23979, 0 08:38:06 CMP, serum or plasma 2019 [email or web address] [place] [address] Laboratory, [address] [place] [address], 44041, 0 08:16:32 CMP, serum or plasma 2019 020 [email or web address] 10 [facility], [address] [place] [address], 05794, 0 08:44:47 CMP, serum or plasma 2019 020 [facility], [address] [place] [address], 32588, 0 08:50:44 CMP, serum or plasma 2019 021 [facility], [address] [place] [address], 34420, 1 09:56:31 HbA1c (hemoglobi n A1c), blood 2018 [facility] [address] [place] [address], 57349, 9 08:25:15 microalbum in, urine 2018 019 [facility], [address] [place] [address], 56929, 9 08:25:15 HbA1c (hemoglobi n A1c), blood 2018 [facility], [address] [place] [address], 88522, 9 08:25:15 microalbum in, urine 2018 [facility], [address] [place] [address], 85908, 9 08:25:15 lipid panel, blood 2018 [facility], [address] [place] [address], 00722, 9 08:25:15 lipid panel, blood 2018 [facility], [address] [place] [address], 86429, 9 08:25:15 CMP, serum or plasma 2018 [facility], [address] [place] [address], 75309, 9 08:25:15 CMP, serum or plasma 2018 [facility], [address] [place] [address], 50107, 9 08:25:15 HbA1c (hemoglobi n A1c), blood 2019 [facility], [address] [place] [address], 11075, 0 09:22:14 Referral general surgeon referral 2017 018 DENZEL Diamond MD[address] [place], [address], 8 15:50:23 physical therapist referral 2017 018 [facility], [address] [place] [address], [place], [address], 8 15:00:55 orthopedic referral 2019 020 [facility] Adam Ludwig MD, [address], [facility] [address], [address], 0 08:17:18 Procedures None recorded. Surgeries None recorded. Imaging XR, knee 2019 020 [facility], [facility], [place], [address], 0 08:17:31 Medication Orders prednisone 20 mg tablet 2017 [facility]18 [id number] [address] [place], [address], 9 13:32:16 glipizide ER 5 mg tablet, extended release 24 hr 2018 019 [id number], [address] [place], [address], 9 14:03:50 metformin 1,000 mg tablet 2018 019 [id number], [address] [place], [address], 9 14:03:51 pravastati n 80 mg tablet 2018 019 [id number], [address] [place], [address], 9 14:03:50 losartan 25 mg tablet 2018 019 [id number], [address] [place], [address], 9 14:03:51 naproxen 500 mg tablet 2019 020 [id number], [address] [facility] [place], [address], 0 09:44:02 Patient TargetsNo targets recorded. Patient Instructions Encounter Date Encounter Id Patient Instructions Last Modified By Organization Details Last Modified Time 07/12/2018 [id number] Continue to work on healthy diet and exercise [email or web address] Not available 07/12/2018 12:41:27 06/10/2019 [id number] high blood pressure: care instructions Not available 06/10/2019 14:03:48 learning about high blood pressure Not available 06/10/2019 14:03:48 12/10/2019 [id number] shoulder stretches: exercises Not available 12/10/2019 09:44:00 high blood pressure: care instructions Not available 12/10/2019 09:31:57 learning about high blood pressure [email or web address] Not available 12/10/2019 09:31:57 Reason for Referral General Surgeon Referral for Ganglion cyst Referring Physician: [facility], Encounter Date: 07/12/2018 Physical Therapist Referral for Bursitis of shoulder Referring Physician: [facility], Encounter Date: 07/29/2018 Orthopedic Referral for Pain in left knee Referring Physician: [facility], Encounter Date: 12/10/2019 Results Created Date Observation Date Name Description Value Unit Range Abnormal Flag Note LastModifiedBy Organization Detail LastModifiedTime 11/22/19 19 11/13/2018 [email or web address] ESQUIVEL, digit al, bilat eral No observ ation record ed. [email or web address] Not Available 2018 13:25:57 11/21/1911/19/2019 juanjose ESQUIVEL, bilat eral No observ ation record ed. [email or web address] [facility] [address] [place] [address], [place], [address], 11/21/2019 10:55:13 01/02/20 20 01/02/2020 XR, knee No observ ation record ed. [facility] [address] [place] [address], 28350, 01/05/2020 09:50:54 Result Notes None recorded. Problems Name Problem SNOMED Code Status Onset Date Resolution Date Notes Provider Name and Address Organization Details Recorded Time Pre-existing type 2 diabetes mellitus 099390668 Active 2017 Not Available [facility] 0 02:04:29 Hypercholeste rolemia 69056490 Active 2017 Not Available [facility] 0 02:04:29 Essential hypertension 30434789 Active 2017 Not Available [facility] 0 02:04:29 Type 2 diabetes mellitus 17839835 Active 2018 Not Available [facility] 0 02:04:29 Problem Notes None recorded. Procedures Surgical History None recorded. Imaging Results Imaging Date Name Status LastModified by Organiz ation Details LastModified Time 11/13/2018 MAMMO, screening, digital, bilateral completed [email or web address] Information not available 11/22/2018 13:25:57 11/19/2019 MAMMO, screening, bilateral completed [email or web address] [facility] [address] [place] [address], 76480, 11/21/2019 10:55:13 01/02/2020 XR, knee completed [facility] [address] [place] [address], 32393, 01/05/2020 09:50:54 Procedure Notes None recorded. Medical Equipment None Reported. Allergies No known drug allergies Medications Name Sig Start Date Stop Date Status Note LastModified by Organization Details LastModified Time metformin 500 mg tablet TAKE 2 TABLETS BY MOUTH TWICE A DAY NEEDS APPT FOR FURTHER REFILLS 12/10 completed Not Available Not Available Not Available prednisone 20 mg tablet 4 tabs X 2 3 tabs X 3 days, 2 tabs x 3 days, 1 tab X 3days 06/10 completed Not Available Not Available Not Available glipizide ER 5 mg tablet, extended release 24 hr active Not Available Not Available Not Available pravastatin 80 mg tablet TAKE 1 TABLET BY MOUTH EVERYDAY AT BEDTIME active Not Available Not Available No t Available metformin 1,000 mg tablet TAKE 1 TABLET BY MOUTH TWICE A DAY active Not Available Not Available No t Available losartan 25 mg tablet TAKE 1 TABLET BY MOUTH EVERY DAY active Not Available Not Available No t Available naproxen 500 mg tablet Take 1 tablet twice a day by oral route for 15 days. active Not Available Not Available No t Available multivitami n active Not Available Not Available Not Available Vitamin D3 50 mcg (2,000 unit) capsule Take 1 capsule every day by oral route. active Not Available Not Available No t Available Afluria Qd 2018- (36 mos up)(PF)60 mcg (15 mcg x4)/0.5 mL IM syringe active Not Available Not Available N ot Available Vitals Date Recorded Body height Body mass index (BMI) Body weight Heart rate Oxygen saturation Oxygen saturation in Arterial blood by Pulse oximetry Systolic blood pressure Diastolic blood pressure Provider Name and Address Organization Details Last Updated DateTime 0 149.86 cm 29.5 kg/m2 98574.2 g 90 /min 99 % 99 % 144 mm[Hg] 82 mm[Hg] Evelin Avendaño [facility] 0 09:06:24 Date Recorded Body weight Body mass index (BMI) Body height Heart rate Oxygen saturation Oxygen saturation in Arterial blood by Pulse oximetry Systolic blood pressure Diastolic blood pressure Provider Name and Address Organization Details Last Updated DateTime 8 57945.0 5 g 29.4 kg/m2 149.86 cm 76 /min 98 % 98 % 130 mm[Hg] 74 mm[Hg] Yasmin [facility] 8 11:46:29 Date Recorded Body height Body mass index (BMI) Body weight Heart rate Oxygen saturation Oxygen saturation in Arterial blood by Pulse oximetry Systolic blood pressure Diastolic blood pressure Provider Name and Address Organization Details Last Updated DateTime 8 149.86 cm 29.7 kg/m2 75253.0 8 g 102 /min 98 % 98 % 130 mm[Hg] 70 mm[Hg] [facility] 8 13:32:31 Date Recorded Heart rate Provider Name an d Address Organization Details Last Updated DateTime 07/29/2018 80 /min Nara Berrios NP, S [address] [place] [address], [address], [facility] 07/29/2018 14:06:56 Date Recorded Body height Body mass index (BMI) Body weight Heart rate Oxygen saturation Oxygen saturation in Arterial blood by Pulse oximetry Systolic blood pressure Diastolic blood pressure Provider Name and Address Organization Details Last Updated DateTime 9 149.86 cm 29.7 kg/m2 68934.7 2 g 87 /min 99 % 99 % 132 mm[Hg] 70 mm[Hg] Evelin Avendaño [facility] 9 13:33:42 Social History Question Answer Notes LastModified by Organizat ion Details LastModified Time Tobacco Smoking Status Never Smoker Not Available [facility] 09/07/2020 03:36:24 What Was The Date Of Your Most Recent Tobacco Screening? 07/29/2018 [id number] Information not available 09/07/2020 Sex: Unknown Functional Status None recorded. Mental Status None recorded. Family History Nothing Reported. Medical History No medical history recorded. Gynecological HistoryNo gynecological history recorded. Obstetrics History GPAL:G 0 P 0 0 0 0 Immunizations Vaccine Type Date Status Note Provider Nam e and Address Organization Details Recorded Time Influenza, split virus, quadrivalent, preservative 0 [facility] Past Encounters Encounter ID Performer Location Encounter Start Date Encounter Closed Date Diagnosis/Indication Diagnosis SNOMED-CT Code Diagnosis ICD10 Code Diagnosis Note [id number] Nara Berrios NP, [facility] [address] [place] [address],[place] [address] 07/12/2018 11:35:22 07/12/2018 15:06:43 Ganglion cyst 47428169 M67.40 Essential hypertension 43727962 I10 Hypercholesterolemia 136 32235 E78.00 Pre-existi ng type 2 diabetes mellitus 333674812 E11.9 [id number] Nara Berrios NP, [facility] [address] [place] [address],[place] [address] 07/29/2018 13:27:22 07/29/2018 14:38:56 Bursitis of shoulder 093221611 M75.51 Calcific t endinitis of shoulder 87723674 M75.31 see above Pre-existi ng type 2 diabetes mellitus 454459749 E11.9 Be aware that BS's will be elevated by treatment above, while on presnisone Essential hypertension 37240374 I10 stable [id number] [facility] [address] [facility] [address],[place] [address] 06/10/2019 13:22:27 06/10/2019 14:12:20 Hypercholesterolemia 95851683 E78.00 Essential hypertension 41891232 I10 Type 2 alma betes mellitus 96734669 E11.9 [id number] Faith [facility] [address] [facility] [address],[place] [address] 12/10/2019 09:01:28 12/10/2019 09:47:14 Hypercholesterolemia 41574589 E78.00 all at goal Essential hypertension 57660593 I10 mildly elevated Type 2 alma betes mellitus 49217497 E11.9 a1c 7.5, due for repeat Pain in left knee 119385 3413 59796 M25.562 Pain of le ft shoulder joint 0774000334 2066848 M25.512 Health Concerns Section Related Observation LastModified by Organization Detai ls LastModified Time None Recorded Concern Status LastModified by Organization Details LastModified Time None Recorded Advance Directives Directive None Recorded Payers Encounter Date Sequence Insurance Name Policy Number Policy Hooker Covered Member ID Hooker Member ID Guarantor Name 07/12/2018 1 [facility] [facility] [place] [id number] Mayte Flanagan [id number] Mayte Flanagan 07/29/2018 1 [place] [facility] [place] [id number] Mayte Flanagan [id number] Mayte Flanagan 06/10/2019 1 [place] [facility] [place] [id number] Mayte Flanagan [id number] Mayte Flanagan 12/10/2019 1 [place] [facility] [place] [id number] Mayte Flanagan [id number] Mayte Flanagan Notes Date Note Type Note Provider Name a nd Address Organization Details Recorded Time 07/12/2018 text/html Feels good, chiara foy through divorce Bought new treadmill-will package pick up exercise Doing all ADL's without CP/SOB Careful with diet Has bump on forehead, getting larger, occasionaly tender, no drainage Nara Berrios NP, S [address] [place], [address], [facility] 07/12/2018 12:41:46 07/29/2018 text/html Has had mild rig ht shoulder pain for several months, gradually worsening, this a.m. 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 Denies fever, cough or SOB Nara Berrios NP, S [address] [place], [address], [facility] 07/29/2018 14:12:09 06/10/2019 text/html takes meds regularly noncompliant with f/u she does have eye exams year doesn't check blood sugars diet generally well controlled walks daily 12 system ROS negative except where noted above- denies: chest pain, palpitations, sob, ankle swelling, visual problems, hearing problems, muscle aches or pains, numbness or tingling extremities, abdominal pain, bowel issues, bladder issues, sexual dysfunction, abnormal bleeding, sx of sinus/respiratory infection , headaches, dizziness/lighthea dedness, rashes, or nail changes. Faith Nathaniel CINDYASA [address] [place], [address], [facility] 06/10/2019 14:10:27 12/10/2019 text/html takes meds regularly noncompliant with f/u she does have eye exams year doesn't check blood sugars diet generally well controlled walks daily wakes up often suddenly at 1-2 am and then it takes 30-45 minutes to fall back asleep, otherwise generally gets enough sleep left knee was bothersome and cracking and felt swollen on the inside, felt like the knee was stuck and it was painful to touch even and kind of just dealt with it, and it has improved gradually. she had a frozen shoulder about a year ago and was given prednisone, and now is feeling it in her left shoulder, no known injury, cant identify any overuse 12 system ROS negative except where noted above February ANTONIETTA Armstrong [address] [place] [address], [place], [address], [facility] 12/10/2019 09:45:13 OBGyn Episode No OBEpisode recorded.
== END 2024-12-01 08:22 | disposition home or self-care (01) ==
LOC: HO.HMGCX 08:21
PROVIDERS: PCP Internal Medicine; Visit Provider Nurse Practitioner Family
DX: N20.0 Calculus of kidney (principal)
CPT/HCPCS: 76775

== ENCOUNTER → 2024-12-01 08:23 | Outpatient (BNV) | payer OTHER, SELFPAY | PROVIDERS: PCP Internal Medicine; Visit Provider Nuclear Medicine | DX: N20.0 Calculus of kidney (principal) | CPT/HCPCS: 76775 ==

== ENCOUNTER → 2024-12-10 09:13 | Outpatient (BNVA) | payer OTHER, SELFPAY | PROVIDERS: PCP Internal Medicine; Visit Provider Nurse Practitioner Family | DX: N20.0 Calculus of kidney (principal) | CPT/HCPCS: 81003 ==

== ENCOUNTER 2025-02-07 09:29 | Outpatient (REF) | payer OTHER, SELFPAY ==
--- OUTSIDE RECORDS SUMMARY | 2025-02-07 09:32 | XMS_ITS | Data Portability ---
Author Organization [facility] Home Service Address [address] [place] [address] Assessment No assessment recorded. Plan of Treatment Reminders Order Date Submit Date Provider Last Modified By Organization Details Last Modified Time Details Appointments None recorded. Lab HbA1c (hemoglobi n A1c), blood 2019 [facility], [address] [place] [address], 31541, 0 09:22:14 HbA1c (hemoglobi n A1c), blood 2018 019 [facility], [address] [place] [address], 74417, 9 08:25:15 microalbum in, urine 2018 019 [facility], [address] [place] [address], 62123, 9 08:25:15 HbA1c (hemoglobi n A1c), blood 2018 [facility], [address] [place] [address], 36444, 9 08:25:15 microalbum in, urine 2018 [facility], [address] [place] [address], 78552, 9 08:25:15 lipid panel, blood 2018 019 [facility], [address] [place] [address], 89950, 9 08:25:15 lipid panel, blood 2018 020 [facility], [address] [place] [address], 97790, 9 08:25:15 CMP, serum or plasma 2018 019 [facility], [address] [place] [address], 50493, 9 08:25:15 CMP, serum or plasma 2018 020 [facility], [address] [place] [address], 18071, 9 08:25:15 glycohemog lobin, total, blood 2017 018 [facility], [address] [place] [address], 02319, 8 08:58:58 microalbum in/creatin ine, ratio panel, urine 2017 018 [facility], [address] [place] [address], 24911, 8 08:58:59 TSH + free T4, serum [address] [facility], [address] [place] [address], 39289, 8 06:53:08 glycohemog lobin, total, blood [address] [facility], [address] [place] [address], 36095, 9 13:29:25 glycohemog lobin, total, blood 2018 019 [facility] [place] [address] Laboratory, [address] [place] [address], 09025, 9 07:26:13 glycohemog lobin, total, blood 2018 019 [facility], [address] [place] [address], 43085, 9 08:16:26 glycohemog lobin, total, blood [email or web address] [place] [address] Laboratory, [address] [place] [address], 63887, 9 10:21:54 glycohemog lobin, total, blood 2018 [email or web address] [place] [address] Laboratory, [address] [place] [address], 17743, 0 08:38:34 glycohemog lobin, total, blood 2019 020 [email or web address] 10 [facility], [address] [place] [address], 89932, 0 08:16:32 glycohemog lobin, total, blood 2019 020 [email or web address] 10 [facility], [address] [place] [address], 32606, 0 08:44:47 glycohemog lobin, total, blood 2019 020 [facility], [address] [place] [address], 73779, 0 08:50:44 glycohemog lobin, total, blood 2019 021 [facility], [address] [place] [address], 39073, 1 09:56:31 lipid panel, blood 2017 018 [facility], [address] [place] [address], 11701, 8 08:58:58 CBC 2017 018 [facility], [address] [place] [address], 02949, 8 08:58:59 lipid panel, blood [address] [facility], [address] [place] [address], 70060, 9 07:26:13 lipid panel, blood [address] [facility], [address] [place] [address], 94317, 9 09:07:59 lipid panel, blood 2018 020 [email or web address] 10 [facility], [address] [place] [address], 23796, 0 08:16:32 lipid panel, blood 2019 020 [facility]ner [facility], [address] [place] [address], 49150, 0 08:50:44 CMP, serum or plasma 2017 018 [facility], [address] [place] [address], 64401, 8 08:58:58 CMP, serum or plasma [address] [facility], [address] [place] [address], 63720, 9 13:29:25 CMP, serum or plasma [address] [facility], [address] [place] [address], 42282, 9 07:26:13 CMP, serum or plasma 2018 019 [facility], [address] [place] [address], 61059, 9 08:16:25 CMP, serum or plasma [address] [facility], [address] [place] [address], 16293, 9 10:21:54 CMP, serum or plasma 2018 [email or web address] [place] [address] Laboratory, [address] [place] [address], 97263, 0 08:38:06 CMP, serum or plasma 2019 [email or web address] [place] [address] Laboratory, [address] [place] [address], 12942, 0 08:16:32 CMP, serum or plasma 2019 [email or web address] [place] [address] Laboratory, [address] [place] [address], 62442, 0 08:44:47 CMP, serum or plasma 2019 020 [facility], [address] [place] [address], 96511, 0 08:50:44 CMP, serum or plasma 2019 021 [facility], [address] [place] [address], 41581, 1 09:56:31 Referral orthopedic referral 2019 020 danielle Ludwig MD, [address], [place], [address], 0 08:17:18 physical therapist referral 2017 018 [facility], [address] [place] [address], [place], [address], 8 15:00:55 general surgeon referral 2017 018 DENZEL Diamond MD, [address] [place] [address] [place], [address], 8 15:50:23 Procedures None recorded. Surgeries None recorded. Imaging XR, knee 2019 020 [facility], [place], [address], 0 08:17:31 Medication Orders naproxen 500 mg tablet 2019 020 [id number], [address] [place], [address], 0 09:44:02 glipizide ER 5 mg tablet, extended release 24 hr 2018 019 [id number], [address] [place], [address], 9 14:03:50 metformin 1,000 mg tablet 2018 019 [id number], [address] [place], [address], 9 14:03:51 pravastati n 80 mg tablet 2018 019 [facility], [address] [place], [address], 9 14:03:50 losartan 25 mg tablet 2018 019 [facility], [address] [place], [address], 9 14:03:51 prednisone 20 mg tablet 2017 018 [facility], [address] [facility] [place], [address], 9 13:32:16 Patient TargetsNo targets recorded. Patient Instructions Encounter Date Encounter Id Patient Instructions Last Modified By Organization Details Last Modified Time 07/12/2018 [id number] Continue to work on healthy diet and exercise xavier Not available 07/12/2018 12:41:27 06/10/2019 [id number] high blood pressure: care instructions Not available 06/10/2019 14:03:48 learning about high blood pressure Not available 06/10/2019 14:03:48 12/10/2019 [id number] shoulder stretches: exercises Not available 12/10/2019 09:44:00 high blood pressure: care instructions Not available 12/10/2019 09:31:57 learning about high blood pressure Not available 12/10/2019 09:31:57 Reason for Referral [...] eral No observ ation record ed. [email or web address] [facility] [address] [place] [address], [place], [address], 11/21/2019 10:55:13 01/02/20 20 01/02/2020 XR, knee No observ ation record ed. [facility] [address] [place] [address], 47181, 01/05/2020 09:50:54 Result Notes None recorded. Problems Name Problem SNOMED Code Status Onset Date Resolution Date Notes Provider Name and Address Organization Details Recorded Time Pre-existing type 2 diabetes mellitus 643206397 Active 2017 Not Available [facility] 0 02:04:29 Hypercholeste rolemia 95262075 Active 2017 Not Available [facility] 0 02:04:29 Essential hypertension 33124581 Active 2017 Not Available [facility] 0 02:04:29 Type 2 diabetes mellitus 67825609 Active 2018 Not Available [facility] 0 02:04:29 Problem Notes None recorded. Procedures Surgical History None recorded. Imaging Results Imaging Date Name Status LastModified by Organiz ation Details LastModified Time 11/13/2018 MAMMO, screening, digital, bilateral completed xavier Information not available 11/22/2018 13:25:57 11/19/2019 MAMMO, screening, bilateral completed [email or web address] [facility] [address] [place] [address], 91114, 11/21/2019 10:55:13 01/02/2020 XR, knee completed [facility] [address] [place] [address], 08277, 01/05/2020 09:50:54 Procedure Notes None recorded. Medical [...] Updated DateTime 0 149.86 cm 29.5 kg/m2 17512.2 g 90 /min 99 % 99 % 144 mm[Hg] 82 mm[Hg] Evelin Avendaño [facility] 0 09:06:24 Date Recorded Body weight Body mass index (BMI) Body height Heart rate Oxygen saturation Oxygen saturation in Arterial blood by Pulse oximetry Systolic blood pressure Diastolic blood pressure Provider Name and Address Organization Details Last Updated DateTime 8 41158.0 5 g 29.4 kg/m2 149.86 cm 76 /min 98 % 98 % 130 mm[Hg] 74 mm[Hg] Yasmin [facility] 8 11:46:29 Date Recorded Body height Body mass index (BMI) Body weight Heart rate Oxygen saturation Oxygen saturation in Arterial blood by Pulse oximetry Systolic blood pressure Diastolic blood pressure Provider Name and Address Organization Details Last Updated DateTime 8 149.86 cm 29.7 kg/m2 49243.0 8 g 102 /min 98 % 98 % 130 mm[Hg] 70 mm[Hg] [facility] 8 13:32:31 Date Recorded Heart rate Provider Name an d Address Organization Details Last Updated DateTime 07/29/2018 80 /min Nara Berrios NP, S [address] [place] [address], [address], [facility] 07/29/2018 14:06:56 Date Recorded Body height Body mass index (BMI) Body weight Heart rate Oxygen saturation Oxygen saturation in Arterial blood by Pulse oximetry Systolic blood pressure Diastolic blood pressure Provider Name and Address Organization Details Last Updated DateTime 9 149.86 cm 29.7 kg/m2 97367.7 2 g 87 /min 99 % 99 % 132 mm[Hg] 70 mm[Hg] Evelin Avendaño [facility] 9 13:33:42 Social History Question Answer Notes LastModified by Organizat ion Details LastModified Time Tobacco Smoking Status Never Smoker Not Available [facility] 09/07/2020 03:36:24 What Was The Date Of Your Most Recent Tobacco Screening? 07/29/2018 [id number] Information not available 09/07/2020 Sex: Unknown Functional Status None recorded. Mental Status None recorded. Family History Nothing Reported. Medical History No medical history recorded. Gynecological HistoryNo gynecological history recorded. Obstetrics History GPAL:G 0 P 0 0 0 0 Immunizations Vaccine Type Date Status Note Provider Nam e and Address Organization Details Recorded Time Influenza, split virus, quadrivalent, preservative 0 completed [facility] 08:[facility]15 Past Encounters Encounter ID Performer Location Encounter Start Date Encounter Closed Date Diagnosis/Indication Diagnosis SNOMED-CT Code Diagnosis ICD10 Code Diagnosis Note [id number] Nara Berrios NP, [facility] [address] [place] [address],[place] [address] 07/12/2018 11:35:22 07/12/2018 15:06:43 Ganglion cyst 42506090 M67.40 Essential hypertension 69808380 I10 Hypercholesterolemia 136 01581 E78.00 Pre-existi ng type 2 diabetes mellitus 442080349 E11.9 [id number] Nara Berrios NP, [facility] [address] [place] [address],[place] [address] 07/29/2018 13:27:22 07/29/2018 14:38:56 Bursitis of shoulder 989502863 M75.51 Calcific t endinitis of shoulder 53159904 M75.31 see above Pre-existi ng type 2 diabetes mellitus 423326336 E11.9 Be aware that BS's will be elevated by treatment above, while on presnisone Essential hypertension 48041599 I10 stable [id number] [facility] [address] [facility],[place] [address] 06/10/2019 13:22:27 06/10/2019 14:12:20 Hypercholesterolemia 95532044 E78.00 Essential hypertension 34775753 I10 Type 2 alma betes mellitus 36931657 E11.9 [id number] [facility] [address],[place] [address] 12/10/2019 09:01:28 12/10/2019 09:47:14 Hypercholesterolemia 43045922 E78.00 all at goal Essential hypertension 05156337 I10 mildly elevated Type 2 alma betes mellitus 63370195 E11.9 a1c 7.5, due for repeat Pain in left knee 623145 5964 95101 M25.562 Pain of le ft shoulder joint 7514782400 9195593 M25.512 Health Concerns Section Related Observation LastModified by Organization Detai ls LastModified Time None Recorded Concern Status LastModified by Organization Details LastModified Time None Recorded Advance Directives Directive None Recorded Payers Encounter Date Sequence Insurance Name Policy Number Policy Hooker Covered Member ID Hooker Member ID Guarantor Name 07/12/2018 1 [place] [employer] [place] [id number] Mayte Flanagan [id number] Mayte Flanagan 07/29/2018 1 [place] [employer] [place] [id number] Mayte Flanagan [id number] Mayte Flanagan 06/10/2019 1 [place] [employer] [place] [id number] Mayte Flanagan [id number] Mayte Flanagan 12/10/2019 1 [place] [employer] [place] [id number] Mayte Flanagan [id number] Mayte Flanagan Notes Date Note Type Note Provider Name a nd Address Organization Details Recorded Time 07/12/2018 text/html Feels good, chiara foy through divorce 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 ANTONIETTA Vasquez [address] [place], [address], [facility] 06/10/2019 14:10:27 12/10/2019 [...] except where noted above February ANTONIETTA Armstrong [address] [place] [address], [place], [address], [place] [facility] 12/10/2019 09:45:13 OBGyn Episode No OBEpisode recorded.
== END 2025-02-07 09:30 | disposition home or self-care (01) ==
LOC: HO.MAMMO 09:29
PROVIDERS: PCP Internal Medicine; Visit Provider Internal Medicine
DX: Z12.31 Encounter for screening mammogram for malignant neoplasm of breast (principal)
CPT/HCPCS: 77063; 77067

== ENCOUNTER → 2025-02-07 09:45 | Outpatient (BNV) | payer OTHER, SELFPAY | PROVIDERS: PCP Internal Medicine; Visit Provider Internal Medicine | DX: Z12.31 Encounter for screening mammogram for malignant neoplasm of breast (principal) | CPT/HCPCS: 77063; 77067 ==

== ENCOUNTER 2025-03-27 07:36 | Outpatient (REF) | payer OTHER, SELFPAY ==
--- OUTSIDE RECORDS SUMMARY | 2025-03-27 07:39 | XMS_ITS | Data Portability ---
Author Organization [facility] Home Service Address [address] [place] [address] Assessment No assessment recorded. Plan of Treatment Reminders Order Date Submit Date Provider Last Modified By Organization Details Last Modified Time Details Appointments None recorded. Lab HbA1c (hemoglobi n A1c), blood 2019 [facility], [address] [place] [address], [address], 0 09:22:14 HbA1c (hemoglobi n A1c), blood 2018 019 [facility], [address] [place] [address], 85140, 9 08:25:15 microalbum in, urine 2018 019 [facility], [address] [place] [address], 04699, 9 08:25:15 HbA1c (hemoglobi n A1c), blood 2018 [facility], [address] [place] [address], 65604, 9 08:25:15 microalbum in, urine 2018 [facility], [address] [place] [address], 52528, 9 08:25:15 lipid panel, blood 2018 019 [facility], [address] [place] [address], 27554, 9 08:25:15 lipid panel, blood 2018 020 [facility], [address] [place] [address], 75881, 9 08:25:15 CMP, serum or plasma 2018 019 [facility], [address] [place] [address], 81196, 9 08:25:15 CMP, serum or plasma 2018 020 [facility], [address] [place] [address], 22569, 9 08:25:15 glycohemog lobin, total, blood 2017 018 [facility], [address] [place] [address], 947[address], 8 08:58:58 microalbum in/creatin ine, ratio panel, urine 2017 018 [facility], [address] [place] [address], 83804, 8 08:58:59 TSH + free T4, serum [address] [facility], [address] [place] [address], 34059, 8 06:53:08 glycohemog lobin, total, blood [address] [facility], [address] [place] [address], 72100, 9 13:29:25 glycohemog lobin, total, blood 2018 019 [facility] [place] [address] Laboratory, [address] [place] [address], 98458, 9 07:26:13 glycohemog lobin, total, blood 2018 019 [facility], [address] [place] [address], 26806, 9 08:16:26 glycohemog lobin, total, blood [email or web address] [place] [address] Laboratory, [address] [place] [address], 05967, 9 10:21:54 glycohemog lobin, total, blood 2018 [email or web address] [place] [address] Laboratory, [address] [place] [address], 18684, 0 08:38:34 glycohemog lobin, total, blood 2019 020 [email or web address] 10 [facility], [address] [place] [address], 28814, 0 08:16:32 glycohemog lobin, total, blood 2019 020 [email or web address] 10 [facility], [address] [place] [address], 39842, 0 08:44:47 glycohemog lobin, total, blood 2019 020 [facility], [address] [place] [address], 46795, 0 08:50:44 glycohemog lobin, total, blood 2019 021 [facility], [address] [place] [address], 44444, 1 09:56:31 lipid panel, blood 2017 018 [facility], [address] [place] [address], 90855, 8 08:58:58 CBC 2017 018 [facility], [address] [place] [address], 03580, 8 08:58:59 lipid panel, blood [address] [facility], [address] [place] [address], 28058, 9 07:26:13 lipid panel, blood [address] [facility], [address] [place] [address], 84805, 9 09:07:59 lipid panel, blood 2018 020 [email or web address] 10 [facility], [address] [place] [address], 71074, 0 08:16:32 lipid panel, blood 2019 020 [email or web address] [facility], [address] [place] [address], 18630, 0 08:50:44 CMP, serum or plasma 2017 018 [facility], [address] [place] [address], 42092, 8 08:58:58 CMP, serum or plasma [address] [facility], [address] [place] [address], 99321, 9 13:29:25 CMP, serum or plasma [address] [facility], [address] [place] [address], 12441, 9 07:26:13 CMP, serum or plasma 2018 019 [facility], [address] [place] [address], 52507, 9 08:16:25 CMP, serum or plasma [address] [facility], [address] [place] [address], 29673, 9 10:21:54 CMP, serum or plasma 2018 [email or web address] [place] [address] Laboratory, [address] [place] [address], 92905, 0 08:38:06 CMP, serum or plasma 2019 [email or web address] [place] [address] Laboratory, [address] [place] [address], 40330, 0 08:16:32 CMP, serum or plasma 2019 [email or web address] [place] [address] Laboratory, [address] [place] [address], 26961, 0 08:44:47 CMP, serum or plasma 2019 020 [facility], [address] [place] [address], 32084, 0 08:50:44 CMP, serum or plasma 2019 021 [facility], [address] [place] [address], 02309, 1 09:56:31 Referral orthopedic referral 2019 020 danielle Ludwig MD, [address], [place], [address], 0 08:17:18 physical therapist referral 2017 018 [facility], [address] [place] [address], [place], [address], 8 15:00:55 general surgeon referral 2017 018 DENZEL Diamond MD, [address] [place] [address] [place], [address], 8 15:50:23 Procedures None recorded. Surgeries None recorded. Imaging XR, knee 2019 020 [facility], [place], [address], 0 08:17:31 Medication Orders naproxen 500 mg tablet 2019 020 [id number], [address] [place], [address], 0 09:44:02 glipizide ER 5 mg tablet, extended release 24 hr 2018 019 [facility], [address] [place], [address], 9 14:03:50 metformin 1,000 mg tablet 2018 019 [facility], [address] [place], [address], 9 14:03:51 pravastati n 80 mg tablet 2018 019 [facility], [address] [place], [address], 9 14:03:50 losartan 25 mg tablet 2018 019 [facility], [address] [place], [address], 9 14:03:51 prednisone 20 mg tablet 2017 018 [facility], [address] [facility] [place], [address], 9 13:32:16 Patient TargetsNo targets recorded. Patient Instructions Encounter Date Encounter Id Patient Instructions Last Modified By Organization Details Last Modified Time 07/12/2018 [id number] Continue to work on healthy diet and exercise xavier Not available 07/12/2018 12:41:27 06/10/2019 [id number] high blood pressure: care instructions Not available 06/10/2019 14:03:48 learning about high blood pressure Not available 06/10/2019 14:03:48 12/10/2019 [id number] shoulder stretches: exercises Not available 12/10/2019 09:44:00 [...] Pain in left knee Referring Physician: [facility], Encounter Date: 12/10/2019 Results Created Date Observation Date Name Description Value Unit Range Abnormal Flag Note LastModifiedBy Organization Detail LastModifiedTime 11/22/19 19 11/13/2018 juanjose ESQUIVEL, digit al, bilat eral No observ ation record ed. [email or web address] Not Available 2018 13:25:57 11/21/1911/19/2019 juanjose ESQUIVEL, bilat eral No observ ation record ed. [email or web address] [facility] [address] [place] [address], [place], [address], 11/21/2019 10:55:13 01/02/20 20 01/02/2020 XR, knee No observ ation record ed. [facility] [address] [place] [address], 64[address], 01/05/2020 09:50:54 Result Notes None recorded. Problems Name Problem SNOMED Code Status Onset Date Resolution Date Notes Provider Name and Address Organization Details Recorded Time Pre-existing type 2 diabetes mellitus 034517826 Active 2017 Not Available [facility] 0 02:04:29 Hypercholeste rolemia 13150324 Active 2017 Not Available [facility] 0 02:04:29 Essential hypertension 52255206 Active 2017 Not Available [facility] 0 02:04:29 Type 2 diabetes mellitus 44171984 Active 2018 Not Available [facility] 0 02:04:29 Problem Notes None recorded. Procedures Surgical History None recorded. Imaging Results Imaging Date Name Status LastModified by Organiz ation Details LastModified Time 11/13/2018 MAMMO, screening, digital, bilateral completed [email or web address] Information not available 11/22/2018 13:25:57 11/19/2019 MAMMO, screening, bilateral completed [email or web address] [facility] [address] [place] [address], 17455, 11/21/2019 10:55:13 01/02/2020 XR, knee completed [facility] [address] [place] [address], 022[address], 01/05/2020 09:50:54 Procedure Notes None recorded. Medical [...] Updated DateTime 0 149.86 cm 29.5 kg/m2 58745.2 g 90 /min 99 % 99 % 144 mm[Hg] 82 mm[Hg] Evelin Avendaño [facility] 0 09:06:24 Date Recorded Body weight Body mass index (BMI) Body height Heart rate Oxygen saturation Oxygen saturation in Arterial blood by Pulse oximetry Systolic blood pressure Diastolic blood pressure Provider Name and Address Organization Details Last Updated DateTime 8 25327.0 5 g 29.4 kg/m2 149.86 cm 76 /min 98 % 98 % 130 mm[Hg] 74 mm[Hg] Yasmin [facility] 8 11:46:29 Date Recorded Body height Body mass index (BMI) Body weight Heart rate Oxygen saturation Oxygen saturation in Arterial blood by Pulse oximetry Systolic blood pressure Diastolic blood pressure Provider Name and Address Organization Details Last Updated DateTime 8 149.86 cm 29.7 kg/m2 63280.0 8 g 102 /min 98 % 98 % 130 mm[Hg] 70 mm[Hg] [facility] 8 13:32:31 Date Recorded Heart rate Provider Name an d Address Organization Details Last Updated DateTime 07/29/2018 80 /tracy Berrios NP, [address] [place], [address], [facility] 07/29/2018 14:06:56 Date Recorded Body height Body mass index (BMI) Body weight Heart rate Oxygen saturation Oxygen saturation in Arterial blood by Pulse oximetry Systolic blood pressure Diastolic blood pressure Provider Name and Address Organization Details Last Updated DateTime 9 149.86 cm 29.7 kg/m2 76340.7 2 g 87 /min 99 % 99 % 132 mm[Hg] 70 mm[Hg] Evelin Kateryna [facility] Internal [facility] 9 13:33:42 Social History Question Answer Notes LastModified by Organizat ion Details LastModified Time Tobacco Smoking Status Never Smoker Not Available [facility] 09/07/2020 03:36:24 What Was The Date Of Your Most Recent Tobacco Screening? 07/29/2018 [id number] Information not available 09/07/2020 Sex: Unknown Functional Status None recorded. Mental Status None recorded. Family History Nothing Reported. Medical History No medical history recorded. Gynecological HistoryNo gynecological history recorded. Obstetrics History GPAL:G 0 P 0 0 0 0 Immunizations Vaccine Type Date Status Note Provider Nam e and Address Organization Details Recorded Time Influenza, split virus, quadrivalent, preservative 0 [facility] Past Encounters Encounter ID Performer Location Encounter Start Date Encounter Closed Date Diagnosis/Indication Diagnosis SNOMED-CT Code Diagnosis ICD10 Code Diagnosis Note [id number] Albert Rebollar [facility] [address] [facility],[place] [address] 07/12/2018 11:35:22 07/12/2018 15:06:43 Ganglion cyst 61400993 M67.40 Essential hypertension 44420998 I10 Hypercholesterolemia 136 42369 E78.00 Pre-existi ng type 2 diabetes mellitus 107810263 E11.9 [id number] Albert Rebollar [facility] [address] [facility],[place] [address] 07/29/2018 13:27:22 07/29/2018 14:38:56 Bursitis of shoulder 208392353 M75.51 Calcific t endinitis of shoulder 43592080 M75.31 see above Pre-existi ng type 2 diabetes mellitus 274763308 E11.9 Be aware that BS's will be elevated by treatment above, while on presnisone Essential hypertension 34205510 I10 stable [id number] Albert Rebollar [facility] [address] [facility] [address],[place] [address] 06/10/2019 13:22:27 06/10/2019 14:12:20 Hypercholesterolemia 46311336 E78.00 Essential hypertension 42272070 I10 Type 2 alma betes mellitus 82205680 E11.9 [id number] Albert Zazueta Smooth [facility] [address] [facility] [address] [place] [address] 12/10/2019 09:01:28 12/10/2019 09:47:14 Hypercholesterolemia 56443175 E78.00 all at goal Essential hypertension 81657767 I10 mildly elevated Type 2 alma betes mellitus 22959164 E11.9 a1c 7.5, due for repeat Pain in left knee 103370 1110 02478 M25.562 Pain of le ft shoulder joint 5189279275 1504786 M25.512 Health Concerns Section Related Observation LastModified by Organization Detai ls LastModified Time None Recorded Concern Status LastModified by Organization Details LastModified Time None Recorded Advance Directives Directive None Recorded Payers Encounter Date Sequence Insurance Name Policy Number Policy Hooker Covered Member ID Hooker Member ID Guarantor Name 07/12/2018 1 [place] [facility] [id number] Mayteabbie Flanagan [id number] Mayte Flanagan 07/29/2018 1 [place] [facility] [id number] aMyte Flanagan [id number] Mayte Flanagan 06/10/2019 1 [place] [facility] [id number] Mayte Flanagan [id number] Mayte Flanagan 12/10/2019 1 [place] [facility] [id number] Mayte Flanagan [id number] Mayte Flanagan Notes Date Note Type Note Provider Name a nd Address Organization Details Recorded Time 07/12/2018 text/html Feels good, chiara g through divorce Bought new treadmill-will package pick up exercise Doing all ADL's without CP/SOB Careful with diet Has bump on forehead, getting larger, occasionaly tender, no drainage Nara Berrios NP, [address] [place], [address], [facility] 07/12/2018 12:41:46 07/29/2018 text/html Has had mild rig ht shoulder pain for several months, gradually worsening, this a.m. 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 ANTONIETTA Vasquez [address] [place], [address], [facility] 06/10/2019 14:10:27 12/10/2019 text/html takes [...] except where noted above February ANTONIETTA Armstrong [address] [place] [address], [place], [address], [facility] 12/10/2019 09:45:13 OBGyn Episode No OBEpisode recorded.
[2025-03-27 10:14] LABS: Estimated Average Glucose 163 mg/dL; Hemoglobin A1C 207.5331 umol/L; Hemoglobin A1c % 7.3 % (<6.0)
[2025-03-27 10:36] LABS: Alanine Aminotransferase 17 U/L (0-31); Anion Gap 14 (12-20); Aspartate Amino Transferase 26 U/L (5-31); Blood Urea Nitrogen 13 mg/dL (9-16); Calcium 9.3 mg/dL (8.4-10.2); Carbon Dioxide 27 mmol/L (22-29); Chloride 106 mmol/L (96-108); Cholesterol 141 mg/dL (<200); Estimated Glomerular Filt Rate > 60; Glucose Fasting 150 mg/dL (60-99); HDL Cholesterol 35 mg/dL (>40); LDL Cholesterol Calculated 81 mg/dL (<100); Potassium 4.7 mmol/L (3.3-5.1); Sodium 142 mmol/L (135-145); Triglycerides 128 mg/dL (<150)
[2025-03-27 10:54] LABS: Vitamin D 25-OH Total 125.3 ng/mL (>30)
[2025-03-27 12:29] LABS: Creatinine Urine 59.39 mg/dL; Microalbum/Creatinine Ratio Ur 11.7 ug/mg cr (<30)
== END 2025-03-27 07:37 | disposition home or self-care (01) ==
LOC: HO.HMGCLDS 07:36
PROVIDERS: PCP Internal Medicine; Visit Provider Internal Medicine
DX: E11.65 Type 2 diabetes mellitus with hyperglycemia (principal); E89.40 Asymptomatic postprocedural ovarian failure; I10 Essential (primary) hypertension; E78.5 Hyperlipidemia, unspecified
CPT/HCPCS: 36415; 80048; 80061; 82043; 82306; 82570; 83036; 84450; 84460

== ENCOUNTER 2025-03-31 08:21 | Outpatient (AMB) | payer BC, SELFPAY ==
--- NOTE | 2025-03-31 08:41 | MHC.PC.OV ---
Vital Signs 03/31/25 08:56 Height 4 ft 11 in Weight 140 lb BMI 28.3 BP 124/64 Blood Pressure Location Rt brachial Position Sitting Respiration 12 Pulse 99 Pulse Source Pulse Oximeter Temp 97.5 F Temp Source Oral Pulse Oximetry (%) 97 Oxygen Delivery Method Room Air Intake Visit Reasons: PE Intake Note: Pt is here today for her PE: Last mammogram 02/07/25, colonoscopy 04/05/15 Allergies No Known Allergies Allergy (Verified 03/31/25 09:05) Medication List - Last Reconciled 03/31/25 by Catalina Tavares MD cholecalciferol (vitamin D3) 50 mcg PO DAILY cinnamon bark (Cinnamon) 1,000 mg PO DAILY empagliflozin 25 mg PO QAM glipizide ER 10 mg (2 x 5 mg) PO BID 90 days losartan 50 mg PO DAILY metformin 1,000 mg PO BID mv-mn-folic ac-vit K-herb 289 800-100 mcg (Alive Once Daily Women 50 Plus) tabs PO omega 6-aln-kla-fish oil 60-90-500 mg (Fish Oil) 1 cap PO DAILY omeprazole 20 mg PO DAILY 10 days pravastatin 80 mg PO DAILY Tobacco use date assessed: 03/31/25 Dental Screening Dental Screen Date: 03/31/25 Did you have a dental visit in the last 12 months?: Yes Did you have a dental problem in the last 6 months where you did not have access to dental care?: No Was dental information given to patient?: Patient has dentist HPI PE HPI Details - 59-year-old female with history of diabetes mellitus, dyslipidemia, surgical menopause, hypertension, history of nephrolithiasis presenting today for her physical exam - She reports blood glucose levels increased during the winter, now stabilized with Jardiance combined with metformin. - She is contemplating medication adjustments due to long-term glipizide use. - Lipid panel shows improved triglycerides from 198 to 128, but troubling reduction in HDL (38 to 35). - vitamin-D level is slightly elevated -has been trying to lose weight, compliant with adhering to healthy eating habits and regular exercise. - has an Active lifestyle , with newly purchased rowing machine to increase physical activity. - She is employed and maintaining stable weight at 140 lbs. - Dietary habits indicate a fondness for sweets due to childhood experiences; efforts made to moderate indulgence. - Keen on weight management, particularly aimed at abdominal region improvement. - Recalled childhood diet's impact on present-day preferences influencing diabetes management discussions. -she is up-to-date with her screening mammogram, last colonoscopy was in 2014 due again this year [facility] Medical History (Updated 03/31/25 @ 09:05 by Catalina Tavares MD) Dermatochalasis of both eyelids Hx of acute otitis media Nephrolithiasis Osteoarthritis of left knee Diabetes mellitus with hyperglycemia, without long-term current use of insulin Uterine fibroid Surgical menopause Dyslipidemia Essential hypertension Surgical History History of blepharoplasty History of partial hysterectomy Family History Father Diabetes Hypertension Pacemaker Stroke Mother No problems noted. Brother Diabetes Heart disease Brother Mental health disorder Sister Family hx-anemia Maternal Uncle Substance use disorder Social History Housing: House Alcohol intake: never Comment: medicated, see MAR Patient Tobacco Use Status: Never used Tobacco e-Cigarette/Vaping Use: Never Used service: No Current occupational status: employed Cognitive needs: No Hearing needs: No Vision needs: Yes Questionnaire PHQ-9 Over the last 2 weeks, how often have you been bothered by any of the following problems? 1. Little interest or pleasure in doing things: not at all 2. Feeling down, depressed, or hopeless: not at all 3. Trouble falling or staying asleep, or sleeping too much: not at all 4. Feeling tired or having little energy: not at all 5. Poor appetite or overeating: not at all 6. Feeling bad about yourself - or that you are a failure or have let yourself or your family down: not at all 7. Trouble concentrating on things, such as reading the newspaper or watching television: not at all 8. Moving or speaking so slowly that other people could have noticed. Or the opposite - being so fidgety or restless that you have been moving around a lot more than usual: not at all 9. Thoughts that you would be better off or of hurting yourself in some way: not at all Total score: 0 Depression Screening Interpretation: Negative Depression Screening Done: Yes 59359 - PHQ-9 Billing: Yes Source: Developed by Drs. Nael Antonio, Zeina Jaime, Willam Ochoa and colleagues, with an educational maría elena from [employer]. Thrive Questionnaire Date Thrive assessed: 07/10/24 I am a: Patient What is your living situation today?: I have a steady place to live Within the past 12 months, did the food you bought not last and you didn't have the money to get more?: Never true Within the past 12 months, did you worry whether your food would run out before you got money to buy more?: Never true Do you have trouble paying for medicines?: No Do you have trouble getting transportation to medical appointments?: No Do you have trouble paying your heating and electricity bill?: No Do you have trouble taking care of your child, family member or friend?: No Do you have trouble with day-to-day activities such as bathing, preparing meals, shopping, managing finances, etc.?: No Are you currently unemployed and looking for a job?: No Are you interested in more education?: No Please select the resources that you would like help with: None Currently or been in a relationship where the following occur: No concerns reported THRIVE Score: 0 AUDIT C Alcohol Use Questionnaire (AUDIT-C) 1. How often do you have a drink containing alcohol?: Monthly or less 2. How many drinks containing alcohol do you have on a typical day when you are drinking?: 1 or 2 3. How often do you have six or more drinks on one occasion?: Never Total Score: 1 ALMITA-7 AMB Questionnaire ALMITA-7 Date ALMITA - 7 assessed: 03/31/25 Feeling nervous, anxious, or on edge: 0 = Not at all Not being able to stop or control worryin = Not at all Worrying too much about different things: 0 = Not at all Trouble relaxin = Not at all Being so restless that it is hard to sit still: 0 = Not at all Becoming easily annoyed or irritable: 0 = Not at all Feeling afraid as if something awful might happen: 0 = Not at all Total ALMITA-7 score (0-4 normal; 5-9 mild; 10-14 moderate; 15-21 severe): 0 Source: Developed by Drs. Nael Antonio, Zeina Jaime, Willam Ochoa and colleagues, with an educational maría elena from [employer]. ALMITA-7 Assessment Billing ALMITA-7 Assessment Tool: ALMITA-7 Assessment 62355 Review of Systems Eyes Details: Sees Dr. Fu for her diabetes retinopathy screening, up-to-date, mild retinopathy seen OD 03/09/2025 Reports no additional complaints ENT Reports no additional complaints Card Reports as per HPI Resp Reports no additional complaints GI Reports no additional complaints Reports as per HPI Musc Reports as per HPI Skin/Breast Denies breast swelling, Denies breast pain, Denies breast mass and Denies rash Neuro Reports no additional complaints Psych Reports no additional complaints Endo Reports as per HPI Bro/Lymph Reports no additional complaints Aller/Immun Reports no additional complaints Physical exam (Primary Care) Vital Signs: Last Vital Signs Temp 97.5 F 03/31/25 08:56 Pulse 99 03/31/25 08:56 Resp 12 03/31/25 08:56 BP 124/64 03/31/25 08:56 Pulse Ox 97 03/31/25 08:56 Oxygen Delivery Method Room Air 03/31/25 08:56 BMI result Body Mass Index 28.3 Tobacco/Smoking Status: Tobacco use Status Tobacco use date assessed 03/31/25 03/31/25 09:02 Patient Tobacco Use Status Never used Tobacco 03/31/25 08:42 e-Cigarette/Vaping Use Never Used 03/31/25 08:42 PHQ-9: PHQ-9 Score PHQ-9: Total score 0 03/31/25 10:18 Depression Screening Interpretation: Negative Thrive Assessment: Date of Thrive Assessment Date Thrive assessed 07/10/24 03/31/25 08:42 Currently or been in a relationship where the following occur: No concerns reported Const Other: Alert oriented x3, no acute distress noted ambulatory normal gait Orientation/consciousness: patient oriented x3 HENMT Ears: TM's normal bilaterally and EAC's normal General nose exam: Normal external nose present Face and sinus: Yes face symmetric Mouth: Normal oral and palatal mucosa present and moist mucous membranes Eyes General: appearance normal, both eyes and all related structures Neck Neck: Yes no lymphadenopathy and Yes supple Resp Auscultation: clear to auscultation bilaterally Cardio Other: S1-S2 present regular rate and rhythm GI Palpation (GI): Soft to palpation, nontender, no guarding and no masses General: Yes no CVA tenderness Back/Spine/Pelvis Back: no CVA tenderness and No back tenderness Skin General skin exam: no rashes or lesions noted Neuro General: patient oriented x3, gait normal, moves all extremities, Normal light touch and pain sensation, no focal motor deficits, CN's II-XI intact bilaterally and normal sensation to monofilament Extrem Other: Bilateral bunion present General: Yes full ROM, Yes no joint enlargement, Yes no pedal edema and Yes normal gait Psych Appearance: grossly normal and well kempt Mental Status: mental status grossly normal Speech and movement: Normal speech and movement present Affect: normal affect Results Reviewed Results Reviewed: Name: Mayte Flanagan Age/Sex: 59/F : 1965 Unit#: [id number] Attend Dr: Catalina Tavares MD Re03/27/25 Status: DEP REF Location: [facility] Disch: SPEC : [id number] TERRANCE: 03/27/2540 STATUS: COMP REQ : [id number] RECD: 03/27/[address]: Catalina Tavares MD COMP: 03/27/251054 ENTERED: 03/27/25-[address] [facility] [address]: ORDERED: Met Prof Fast, AST, ALT, Lipid Panel, Vitamin D 25-OH Test Result Flag Reference Sodium 142 135-145 mmol/L Potassium 4.7 3.3-5.1 mmol/L CL 106 96-108 mmol/L CO2 27 22-29 mmol/L Gap 14 12-20 BUN 13 9-16 mg/dL Creat 0.54 0.5-1.4 mg/dL eGFR > 60 Chronic Kidney Disease: Estimated GFR < 60 mL/min/1.73m2 Severe Kidney Disease: Estimated GFR < 15 mL/min/1.73m2 FBS 150 H 60-99 mg/dL A fasting glucose of 126 mg/dl or greater on more than one occasion is considered diagnostic of diabetes. CA 9.3 8.4-10.2 mg/dL AST (GOT) 26 5-31 U/L ALT (GPT) 17 0-31 U/L Triglyceride 128 <150 mg/dL Desirable Triglyceride: less than 150 mg/dL Borderline High Triglyceride 150-199 mg/dL High Triglyceride: 200-499 mg/dL Very High Triglyceride: greater than or equal to 5OO mg/dL Cholesterol 141 <200 mg/dL Desirable Cholesterol: less than 200 mg/dL Borderline High Cholesterol: 200-239 mg/dL High Cholesterol: greater than 239 mg/dL LDL Calculated 81 <100 mg/dL Desirable LDL: less than 100 mg/dL Near Optimal/Above Optimal LDL: 110-129 mg/dL Borderline High LDL: 130-159 mg/dL High LDL: 160-189 mg/dL Very High LDL: greater than or equal to 190 mg/dL HDL 35 L >40 mg/dL Desirable HDL: greater than 40 mg/dL Note: This HDL assay may give artificially low results in patients with liver disease. Vitamin D 25-OH 125.3 >30 ng/mL Health Based Reference Values* < 20 ng/mL Deficient 20-30 ng/mL Insufficient > 30 ng/mL Sufficient Laboratory Tests 03/27/25 03/27/25 07:40 07:45 Estimat Average Glucose 163 Hemoglobin A1c % 7.3 H Urine Creatinine 59.39 Urine Microalbumin 7.0 Microalb/Creat Ratio 11.7 Coding Level of Care Code Est Pt Level 4 (77515) Complex EM visit Add On G2211 Diagnoses Type 2 diabetes mellitus with hyperglycemia, without long-term current use of insulin E11.65 Diabetes mellitus type: type 2 Dyslipidemia E78.5 Essential hypertension I10 Additional Codes PHQ-9 - 94384 - PHQ-9 Billing: Yes ([id number]) ALMITA-7 Assessment Billing - ALMITA-7 Assessment Tool: ALMITA-7 Assessment 86465 ([id number]) Assessment & Plan Assessment & Plan (1) Diabetes mellitus with hyperglycemia, without long-term current use of insulin: Code(s): E11.65 - Type 2 diabetes mellitus with hyperglycemia Category: Medical Qualifiers: Diabetes mellitus type: type 2 Qualified Code(s): E11.65 - Type 2 diabetes mellitus with hyperglycemia Plan: Latest hemoglobin A1c is higher at 7.3%, reinforced importance of following recommended diet and getting regular exercise. Started on Ozempic 0.25 mg injected subcutaneously once a week. Discussed possible side effects of medication which may include abdominal cramping gastroparesis, some alteration in bowel habits, increased risk for pancreatitis, visual field changes, instructed on proper use of medication. Will continue her on metformin 1000 mg 1 tablet twice a day and Jardiance 25 mg daily in the morning. Discontinue glipizide ER. Reinforced importance of adherence to healthy eating habits and getting regular exercise. Will see her back for follow-up in 3 months , up-to-date with diabetes eye exam (2) Dyslipidemia: Code(s): E78.5 - Hyperlipidemia, unspecified Category: Medical Plan: Reviewed recent fasting lipid profile with patient with levels within normal limits except for low good cholesterol or HDL . Continue pravastatin 80 mg at bedtime. , in addition to adherence to low-cholesterol diet and regular exercise, at least 30 minutes 3 to 4 times a week. Advised patient to make healthy food choices, eat more fruits, vegetables, whole grains, wild caught fish and low-fat dairy. Limit amount of meat and fried or fatty food products, as well as processed foods and fast foods. Follow-up scheduled with repeat fasting lipid panel in 3 months. (3) Essential hypertension: Code(s): I10 - Essential (primary) hypertension Category: Medical Plan: Blood pressure at goal of less than 130/80. Continue with current medication. Reinforced importance of following a low sodium diet, getting regular exercise, and lowering stress levels. Orders: Orders Basic Metabolic Panel Fasting 06/06/25 E11.65 - Type 2 diabetes mellitus with hyperglycemia, E78.5 - Hyperlipidemia, unspecified, I10 - Essential (primary) hypertension Aspartate Amino Transferase 06/06/25 E11.65 - Type 2 diabetes mellitus with hyperglycemia, E78.5 - Hyperlipidemia, unspecified, I10 - Essential (primary) hypertension Alanine Aminotransferase 06/06/25 E11.65 - Type 2 diabetes mellitus with hyperglycemia, E78.5 - Hyperlipidemia, unspecified, I10 - Essential (primary) hypertension Hemoglobin A1c 06/06/25 E11.65 - Type 2 diabetes mellitus with hyperglycemia, E78.5 - Hyperlipidemia, unspecified, I10 - Essential (primary) hypertension Lipid Panel 06/06/25 E11.65 - Type 2 diabetes mellitus with hyperglycemia, E78.5 - Hyperlipidemia, unspecified, I10 - Essential (primary) hypertension Medications: New Ozempic (semaglutide) for 4 weeks 0.25 mg (0.368 mL) subcut QWEEK 3 mL 4RF NS E11.65 - Type 2 diabetes mellitus with hyperglycemia, E78.5 - Hyperlipidemia, unspecified, I10 - Essential (primary) hypertension Changed From omeprazole 20 mg PO DAILY 10 days 10 caps 0RF To omeprazole 20 mg PO DAILY 3 months 90 caps 0RF Discontinued glipizide ER Discontinued Reason: Doctor's Order 10 mg (2 x 5 mg) PO BID 90 days 360 tabs 1RF E11.65 - Type 2 diabetes mellitus with hyperglycemia
[2025-03-31 08:56] VITALS: BP 124/64; PULSE 99; RESP 12; TEMP 36.4; O2SAT 97; BMI 28.3
== END 2025-03-31 09:31 | disposition home or self-care (01) ==
LOC: HO.HMCC 08:22
PROVIDERS: PCP Internal Medicine; Visit Provider Internal Medicine
DX: E11.65 Type 2 diabetes mellitus with hyperglycemia (principal); E78.5 Hyperlipidemia, unspecified; I10 Essential (primary) hypertension

== ENCOUNTER → 2025-03-31 08:21 | Outpatient (BNVA) | payer OTHER, SELFPAY | PROVIDERS: PCP Internal Medicine; Visit Provider Internal Medicine | DX: E11.65 Type 2 diabetes mellitus with hyperglycemia (principal); E78.5 Hyperlipidemia, unspecified; I10 Essential (primary) hypertension; Z87.442 Personal history of urinary calculi | CPT/HCPCS: 96127 ==

== ENCOUNTER 2025-06-26 07:31 | Outpatient (REF) | payer OTHER, SELFPAY ==
--- OUTSIDE RECORDS SUMMARY | 2025-06-26 07:33 | XMS_ITS | Patient Health Record ---
Author Organization [facility] Address [address] [place] [address] Care Team Providers Care Lobster Catcher Name Role Phone Chaitanya CHAMBERS, Catalina Primary Care Provider Nael Do [phone] Reason For Referral No Information Medications Medication SIG (Take, Route, Fr equency, Duration) Notes Start Date End Date Status Gemfibrozil 600mg Ac tive Pravastatin Sodium A ctive Suprep Bowel Prep 1 as directed Orally a s directed for 1 dose 03/31/2015 Active metFORMIN HCl 1000mg Active glipiZIDE 5mg Active Multi Vitamin/Minerals Active Lisinopril Active Vitamin D Active Problems Problem Type SNOMED Code ICD Code Onset Dates Problem Status W/U Status Risk Notes Problem Long-term current use of drug therapy (441367476) Encounter for long-term (current) use of other medications (V58.69) Active confirmed Problem Colon cancer screening (503467661) Colon cancer screening (V76.51) Active confirmed Plan Of Treatment Future Test Test Name Order Date COLONOSCOPY 01/23/2014 Next Appt Details Provider Name:Nael Stoddard , 10/22/2025 11:00:00 AM, [address], [address], [place], [address], Insurance Providers Payer Name Payer Address Payer Phone Subscriber Number Group Number Insured Name Patient Relationship to Insured Coverage Start Date Coverage End Date [facility] [address] [place] [address] [id number] KIERAN BLACKMON Self - patient is the insured Medical (General) History Medical History History ICD Code NIDDM hypertension Denies [place],CVA,Lung disease,renal disease Hyperlipidemia Kidney stones Surgical History Surgery Date(Month/Year) partial hysterectomy
[2025-06-26 10:35] LABS: Hemoglobin A1C 218.0820 umol/L; Total Hemoglobin (HGBA1C) 3556.4324 umol/L
[2025-06-26 10:44] LABS: Alanine Aminotransferase 18 U/L (0-31); Anion Gap 13 (12-20); Aspartate Amino Transferase 20 U/L (5-31); Blood Urea Nitrogen 15 mg/dL (9-16); Calcium 9.0 mg/dL (8.4-10.2); Carbon Dioxide 26 mmol/L (22-29); Chloride 106 mmol/L (96-108); Cholesterol 150 mg/dL (<200); Estimated Glomerular Filt Rate > 60; HDL Cholesterol 32 mg/dL (>40); Potassium 4.0 mmol/L (3.3-5.1); Sodium 141 mmol/L (135-145); Triglycerides 224 mg/dL (<150)
== END 2025-06-26 07:32 | disposition home or self-care (01) ==
LOC: HO.HMGCLDS 07:31
PROVIDERS: PCP Internal Medicine; Visit Provider Internal Medicine
DX: E11.65 Type 2 diabetes mellitus with hyperglycemia (principal); E78.5 Hyperlipidemia, unspecified; I10 Essential (primary) hypertension
CPT/HCPCS: 36415; 80048; 80061; 83036; 84450; 84460

== ENCOUNTER 2025-07-01 07:50 | Outpatient (AMB) | payer OTHER, SELFPAY ==
--- OUTSIDE RECORDS SUMMARY | 2025-07-01 07:54 | XMS_ITS | Patient Health Record ---
Author Organization [facility] Address [address] [place] [address] Care Team Providers Care Scrap Picker Name Role Phone Chaitanya CHAMBERS, Catalina Primary Care Provider Nael Do [phone] Reason For Referral No Information Medications Medication [...] Problem Long-term current use of drug therapy ([id number]) Encounter for long-term (current) use of other medications (V58.69) Active confirmed Problem Colon cancer screening (V76.51) Active confirmed Plan Of Treatment Future Test Test Name Order Date COLONOSCOPY 01/23/2014 Next Appt Details Provider Name:Nael Stoddard , 10/22/2025 11:00:00 AM, [address], [address], [place], [address], Insurance Providers Payer Name Payer Address Payer Phone Subscriber Number Group Number Insured Name Patient Relationship to Insured Coverage Start Date Coverage End Date [facility] [address] [place] [address] [phone] [id number] KIERAN BLACKMON Self - patient is the insured Medical (General) History Medical History History ICD Code NIDDM hypertension Denies [place],CVA,Lung disease,renal disease Hyperlipidemia Kidney stones Surgical History Surgery Date(Month/Year) partial hysterectomy
--- NOTE | 2025-07-01 07:57 | MHC.PC.OV ---
Vital Signs 07/01/25 08:00 Height 4 ft 11 in Weight 132 lb BMI 26.7 BP 128/54 L Blood Pressure Location Rt brachial Position Sitting Respiration 16 Pulse 92 Pulse Source Pulse Oximeter Temp 98.4 F Temp Source Oral Pulse Oximetry (%) 100 Oxygen Delivery Method Room Air Intake Visit Reasons: 3m follow up Intake Note: Pt is here today for her 3mo. f/u Allergies No Known Allergies Allergy (Verified 07/01/25 08:04) Medication List - Last Reconciled 07/01/25 by Catalina Tavares MD cholecalciferol (vitamin D3) 50 mcg PO DAILY cinnamon bark (Cinnamon) 1,000 mg PO DAILY empagliflozin 25 mg PO QAM losartan 50 mg PO DAILY metformin 1,000 mg PO BID mv-mn-folic ac-vit K-herb 289 800-100 mcg (Alive Once Daily Women 50 Plus) tabs PO omega 0-jho-smm-fish oil 60-90-500 mg (Fish Oil) 1 cap PO DAILY omeprazole 20 mg PO DAILY 3 months Ozempic (semaglutide) 0.5 mg (0.736 mL) subcut QWEEK NS pravastatin 80 mg PO DAILY Tobacco use date assessed: 07/01/25 Dental Screening Dental Screen Date: 03/31/25 HPI 3m follow up HPI Details - The patient is a 59-year-old female presenting with diabetes mellitus with retinopathy. - The patient's hemoglobin A1c increased from 7.3% to 7.8%, indicating worsening glycemic control. - The patient is on metformin, Jardiance, and Ozempic for diabetes management. - The patient experienced a lapse in Ozempic, just for 1 week , due to insurance issues, which may have contributed to the increase in A1c. - The patient reports not regularly checking blood glucose levels despite having a glucometer. - The patient has mild retinopathy with some involvement of the right eye - Hyperlipidemia is present with elevated triglycerides and low HDL cholesterol, although LDL cholesterol is well-controlled. - The patient engages in walking as a form of exercise but is advised to increase the frequency - The patient is up to date with eye exams and has a glaucoma suspect status and mild retinopathy OD. - Preventative care measures include colon cancer screening with Cologuard scheduled for consult next month, influenza vaccination, pneumonia vaccination, and shingles vaccination. 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 Brother Diabetes Heart disease Brother Mental health disorder Sister Family hx-anemia Maternal Uncle Substance use disorder Social History Housing: House Alcohol intake: never Comment: medicated, see MAR Patient Tobacco Use Status: Never used Tobacco e-Cigarette/Vaping Use: Never Used service: No Current occupational status: employed Cognitive needs: No Hearing needs: No Vision needs: Yes Questionnaire PHQ-9 Over the last 2 weeks, how often have you been bothered by any of the following problems? Depression Screening Interpretation: Negative Depression Screening Done: Yes Source: Developed by Drs. Nael Antonio, Zeina Jaime, Willam Ochoa and colleagues, with an educational maría elena from [employer]. Thrive Questionnaire Date Thrive assessed: 07/10/24 I am a: Patient What is your living situation today?: I have a steady place to live Within the past 12 months, did the food you bought not last and you didn't have the money to get more?: Never true Within the past 12 months, did you worry whether your food would run out before you got money to buy more?: Never true Do you have trouble paying for medicines?: No Do you have trouble getting transportation to medical appointments?: No Do you have trouble paying your heating and electricity bill?: No Do you have trouble taking care of your child, family member or friend?: No Do you have trouble with day-to-day activities such as bathing, preparing meals, shopping, managing finances, etc.?: No Are you currently unemployed and looking for a job?: No Are you interested in more education?: No Please select the resources that you would like help with: None Currently or been in a relationship where the following occur: No concerns reported THRIVE Score: 0 ALMITA-7 AMB Questionnaire ALMITA-7 Date ALMITA - 7 assessed: 03/31/25 Source: Developed by Drs. Nael Antonio, Zeina Jaime, Willam Ochoa and colleagues, with an educational maría elena from [employer]. Review of Systems Eyes Details: Sees Dr. Fu for her diabetes retinopathy screening, up-to-date, mild retinopathy seen OD 03/09/2025 Reports no additional complaints ENT Reports no additional complaints Card Reports as per HPI Resp Reports no additional complaints GI Reports no additional complaints Reports as per HPI Musc Reports as per HPI Skin/Breast Details: Sees Dr. Le, has appointment next month for routine skin check and to have a scaly lesion in back of left ear checked Denies breast swelling, Denies breast pain and Denies breast mass Neuro Reports no additional complaints Psych Reports no additional complaints Endo Reports no additional complaints Bro/Lymph Reports no additional complaints Aller/Immun Reports no additional complaints Physical exam (Primary Care) Vital Signs: Last Vital Signs Temp 98.4 F 07/01/25 08:00 Pulse 92 07/01/25 08:00 Resp 16 07/01/25 08:00 BP 128/54 L 07/01/25 08:00 Pulse Ox 100 07/01/25 08:00 Oxygen Delivery Method Room Air 07/01/25 08:00 BMI result Body Mass Index 26.7 Tobacco/Smoking Status: Tobacco use Status Tobacco use date assessed 07/01/25 07/01/25 08:08 Patient Tobacco Use Status Never used Tobacco 07/01/25 07:58 e-Cigarette/Vaping Use Never Used 07/01/25 07:58 Depression Screening Interpretation: Negative Thrive Assessment: Date of Thrive Assessment Date Thrive assessed 07/10/24 07/01/25 07:58 Currently or been in a relationship where the following occur: No concerns reported Const Other: Alert oriented x3, no acute distress noted ambulatory normal gait Orientation/consciousness: patient oriented x3 HENMT Ears: TM's normal bilaterally and EAC's normal General nose exam: Normal external nose present Face and sinus: Yes face symmetric Mouth: Normal oral and palatal mucosa present and moist mucous membranes Eyes General: appearance normal, both eyes and all related structures Neck Neck: Yes no lymphadenopathy and Yes supple Resp Auscultation: clear to auscultation bilaterally Cardio Other: S1-S2 present regular rate and rhythm GI Palpation (GI): Soft to palpation, nontender, no guarding and no masses General: Yes no CVA tenderness Back/Spine/Pelvis Back: no CVA tenderness and No back tenderness Skin Other: Slightly raised scaly lesion in left retroauricular area, with numerous hyperpigmented spots noted on neck, chest Neuro General: patient oriented x3, gait normal, moves all extremities, Normal light touch and pain sensation, no focal motor deficits, CN's II-XI intact bilaterally and normal sensation to monofilament Extrem Other: Bilateral bunion present General: Yes full ROM, Yes no joint enlargement, Yes no pedal edema and Yes normal gait Psych Appearance: grossly normal and well kempt Mental Status: mental status grossly normal Speech and movement: Normal speech and movement present Affect: normal affect Coding Level of Care Code Est Pt Level 4 (50148) Complex EM visit Add On G2211 Diagnoses Essential hypertension I10 Dyslipidemia E78.5 Diabetes mellitus with retinopathy of right eye, without long-term current use of insulin E11.319 Assessment & Plan Assessment & Plan (1) Essential hypertension: Code(s): I10 - Essential (primary) hypertension Category: Medical (2) Dyslipidemia: Code(s): E78.5 - Hyperlipidemia, unspecified Category: Medical (3) Diabetes mellitus with retinopathy of right eye, without long-term current use of insulin: Code(s): E11.319 - Type 2 diabetes mellitus with unspecified diabetic retinopathy without macular edema Category: Medical Plan During the visit, we discussed the management of diabetes mellitus with retinopathy, emphasizing the importance of medication adherence and regular blood glucose monitoring. We also reviewed the patient's lipid profile and recommended lifestyle modifications to improve it. Preventative care measures, including vaccinations and screenings, were outlined to ensure comprehensive health maintenance. Continued on present medication, will repeat labs again in 3 months to be done at least a week prior to next visit. Orders: Orders Vitamin D 25-OH Total 10/05/25 E11.319 - Type 2 diabetes mellitus with unspecified diabetic retinopathy without macular edema, E11.3291 - Type 2 diabetes mellitus with mild nonproliferative diabetic retinopathy without macular edema, right eye, E78.5 - Hyperlipidemia, unspecified, I10 - Essential (primary) hypertension Alanine Aminotransferase 10/05/25 E11.319 - Type 2 diabetes mellitus with unspecified diabetic retinopathy without macular edema, E11.3291 - Type 2 diabetes mellitus with mild nonproliferative diabetic retinopathy without macular edema, right eye, E78.5 - Hyperlipidemia, unspecified, I10 - Essential (primary) hypertension Hemoglobin A1c 10/05/25 E11.319 - Type 2 diabetes mellitus with unspecified diabetic retinopathy without macular edema, E11.3291 - Type 2 diabetes mellitus with mild nonproliferative diabetic retinopathy without macular edema, right eye, E78.5 - Hyperlipidemia, unspecified, I10 - Essential (primary) hypertension Lipid Panel 10/05/25 E11.319 - Type 2 diabetes mellitus with unspecified diabetic retinopathy without macular edema, E11.3291 - Type 2 diabetes mellitus with mild nonproliferative diabetic retinopathy without macular edema, right eye, E78.5 - Hyperlipidemia, unspecified, I10 - Essential (primary) hypertension Aspartate Amino Transferase 10/05/25 E11.319 - Type 2 diabetes mellitus with unspecified diabetic retinopathy without macular edema, E11.3291 - Type 2 diabetes mellitus with mild nonproliferative diabetic retinopathy without macular edema, right eye, E78.5 - Hyperlipidemia, unspecified, I10 - Essential (primary) hypertension Medications: Refilled metformin Please call to schedule PCP appt for more refills 1,000 mg PO BID 180 tabs 4RF omeprazole 20 mg PO DAILY 90 caps 1RF 3 months empagliflozin 25 mg PO QAM 90 tabs 4RF E11.65 - Type 2 diabetes mellitus with hyperglycemia losartan 50 mg PO DAILY 90 tabs 4RF I10 - Essential (primary) hypertension pravastatin 80 mg PO DAILY 90 tabs 4RF
[2025-07-01 08:00] VITALS: BP 128/54; PULSE 92; RESP 16; TEMP 36.9; O2SAT 100; BMI 26.7
== END 2025-07-01 09:16 | disposition home or self-care (01) ==
LOC: HO.HMCC 07:51
PROVIDERS: PCP Internal Medicine; Visit Provider Internal Medicine
DX: I10 Essential (primary) hypertension (principal); E78.5 Hyperlipidemia, unspecified; E11.319 Type 2 diabetes mellitus with unspecified diabetic retinopathy without macular edema

== ENCOUNTER 2025-10-12 08:15 | Outpatient (REF) | payer OTHER, SELFPAY ==
[2025-10-12 11:51] LABS: Alanine Aminotransferase 16 U/L (0-31); Aspartate Amino Transferase 26 U/L (5-31); Cholesterol 152 mg/dL (<200); HDL Cholesterol 43 mg/dL (>40); Triglycerides 162 mg/dL (<150)
== END 2025-10-12 08:16 | disposition home or self-care (01) ==
LOC: HO.HMGCLDS 08:15
PROVIDERS: PCP Internal Medicine; Visit Provider Internal Medicine
DX: I10 Essential (primary) hypertension (principal); E78.5 Hyperlipidemia, unspecified; E11.319 Type 2 diabetes mellitus with unspecified diabetic retinopathy without macular edema; E11.3291 Type 2 diabetes mellitus with mild nonproliferative diabetic retinopathy without macular edema, right eye; Z13.21 Encounter for screening for nutritional disorder
CPT/HCPCS: 36415; 80061; 82306; 83036; 84450; 84460

== ENCOUNTER 2025-10-20 15:40 | Outpatient (AMB) | payer OTHER, SELFPAY ==
[2025-10-20 15:46] VITALS: BP 122/60; PULSE 99; RESP 16; TEMP 36.9; O2SAT 98; BMI 25.9
--- NOTE | 2025-10-20 15:46 | MHC.PC.OV ---
Vital Signs 10/20/25 15:46 Height 4 ft 11 in Weight 128 lb BMI 25.9 BP 122/60 Blood Pressure Location Lt brachial Position Sitting Respiration 16 Pulse 99 Pulse Source Pulse Oximeter Temp 98.5 F Temp Source Oral Pulse Oximetry (%) 98 Oxygen Delivery Method Room Air Intake Visit Reasons: f/u labs Intake Note: Pt is here today for her lab results Equal Opportunity Officer Required: No Allergies No Known Allergies Allergy (Verified 10/20/25 16:01) Medication List - Last Reconciled 10/20/25 by Catalina Tavares MD cholecalciferol (vitamin D3) 50 mcg PO DAILY cinnamon bark (Cinnamon) 1,000 mg PO DAILY empagliflozin 25 mg PO QAM losartan 50 mg PO DAILY metformin 1,000 mg PO BID mv-mn-folic ac-vit K-herb 289 800-100 mcg (Alive Once Daily Women 50 Plus) tabs PO omega 8-lao-zxj-fish oil 60-90-500 mg (Fish Oil) 1 cap PO DAILY omeprazole 20 mg PO DAILY 3 months Ozempic (semaglutide) 0.5 mg (0.736 mL) subcut QWEEK NS pravastatin 80 mg PO DAILY Tobacco use date assessed: 10/20/25 Dental Screening Dental Screen Date: 10/20/25 Did you have a dental visit in the last 12 months?: Yes Did you have a dental problem in the last 6 months where you did not have access to dental care?: No Was dental information given to patient?: Patient has dentist [facility] Medical History (Updated 07/21/25 @ 15:56 by Catalina Tavares MD) Wart of face 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 Brother Diabetes Heart disease Brother Mental health disorder Sister Family hx-anemia Maternal Uncle Substance use disorder Social History Housing: House Alcohol intake: never Comment: medicated, see MAR Patient Tobacco Use Status: Never used Tobacco e-Cigarette/Vaping Use: Never Used service: No Current occupational status: employed Cognitive needs: No Hearing needs: No Vision needs: Yes Questionnaire PHQ-9 Over the last 2 weeks, how often have you been bothered by any of the following problems? 1. Little interest or pleasure in doing things: not at all 2. Feeling down, depressed, or hopeless: not at all 3. Trouble falling or staying asleep, or sleeping too much: not at all 4. Feeling tired or having little energy: not at all 5. Poor appetite or overeating: not at all 6. Feeling bad about yourself - or that you are a failure or have let yourself or your family down: not at all 7. Trouble concentrating on things, such as reading the newspaper or watching television: not at all 8. Moving or speaking so slowly that other people could have noticed. Or the opposite - being so fidgety or restless that you have been moving around a lot more than usual: not at all 9. Thoughts that you would be better off or of hurting yourself in some way: not at all Total score: 0 Source: Developed by Drs. Nael Antonio, Zeina Jaime, Willam Ochoa and colleagues, with an educational maría elena from [employer]. Thrive Questionnaire Date Thrive assessed: 03/24/25 I am a: Patient What is your living situation today?: I have a steady place to live Within the past 12 months, did the food you bought not last and you didn't have the money to get more?: Never true Within the past 12 months, did you worry whether your food would run out before you got money to buy more?: Never true Do you have trouble paying for medicines?: No Do you have trouble getting transportation to medical appointments?: No Do you have trouble paying your heating and electricity bill?: No Do you have trouble taking care of your child, family member or friend?: No Do you have trouble with day-to-day activities such as bathing, preparing meals, shopping, managing finances, etc.?: No Are you currently unemployed and looking for a job?: No Are you interested in more education?: No Please select the resources that you would like help with: None Currently or been in a relationship where the following occur: No concerns reported THRIVE Score: 0 AUDIT C Alcohol Use Questionnaire (AUDIT-C) 1. How often do you have a drink containing alcohol?: Monthly or less 2. How many drinks containing alcohol do you have on a typical day when you are drinking?: 1 or 2 3. How often do you have six or more drinks on one occasion?: Never Total Score: 1 ALMITA-7 AMB Questionnaire ALMITA-7 Date ALMITA - 7 assessed: 03/31/25 Feeling nervous, anxious, or on edge: 0 = Not at all Not being able to stop or control worryin = Not at all Worrying too much about different things: 0 = Not at all Trouble relaxin = Not at all Being so restless that it is hard to sit still: 0 = Not at all Becoming easily annoyed or irritable: 0 = Not at all Feeling afraid as if something awful might happen: 0 = Not at all Total ALMITA-7 score (0-4 normal; 5-9 mild; 10-14 moderate; 15-21 severe): 0 Source: Developed by Drs. Nael Antonio, Zeina Jaime, Willam Ochoa and colleagues, with an educational maría elena from [employer]. Physical exam (Primary Care) Vital Signs: Last Vital Signs Temp 98.5 F 10/20/25 15:46 Pulse 99 10/20/25 15:46 Resp 16 10/20/25 15:46 BP 122/60 10/20/25 15:46 Pulse Ox 98 10/20/25 15:46 Oxygen Delivery Method Room Air 10/20/25 15:46 BMI result Body Mass Index 25.9 Tobacco/Smoking Status: Tobacco use Status Tobacco use date assessed 10/20/25 10/20/25 15:51 Patient Tobacco Use Status Never used Tobacco 10/20/25 15:51 e-Cigarette/Vaping Use Never Used 10/20/25 15:51 PHQ-9: PHQ-9 Score PHQ-9: Total score 0 10/20/25 15:58 Thrive Assessment: Date of Thrive Assessment Date Thrive assessed 05/20/25 12/16/25 15:51 Currently or been in a relationship where the following occur: No concerns reported Office Procedures Flu Questionnaire Does the patient have a severe egg allergy?: No Does the patient have severe life threatening allergies?: No Does the patient have a fever or illness today?: No Has the patient ever had Guillain-Snelling Syndrome?: No Has the patient ever had any past reaction to a flu shot?: No Immunizations Fluarix [id number] (PF) 45 mcg (15 mcg x 3)/0.5 mL IM syringe Performing Provider: Catalina Tavares MD [place] [facility] [place] [facility] Administered by: Vickie Flores CMA on 10/20/25 15:55 Dose Route Admin Location Dispensed Lot Number Expiration Date [facility] [employer] 0.5 mL IM Left Deltoid 0.5 mL [id number] 05/04/26 54502-341-83 [employer] VIS Given Date VIS Provided VIS Publication Date 10/20/25 Single Vaccine 24 Eligibility Eligibility Date Funding Source Not [facility] Eligible 10/20/25 Private Results Reviewed Results Reviewed: Laboratory Tests 03/27/25 10/12/25 07:45 08:25 Estimat Average Glucose 163 Hemoglobin A1c % 7.3 H Urine Creatinine 59.39 Urine Microalbumin 7.0 Microalb/Creat Ratio 11.7 Name: Mayte Flanagan Age/Sex: 60/F : 1965 Unit#: [id number] Attend Dr: Catalina Tavares MD Re10/12/25 Status: DEP REF Location: [facility] Disch: SPEC : [id number] TERRANCE: 10/12/25 STATUS: COMP REQ : [id number] RECD: 10/12/[address]: Catalina Tavares MD COMP: 10/12/25 ENTERED: 10/12/[address]: ORDERED: AST, ALT, Lipid Panel, Vitamin D 25-OH Test Result Flag Reference AST (GOT) 26 5-31 U/L ALT (GPT) 16 0-31 U/L Triglyceride 162 H <150 mg/dL Desirable Triglyceride: less than 150 mg/dL Borderline High Triglyceride 150-199 mg/dL High Triglyceride: 200-499 mg/dL Very High Triglyceride: greater than or equal to 5OO mg/dL Cholesterol 152 <200 mg/dL Desirable Cholesterol: less than 200 mg/dL Borderline High Cholesterol: 200-239 mg/dL High Cholesterol: greater than 239 mg/dL LDL Calculated 77 <100 mg/dL Desirable LDL: less than 100 mg/dL Near Optimal/Above Optimal LDL: 110-129 mg/dL Borderline High LDL: 130-159 mg/dL High LDL: 160-189 mg/dL Very High LDL: greater than or equal to 190 mg/dL HDL 43 >40 mg/dL Desirable HDL: greater than 40 mg/dL Note: This HDL assay may give artificially low results in patients with liver disease. Vitamin D 25-OH 80.8 >30 ng/mL Health Based Reference Values* < 20 ng/mL Deficient 20-30 ng/mL Insufficient > 30 ng/mL Sufficient Coding Level of Care Code Est Pt Level 4 (00422) Diagnoses Essential hypertension I10 Dyslipidemia E78.5 Diabetes mellitus with retinopathy of right eye, without long-term current use of insulin E11.319 Assessment & Plan Assessment & Plan (1) Essential hypertension: Code(s): I10 - Essential (primary) hypertension Category: Medical (2) Dyslipidemia: Code(s): E78.5 - Hyperlipidemia, unspecified Category: Medical (3) Diabetes mellitus with retinopathy of right eye, without long-term current use of insulin: Code(s): E11.319 - Type 2 diabetes mellitus with unspecified diabetic retinopathy without macular edema Category: Medical Orders: Orders Influenza [id number] Immunization Today Z23 - Encounter for immunization Basic Metabolic Panel Fasting 01/03/26 E11.319 - Type 2 diabetes mellitus with unspecified diabetic retinopathy without macular edema, E78.5 - Hyperlipidemia, unspecified, I10 - Essential (primary) hypertension Microalbumin, Random (w Creat) 01/03/26 E11.319 - Type 2 diabetes mellitus with unspecified diabetic retinopathy without macular edema, E78.5 - Hyperlipidemia, unspecified, I10 - Essential (primary) hypertension Lipid Panel 01/03/26 E11.319 - Type 2 diabetes mellitus with unspecified diabetic retinopathy without macular edema, E78.5 - Hyperlipidemia, unspecified, I10 - Essential (primary) hypertension Vitamin D 25-OH Total 01/03/26 E11.319 - Type 2 diabetes mellitus with unspecified diabetic retinopathy without macular edema, E78.5 - Hyperlipidemia, unspecified, I10 - Essential (primary) hypertension Aspartate Amino Transferase 01/03/26 E11.319 - Type 2 diabetes mellitus with unspecified diabetic retinopathy without macular edema, E78.5 - Hyperlipidemia, unspecified, I10 - Essential (primary) hypertension Alanine Aminotransferase 01/03/26 E11.319 - Type 2 diabetes mellitus with unspecified diabetic retinopathy without macular edema, E78.5 - Hyperlipidemia, unspecified, I10 - Essential (primary) hypertension Hemoglobin A1c 01/03/26 E11.319 - Type 2 diabetes mellitus with unspecified diabetic retinopathy without macular edema, E78.5 - Hyperlipidemia, unspecified, I10 - Essential (primary) hypertension Medications: Changed From Ozempic (semaglutide) for 4 weeks 0.5 mg (0.736 mL) subcut QWEEK 3 mL 4RF NS E11.65 - Type 2 diabetes mellitus with hyperglycemia, E78.5 - Hyperlipidemia, unspecified, I10 - Essential (primary) hypertension To Ozempic (semaglutide) for 4 weeks 0.5 mg (0.736 mL) subcut QWEEK 9.568 mL 2RF 3 months NS E11.65 - Type 2 diabetes mellitus with hyperglycemia, E78.5 - Hyperlipidemia, unspecified, I10 - Essential (primary) hypertension
--- OUTSIDE RECORDS SUMMARY | 2025-10-20 19:49 | XMS_ITS | Data Portability ---
Author Organization [facility] Telehealth Patient Home Address [address] [place] [address] Assessment No assessment recorded. Plan of Treatment Reminders Order Date Submit Date Provider Last Modified By Organization Details Last Modified Time Details Appointments None recorded. Lab HbA1c (hemoglobi n A1c), blood 2019 [facility], [address] [place] [address], [id number], 0 09:22:14 HbA1c (hemoglobi n A1c), blood 2018 019 [facility], [address] [place] [address], 06796, 9 08:25:15 microalbum in, urine 2018 019 [facility], [address] [place] [address], 99726, 9 08:25:15 HbA1c (hemoglobi n A1c), blood 2018 020 [facility], [address] [place] [address], 34778, 9 08:25:15 microalbum in, urine 2018 020 [facility], [address] [place] [address], 20660, 9 08:25:15 lipid panel, blood 2018 019 [facility], [address] [place] [address], 24585, 9 08:25:15 lipid panel, blood 2018 020 [facility], [address] [place] [address], 67271, 9 08:25:15 CMP, serum or plasma 2018 019 [facility], [address] [place] [address], 19083, 9 08:25:15 CMP, serum or plasma 2018 020 [facility], [address] [place] [address], 11829, 9 08:25:15 glycohemog lobin, total, blood 2017 018 [facility], [address] [place] [address], 25592, 8 08:58:58 microalbum in/creatin ine, ratio panel, urine 2017 018 [facility], [address] [place] [address], 00626, 8 08:58:59 TSH + free T4, serum [address] [facility], [address] [place] [address], 84275, 8 06:53:08 glycohemog lobin, total, blood [address] [facility], [address] [place] [address], 76827, 9 13:29:25 glycohemog lobin, total, blood 2018 019 [email or web address] [facility], [address] [place] [address], 35752, 9 07:26:13 glycohemog lobin, total, blood 2018 019 [facility], [address] [place] [address], 18705, 9 08:16:26 glycohemog lobin, total, blood [email or web address] [place] [address] Laboratory, [address] [place] [address], 30368, 9 10:21:54 glycohemog lobin, total, blood 2018 020 [email or web address] 10 [facility], [address] [place] [address], 47394, 0 08:38:34 glycohemog lobin, total, blood 2019 020 [email or web address] 10 [facility], [address] [place] [address], 77258, 0 08:16:32 glycohemog lobin, total, blood 2019 020 [email or web address] 10 [facility], [address] [place] [address], 53463, 0 08:44:47 glycohemog lobin, total, blood 2019 020 [facility], [address] [place] [address], 78214, 0 08:50:44 glycohemog lobin, total, blood 2019 021 [facility], [address] [place] [address], 45864, 1 09:56:31 lipid panel, blood 2017 018 [facility], [address] [place] [address], 38023, 8 08:58:58 CBC 2017 018 [facility], [address] [place] [address], 39761, 8 08:58:59 lipid panel, blood [address] [facility], [address] [place] [address], 03794, 9 07:26:13 lipid panel, blood [address] [facility], [address] [place] [address], 66558, 9 09:07:59 lipid panel, blood 2018 020 [email or web address] 10 [facility], [address] [place] [address], 63610, 0 08:16:32 lipid panel, blood 2019 020 [facility], [address] [place] [address], 39324, 0 08:50:44 CMP, serum or plasma 2017 018 [facility], [address] [place] [address], 44743, 8 08:58:58 CMP, serum or plasma [address] [facility], [address] [place] [address], 72347, 9 13:29:25 CMP, serum or plasma 2018 019 [email or web address] [facility], [address] [place] [address], 22958, 9 07:26:13 CMP, serum or plasma 2018 019 [facility], [address] [place] [address], 22533, 9 08:16:25 CMP, serum or plasma 2018 019 [email or web address] [facility], [address] [place] [address], 17263, 9 10:21:54 CMP, serum or plasma 2018 020 [email or web address] 10 [facility], [address] [place] [address], 35410, 0 08:38:06 CMP, serum or plasma 2019 020 [email or web address] 10 [facility], [address] [place] [address], 33593, 0 08:16:32 CMP, serum or plasma 2019 020 [email or web address] 10 [facility], [address] [place] [address], 44507, 0 08:44:47 CMP, serum or plasma 2019 020 [facility], [address] [place] [address], 97200, 0 08:50:44 CMP, serum or plasma 2019 021 [facility], [address] [place] [address], 96878, 1 09:56:31 Referral orthopedic referral 2019 020 danielle Ludwig MD, [address], [facility] [address], [place], [address], 0 08:17:18 physical therapist referral 2017 018 [facility], [address] [place] [address], [place], [address], 8 15:00:55 general surgeon referral 2017 018 DENZEL Diamond MD, [address] [place] [address] [place], [address], 8 15:50:23 Procedures None recorded. Surgeries None recorded. Imaging XR, knee 2019 020 [place], [address], 0 08:17:31 Medication Orders naproxen 500 mg tablet 2019 020 [id number], [address] [place], [address], 0 09:44:02 glipizide ER 5 mg tablet, extended release 24 hr 2018 019 [facility], [address] [place], [address], 9 14:03:50 metformin 1,000 mg tablet 2018 019 [facility], [address] [place], [address], 9 14:03:51 pravastati n 80 mg tablet 2018 019 [facility], [address] [place], [address], 9 14:03:50 losartan 25 mg tablet 2018 019 [facility], [address] [place], [address], 9 14:03:51 prednisone 20 mg tablet 2017 018 [facility], [address] [facility] [place], [address], 9 13:32:16 Patient TargetsNo targets recorded. Patient Instructions Encounter Date Encounter Id Patient Instructions Last Modified By Organization Details Last Modified Time 07/12/2018 [id number] Continue to work on healthy diet and exercise xavier Not available 07/12/2018 12:41:27 06/10/2019 [id number] high blood pressure: care instructions Not available 06/10/2019 14:03:48 learning about high blood pressure Not available 06/10/2019 14:03:48 12/10/2019 [id number] shoulder stretches: exercises Not available 12/10/2019 09:44:00 [...] record ed. xavier Not Available 2018 13:25:57 11/21/19 20 11/19/2019 juanjose ESQUIVEL, bilat eral No observ ation record ed. [email or web address] [facility] [address] [facility], [place], [address], 11/21/2019 10:55:13 01/02/20 20 01/02/2020 XR, knee No observ ation record ed. [facility] [address] [place] [address], [place], [address], 01/05/2020 09:50:54 Result Notes None recorded. Problems Name Problem SNOMED Code Status Onset Date Resolution Date Notes Provider Name and Address Organization Details Recorded Time Pre-existing type 2 diabetes mellitus 525990944 Active 2017 Not Available [facility] 0 02:04:29 Hypercholeste rolemia 46342748 Active 2017 Not Available [facility] 0 02:04:29 Essential hypertension 11340221 Active 2017 Not Available [facility] 0 02:04:29 Type 2 diabetes mellitus 59973007 Active 2018 Not Available [facility] 0 02:04:29 Problem Notes None recorded. Medical Equipment None Reported. [...] Not Available No t Available Afluria Qd (36 mos up)(PF)60 mcg (15 mcg x4)/0.5 mL IM syringe active Not Available Not Available N ot Available Vitals Date Recorded Body height Body mass index (BMI) Body weight Heart rate Oxygen saturation Systolic And Diastolic Provider Name and Address Organization Details Last Updated DateTime 0 149.86 cm 29.5 kg/m2 97005.2 g 90 /min 99 % 144/82 mm[Hg] [facility] 0 09:06:24 Date Recorded Body height Body mass index (BMI) Body weight Heart rate Oxygen saturation Systolic And Diastolic Provider Name and Address Organization Details Last Updated DateTime 9 149.86 cm 29.7 kg/m2 89973.7 2 g 87 /min 99 % 132/70 mm[Hg] [facility] 9 13:33:42 Date Recorded Body weight Body mass index (BMI) Body height Heart rate Oxygen saturation Systolic And Diastolic Provider Name and Address Organization Details Last Updated DateTime 8 70312.0 5 g 29.4 kg/m2 149.86 cm 76 /min 98 % 130/74 mm[Hg] [facility] 8 11:46:29 Date Recorded Heart rate Provider Name an d Address Organization Details Last Updated DateTime 07/29/2018 80 /min Nara Berrios NP, [address] [place] [address], [place], [address], [facility] 07/29/2018 14:06:56 Date Recorded Body height Body mass index (BMI) Body weight Heart rate Oxygen saturation Systolic And Diastolic Provider Name and Address Organization Details Last Updated DateTime 8 149.86 cm 29.7 kg/m2 30805.0 8 g 102 /min 98 % 130/70 mm[Hg] [facility] 8 13:32:31 Social History Question Answer Notes LastModified by Organizat ion Details LastModified Time Tobacco Smoking Status Never Smoker Not Available [facility] 09/07/2020 03:36:24 What Was The Date Of Your Most Recent Tobacco Screening? 07/29/2018 [id number] Information not available 09/07/2020 Sex: Unknown Functional Status None recorded. Mental Status None recorded. Family History Nothing Reported. Medical History No medical history recorded. Gynecological HistoryNo gynecological history recorded. Obstetrics History GPAL:G 0 P 0 0 0 0 Immunizations Vaccine Type Date Status Note Provider Nam e and Address Organization Details Recorded Time Influenza, split virus, quadrivalent, preservative 0 completed Marcie Hager [facility] 2020 08:24:15 Past Encounters Encounter ID Performer Location Encounter Start Date Encounter Closed Date Diagnosis/Indication Diagnosis SNOMED-CT Code Diagnosis ICD10 Code Diagnosis IMO Codes Diagnosis Note [id number] [address] 07/12/2018 11:35:22 07/12/2018 15:06:43 Ganglion cyst 65972295 M67.40 Essential hypertension 98382327 I10 Hypercholesterolemia 136 39448 E78.00 Pre-existi ng type 2 diabetes mellitus 003573642 E11.9 [id number] [address] Rebollar [address] [address] 07/29/2018 13:27:22 07/29/2018 14:38:56 Bursitis of shoulder 623186045 M75.51 Calcific t endinitis of shoulder 25408591 M75.31 see above Pre-existi ng type 2 diabetes mellitus 247099392 E11.9 Be aware that BS's will be elevated by treatment above, while on presnisone Essential hypertension 69942839 I10 stable [id number] [address] Rebollar [address] [address] 06/10/2019 13:22:27 06/10/2019 14:12:20 Hypercholesterolemia 95191495 E78.00 Essential hypertension 41796168 I10 Type 2 alma betes mellitus 61018982 E11.9 [id number] [address] Rebollar [address] [address] 12/10/2019 09:01:28 12/10/2019 09:47:14 Hypercholesterolemia 57620497 E78.00 all at goal Essential hypertension 91262368 I10 mildly elevated Type 2 alma betes mellitus 46841982 E11.9 a1c 7.5, due for repeat Pain in left knee 308673 6666 01767 M25.562 Pain of le ft shoulder joint 8050249485 0903616 M25.512 Health Concerns Section Related Observation LastModified by Organization Detai ls LastModified Time None Recorded Concern Status LastModified by Organization Details LastModified Time None Recorded Advance Directives Directive None Recorded Payers Insurance Date Sequence Insurance Name Policy Number Policy Hooker Covered Member ID Hooker Member ID Guarantor Name 12/07/2019 1 [facility] ([id number]) [id number] Mayte Flanagan [id number] Mayte Flanagan Notes Date Note Type Note Provider Name a ia Address Organization Details Recorded Time 07/12/2018 text/html ROS as noted in the HPI Feels good, going through divorce 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 ANTONIETTA Vasquez [address] [place], [address], [facility] 06/10/2019 14:10:27 12/10/2019 text/html ROS as noted in the HPI takes meds regularly noncompliant with f/u she [...] system ROS negative except where noted above ANTONIETTA Vasquez [address] [place], [address], [facility] 12/10/2019 09:45:13 OBGyn Episode No OBEpisode recorded.
--- OUTSIDE RECORDS SUMMARY | 2025-10-20 19:49 | XMS_ITS | Patient Health Record ---
Author Organization [facility] Address [address] [place] [address] Care Team Providers Care Proposal Coordinator Name Role Phone Catalina Whitehead MD Primary Care Provider Nael Do Unavailable [phone] Reason For Referral Referring Provider First Name Catalina Referring Provider Last Name Chaitanya Referring Provider Speciality Internal M edicine Referred Organization [facility] Referred Provider Nael Graves Referred Address [address] [facility],[place], [place],[address], Referred Provider Specialty Gastroentero logy General Notes Annie Navarrete 2024 11:08:53 AM EST > called dr whitehead to request a [facility] referral for visit with dr graves on 10-22-25 for a screening colon Referral Priority Routine Medications Medication SIG (Take, Route, Frequency, Duration) Notes Start Date End Date Status Gemfibrozil 600mg Ac tive Pravastatin Sodium A ctive Suprep Bowel Prep 1 Solution as directed Orally as directed; Duration: 1 dose 03/31/2015 Active metFORMIN HCl 1000mg Active glipiZIDE 5mg Active Multi Vitamin/Minerals Active Lisinopril Active Vitamin D Active Social History Social History Additional Details Category Social Info Options Details Miscellaneous: Marital status: 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: Nonsmoker; no sig alcohol Problems Problem Type SNOMED Code ICD Code Onset Dates Problem Status W/U Status Risk Notes Problem Long-term current use of drug therapy (465492708) Encounter for long-term (current) use of other medications (V58.69) Active confirmed Problem Colon cancer screening (781976158) Colon cancer screening (V76.51) Active confirmed Plan Of Treatment Future Test Test Name Order Date COLONOSCOPY 01/23/2014 Next Appt Details Provider Name:Nael Graves , 10/22/2025 11:00:00 AM, [address], [address], [place], [address], Insurance Providers Payer Name Payer Address Payer Phone Subscriber Number Group Number Insured Name Patient Relationship to Insured Coverage Start Date Coverage End Date [facility] [address] [place] [address] [phone] [id number] KIERAN BLACKMON Self - patient is the insured Medical (General) History Medical History History ICD Code NIDDM hypertension Denies NV,CVA,Lung disease,renal disease Hyperlipidemia Kidney stones Surgical History Surgery Date(Month/Year) partial hysterectomy
== END 2025-10-20 16:12 | disposition home or self-care (01) ==
LOC: HO.HMCC 15:41
PROVIDERS: PCP Internal Medicine; Visit Provider Internal Medicine
DX: Z23 Encounter for immunization (principal)

== ENCOUNTER → 2025-10-20 15:40 | Outpatient (BNVA) | payer OTHER, SELFPAY | PROVIDERS: PCP Internal Medicine; Visit Provider Internal Medicine | DX: Z23 Encounter for immunization (principal); E11.319 Type 2 diabetes mellitus with unspecified diabetic retinopathy without macular edema; I10 Essential (primary) hypertension; E78.5 Hyperlipidemia, unspecified | CPT/HCPCS: 90471; 90656; 96127 ==